=== PATIENT | female | born 1955 | race Caucasian/White ===

== ENCOUNTER 2021-04-21 07:29 | Outpatient (REF) | payer MEDICARE, SELFPAY | END 2021-04-21 07:30 | disposition home or self-care (01) | LOC: HO.LAB 07:29 | PROVIDERS: Visit Provider Internal Medicine | DX: Z20.822 Contact with and (suspected) exposure to COVID-19 (principal) | CPT/HCPCS: C9803; U0003; U0005 ==

== ENCOUNTER 2023-05-23 13:20 | Emergency (ER) | payer MEDICARE, MEDICAID, SELFPAY ==
--- NOTE | ~2023-05-23 | XR_ITS ---
EXAMINATION: XR CHEST CLINICAL INFORMATION: Shortness of breath COMPARISON: Chest radiograph 02/09/2018 TECHNIQUE: Frontal view of the chest was obtained. FINDINGS: No significant abnormality is noted involving the heart, lungs, mediastinum, bony thorax or soft tissues. XR/XR chest 1V IMPRESSION: Unremarkable examination.
--- NOTE | 2023-05-23 13:24 | ECG_ITS ---
Test Reason : dyspnea Blood Pressure : / mmHG Vent. Rate : 095 BPM Atrial Rate : 095 BPM P-R Int : 142 ms QRS Dur : 082 ms QT Int : 348 ms P-R-T Axes : 041 -05 013 degrees QTc Int : 437 ms Normal sinus rhythm Nonspecific ST and T wave abnormality Abnormal ECG When compared with ECG of 09-FEB-2018 14:53, Heart rate has increased Referred By: Melida Tejeda Electronically Signed By:MIRIAM GOFF MD
--- NOTE | 2023-05-23 13:25 | ED.GENADULT ---
HPI - General Adult General Chief complaint: Dyspnea Stated complaint: COVID + Time Seen by Provider: 05/23/23 14:44 Source: patient Mode of arrival: ambulatory Limitations: no limitations History of Present Illness HPI narrative: patient comes to the emergency room complaining of cough, multiple asthma exacerbations. Patient has been taking albuterol nebs at home. Patient went to see her primary care physician, tested positive for COVID, patient was asked to come to emergency room for further evaluation. Patient denies chest pain or shortness of breath at this time. Earlier today when patient arrived, patient received a nebulization treatment. Related Data Previous Rx's Medication Instructions Recorded ibuprofen 600 mg tablet 600 mg PO TID PRN fever or pain 05/23/23 #14 tabs prednisone 50 mg tablet 50 mg PO DAILY #4 tabs 05/23/23 Allergies Allergy/AdvReac Type Severity Reaction Status Date / Time From Lipitor Allergy Mild MYALGIAS Uncoded 03/12/20 14:56 Review of Systems Review of Systems: Constitutional : No Weight loss, No Fever, No Chills, No Night Sweats, No Fatigue, No Malaise ENT/Mouth : No Hearing loss, No Ear Pain, No Nasal Congestion, No Sinus Pain, No Hoarseness, No sore throat, No Rhinorrhea, No Swallowing Difficulty Eyes: No Eye Pain, No Swelling, No Redness, No Foreign Body, No Discharge, No Vision Changes Cardiovascular : No Chest Pain, No SOB, no Orthopnea, No Edema, No Palpitations Respiratory : complaining of cough, wheezing, shortness of breath Gastrointestinal : No Nausea, No Vomiting, No Diarrhea, No Constipation, No abdominal Pain, No Hematochezia, No Melena Genitourinary : no irregular bleeding, No Dysuria, No Urinary Frequency, No Hematuria, No Urinary Incontinence, No Urgency, No Flank Pain, No Urinary Flow Changes, No Hesitancy Musculoskeletal : No joint pain, No Myalgias, No Joint Swelling Skin : No Skin Lesions, No rash Neuro : No Weakness, No Numbness, No Paresthesias, No Loss of Consciousness, No Dizziness, No Headache Psych : No Anxiety/Panic, No Depression, No SI/HI/AH/VH, No Social Issues, Heme/Lymph: No Bruising, No Bleeding,No Lymphadenopathy Endocrine : No Polyuria, No Polydipsia, No Temperature Intolerance [facility] Past Medical History Medical History (Updated 05/23/23 @ 20:27 by Chelly Rodrigez MD) Depression Asthma Hypertension Parkinsons disease Social History Social History Advance Directives: No Physical Exam ED Vital Signs: Vital Signs - 24 hr 05/23/23 13:27 05/23/23 13:53 Temperature 97.7 F Pulse Rate 102 H 102 H Respiratory Rate 24 H 16 Blood Pressure 140/83 H Pulse Oximetry 98 Oxygen Delivery Method Room Air BMI result Body Mass Index 29.4 Const Other: Appearance: Alert. Oriented X3. No acute distress. Eyes: Pupils equal, round and reactive to light. ENT: Pharynx normal. Neck: Normal inspection. Neck supple. No lymph nodes noted. No crepitus CVS: Normal heart rate and rhythm. Pulses normal. Normal S1 and S2 Respiratory: No respiratory distress. bilateral wheezing, good air movement, no rales or crackles, oxygen saturation 98% on room air Abdomen: Soft and nontender. No rigidity. No distention. Skin: Skin warm and dry. Normal skin color. Normal skin turgor. Extremities: No lower extremity edema. No Lacerations. No Rash Neuro: Oriented X 3. No motor deficit. No sensory deficit. Moving all extremities. No slurred speech. CN 2 through 12 grossly intact Psych: calm, cooperative, normal affect Course Course Course Narrative: This is an RME: Additional HPI, ROS, PE not included below will be deferred to primary provider. 60-year-old female history of asthma, obesity, presenting to the emergency department with shortness of breath, chest discomfort patient tested positive for COVID at had an appointment with her PCP this morning via telehealth and was advised to come into the emergency department. Plan labs, imaging, EKG Medications Administered Discontinued Medications Generic Name Dose Route Start Last Admin Trade Name Freq PRN Reason Stop Dose Admin Albuterol Sulfate 2.5 mg/ 5 mg 05/23/23 13:43 05/23/23 13:47 Albuterol Sulfate 2.5 mg INHALE 05/23/23 13:44 5 mg ONCE ONE Administration Medical Decision Making Medical Decision Making [facility] Narrative: - my interpretation of labs: Hematology unremarkable, chemistry showed potassium 3.1, repleted orally, serology positive for COVID-19 - my interpretation of chest x-ray, no infiltrate - patient receiving a 2nd nebulization treatment, p.o. prednisone. - Discussed with the patient starting Paxlovid. however, patient has several medications that may interact with Macrobid. Patient will treat symptoms at home without antiviral - patient walking around her room, no oxygen desaturations - patient states that she has plenty of albuterol for her neb machine and pumps at home. Does not require prescription. Differential Diagnosis Differential Diagnoses: The differential diagnosis associated with the presentation includes ( asthma, COVID, influenza) Lab Data MDM Lab Attestation statement: I reviewed the patient's lab results. 05/23/23 16:01 05/23/23 16:01 Labs: Lab Results 05/23/23 Range/Units 16:01 WBC 7.7 (4.8-10.8) X10*3/uL RBC 4.92 (4.20-5.50) X10*6/uL Hgb 13.5 (12.0-16.0) g/dl Hct 40.8 (37.0-47.0) % MCV 82.9 (80.0-98.0) fL MCH 27.4 (27.0-33.0) pg MCHC 33.1 (31.0-35.0) g/dl RDW 13.8 (11.0-16.0) % Plt Count 285 (160-400) X10*3/uL MPV 8.9 L (9.4-12.3) fL Immature Gran % (Auto) 0.4 (0.0-0.4) % Neut % (Auto) 67.8 (45-73) % Lymph % (Auto) 21.3 (20-40) % [place] % (Auto) 10.1 (2-11) % Eos % (Auto) 0.1 (0-4) % Baso % (Auto) 0.3 (0-2) % Lymph # (Auto) 1.6 (1.2-4.9) X10*3/uL [place] # (Auto) 0.8 (0.1-1.2) X10*3/uL Eos # (Auto) 0.0 (0.0-0.4) X10*3/uL Baso # (Auto) 0.0 (0.0-0.2) X10*3/uL Abs Immat Gran (auto) 0.03 (0.00-0.03) X10*3/uL Absolute Neuts (auto) 5.2 (2.0-8.3) x10*3/uL Absolute Nucleated RBC 0.000 (0.0-0.012) X10*3/uL Nucleated RBC % (auto) 0.0 (0.0-0.2) /100WBC PT 12.4 (11.1-13.3) SEC INR 1.0 (0.9-1.1) Sodium 141 (135-145) mmol/L Potassium 3.1 L (3.3-5.1) mmol/L Chloride 105 (96-108) mmol/L Carbon Dioxide 26 (22-29) mmol/L Anion Gap 13 (12-20) BUN 10 (9-16) mg/dL Creatinine 0.75 (0.5-1.4) mg/dL Estim Creat Clear Calc 64.5 Estimated GFR > 60 Random Glucose 118 H (60-115) mg/dL Calcium 10.0 (8.4-10.2) mg/dL Magnesium 1.9 (1.6-2.6) mg/dL Total Bilirubin 0.4 (0.0-1.0) mg/dL AST 31 (5-31) U/L ALT 38 H (0-31) U/L Alkaline Phosphatase 125 H (39-117) U/L Troponin I High Sens < 2.7 (<3.5-17.0) ng/L B-Natriuretic Peptide < 10 (<100) pg/mL Total Protein 7.9 (6.5-8.0) g/dL Albumin 4.5 (3.5-5.0) g/dL COVID-19 (SCAR) Positive A (Negative) COVID-19 Clin Com See Note Independent Interpretation I performed an independent interpretation of an: Plain X-Ray Radiology Impression Discussion of test interpretation with radiology: I have reviewed the radiologist's reading. Radiologist Impression: FINDINGS: No significant abnormality is noted involving the heart, lungs, mediastinum, bony thorax or soft tissues. XR/XR chest 1V IMPRESSION: Unremarkable examination. Discharge Plan Discharge Clinical Impression: Asthma with exacerbation, COVID-19, Hypokalemia Patient Disposition: Home, Self-Care Instructions: Asthma (ED), Hypokalemia (ED), COVID-19 (Coronavirus Disease 2019) (ED) Additional Instructions: Please follow-up with your primary care physician tomorrow. If you have any worsening or new symptoms, please return to the emergency room or call 911 Prescriptions: New prednisone 50 mg tablet 50 mg PO DAILY Qty: 4 0RF ibuprofen 600 mg tablet 600 mg PO TID PRN (Reason: fever or pain) Qty: 14 0RF
[2023-05-23 13:27] VITALS: BP 140/83; PULSE 102; RESP 24; TEMP 36.5; O2SAT 98; BMI 29.4
[2023-05-23] MEDS: Albuterol Sulfate 2.5 MG, Albuterol Sulfate (0.083%) 2.5 MG 5 MG INHALE (13:47)
[2023-05-23 13:53] VITALS: PULSE 102; RESP 16; O2SAT 98
[2023-05-23 16:05] LABS: MANUAL DIFF FLAG NO
[2023-05-23 16:08] LABS: Basophils Percent Auto 0.3 % (0-2); Eosinophils Percent Auto 0.1 % (0-4); Hematocrit 40.8 % (37.0-47.0); Hemoglobin 13.5 g/dl (12.0-16.0); Imm Gran Abs Auto 0.03 X10*3/uL (0.00-0.03); Imm Gran Pct Auto 0.4 % (0.0-0.4); Lymphocytes Absolute Auto 1.6 X10*3/uL (1.2-4.9); Lymphocytes Percent Auto 21.3 % (20-40); Mean Corpuscular HGB Conc 33.1 g/dl (31.0-35.0); Mean Corpuscular Hemoglobin 27.4 pg (27.0-33.0); Mean Corpuscular Volume 82.9 fL (80.0-98.0); Mean Platelet Volume 8.9 fL (9.4-12.3); Monocytes Absolute Auto 0.8 X10*3/uL (0.1-1.2); Monocytes Percent Auto 10.1 % (2-11); Neutrophils Absolute Auto 5.2 x10*3/uL (2.0-8.3); Neutrophils Percent Auto 67.8 % (45-73); Platelet Count 285 X10*3/uL (160-400); Red Blood Count 4.92 X10*6/uL (4.20-5.50); Red Cell Distribution Width 13.8 % (11.0-16.0); White Blood Count 7.7 X10*3/uL (4.8-10.8)
[2023-05-23 16:13] LABS: IDNOW Serial# BCCEAD1C
[2023-05-23 16:14] LABS: COVID-19 Test Positive (Negative)
[2023-05-23 16:27] LABS: Prothrombin Time 12.4 SEC (11.1-13.3)
[2023-05-23 16:28] LABS: Alanine Aminotransferase 38 U/L (0-31); Albumin Level 4.5 g/dL (3.5-5.0); Alkaline Phosphatase 125 U/L (39-117); Anion Gap 13 (12-20); Aspartate Amino Transferase 31 U/L (5-31); Bilirubin Total 0.4 mg/dL (0.0-1.0); Blood Urea Nitrogen 10 mg/dL (9-16); Carbon Dioxide 26 mmol/L (22-29); Chloride 105 mmol/L (96-108); Creatinine Clr Calc Pharmacy 64.5; Estimated Glomerular Filt Rate > 60; Glucose Random 118 mg/dL (60-115); Magnesium 1.9 mg/dL (1.6-2.6); Potassium 3.1 mmol/L (3.3-5.1); Sodium 141 mmol/L (135-145); Total Protein 7.9 g/dL (6.5-8.0)
[2023-05-23 16:38] LABS: Troponin-I High Sensitivity < 2.7 ng/L (<3.5-17.0)
[2023-05-23 16:42] LABS: B Type Natriuretic Peptide < 10 pg/mL (<100)
[2023-05-23 20:00] VITALS: BP 121/80; PULSE 92; RESP 18; TEMP 37.4
[2023-05-23] MEDS: predniSONE 20 MG TABLET 60 MG PO (20:50)
[2023-05-23] MEDS: Potassium Chloride Packet 20 MEQ PACKET 40 MEQ PO (20:51)
[2023-05-23] MEDS: Albuterol Sulfate (0.083%) 2.5 MG/3 ML VIAL.NEB 5 MG INHALE (21:34)
[2023-05-23 21:36] VITALS: PULSE 98; RESP 18; O2SAT 98
== END 2023-05-23 21:54 | disposition home or self-care (01) ==
PROVIDERS: Physician Assistant; Emergency Provider Emergency Medicine; PCP Family Medicine
DX: U07.1 COVID-19 (principal); J45.901 Unspecified asthma with (acute) exacerbation; E87.6 Hypokalemia; R06.02 Shortness of breath; I10 Essential (primary) hypertension; G20.A1 Parkinson's disease without dyskinesia, without mention of fluctuations
CPT/HCPCS: 36415; 71045; 80053; 83735; 83880; 84484; 85025; 85610; 87635; 93005; 94640; 99284

== ENCOUNTER 2023-06-09 12:57 | Outpatient (REF) | payer MEDICARE, MEDICAID, SELFPAY | END 2023-06-09 12:58 | disposition home or self-care (01) | LOC: HO.HAP 12:57 | PROVIDERS: Visit Provider Family Medicine | DX: Z46.1 Encounter for fitting and adjustment of hearing aid (principal); H90.3 Sensorineural hearing loss, bilateral | CPT/HCPCS: 92593; 99499 ==

== ENCOUNTER 2023-07-17 12:35 | Emergency (ER) | payer OTHER, MEDICARE, SELFPAY ==
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
[2023-07-17 12:45] VITALS: BP 172/79; PULSE 90; O2SAT 99
[2023-07-17 12:46] VITALS: BP 143/69; PULSE 83; RESP 16; TEMP 36.6; O2SAT 96; BMI 30.5
--- NOTE | 2023-07-17 12:50 | ECG_ITS ---
Test Reason : CP Blood Pressure : / mmHG Vent. Rate : 081 BPM Atrial Rate : 081 BPM P-R Int : 146 ms QRS Dur : 086 ms QT Int : 350 ms P-R-T Axes : 059 -02 052 degrees QTc Int : 406 ms Normal sinus rhythm Nonspecific T wave abnormality Abnormal ECG When compared with ECG of 23-MAY-2023 14:51, Nonspecific T wave abnormality no longer evident in Inferior leads Referred By: Florina Metcalf Electronically Signed By:Vamsi Hooper
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
[2023-07-17 14:03] VITALS: BP 143/69; PULSE 85; RESP 15; TEMP 36.7; O2SAT 96
[2023-07-17] MEDS: Ondansetron ODT 4 MG TAB.RAPDIS TRANSLINGU (14:08)
--- NOTE | 2023-07-17 16:02 | PC.NURSE ---
C collar removed per Florina CHIRINOS
== END 2023-07-17 16:17 | disposition home or self-care (01) ==
PROVIDERS: Emergency Provider Emergency Medicine
DX: S16.1XXA Strain of muscle, fascia and tendon at neck level, initial encounter (principal); S46.911A Strain of unspecified muscle, fascia and tendon at shoulder and upper arm level, right arm, initial encounter; V43.52XA Car driver injured in collision with other type car in traffic accident, initial encounter; Y93.89 Activity, other specified; Y92.488 Other paved roadways as the place of occurrence of the external cause; Y99.9 Unspecified external cause status
CPT/HCPCS: 70450; 71046; 72125; 73030; 93005; 99283; 99284

== ENCOUNTER → 2023-07-17 12:50 | Outpatient (BNV) | payer MEDICARE, MEDICAID, SELFPAY | PROVIDERS: Emergency Provider Emergency Medicine; Visit Provider Internal Medicine Cardiovascular Disease | DX: R94.31 Abnormal electrocardiogram [ECG] [EKG] (principal); R07.9 Chest pain, unspecified | CPT/HCPCS: 93010 ==

== ENCOUNTER 2023-07-21 11:02 | Outpatient (AMB) | payer OTHER, MEDICARE, SELFPAY ==
[2023-07-21 11:04] VITALS: BP 120/80; PULSE 75; TEMP 36.5; O2SAT 96; BMI 29.7
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
== END 2023-07-21 11:54 | disposition home or self-care (01) ==
PROVIDERS: PCP Family Medicine; Visit Provider Physician Assistant
DX: M25.511 Pain in right shoulder (principal); V87.7XXA Person injured in collision between other specified motor vehicles (traffic), initial encounter
CPT/HCPCS: 99213

== ENCOUNTER 2025-05-26 10:15 | Observation (INO) | payer OTHER, SELFPAY ==
--- OUTSIDE RECORDS SUMMARY | 2025-05-19 15:00 | XMS_ITS | Encounter Summary ---
Author Organization [facility] Address [address] [place] [address] Care Team Providers Care Driver License Examiner Name Role Phone Josr Montejo MD Primary Care Provi jeffrey Reason for Visit * Reason Comments Shortness of Breath * Auth/Cert (Routine) Specialty Diagnoses / Procedures Referred By Contac t Referred To Contact Diagnoses Asthma Exacerbation of asthma, unspecified asthma severity, unspecified whether persistent Procedures . Juventino Nolan MD [address] [place] [address] Phone: tel: fax: [facility] [address] [place] [address] Phone: tel: Referral ID Status Reason Start Date Expiration Date Visits Re quested Visits Authorized [id number] 1 1 Encounter Details Date Type Department Care Team (Latest Contact Info) Description 05/19/2025 3:00 PM EST - 05/21/2025 1:47 PM EST Hospital Encounter [facility] [address] [place] [address] Wesley Mercedes MD [address] [address] Juventino Nolan MD [address] [place] [address] iLsa Toro MD [address] [place] [id number] Exacerbation of asthma, unspecified asthma severity, unspecified whether persistent (Primary Dx) Discharge Disposition: Home or Self Care Social History Tobacco Use Types Packs/Day Years Used Date Smoking Tobacco: Former Cigarettes 0 Q uit: 06/26/1964 Smokeless Tobacco: Never Alcohol Use Standard Drinks/Week Comments No 0 (1 standard drink = 0.6 oz pur e alcohol) Interpersonal Safety Answer Date Record ed Physical Abuse Unrecognized value 05/19/2025 Verbal Abuse Unrecognized value 05/19/2025 Comments Unknown Sex and Gender Information Value Date Recorded Sex Assigned at Female 05/19/2025 6:37 PM EST Legal Sex Female 2:14 PM EST Gender Identity Female 05/19/2025 6:37 PM EST Sexual Orientation Not on file documented as of this encounter Last Filed Vital Signs Vital Sign Reading Time Taken Comments Blood Pressure 130/73 05/21/2025 1:00 PM EST Pulse 84 05/21/2025 1:00 PM EST Temperature 36.9 C (98.4 F) 05/21/2025 1:00 PM EST Respiratory Rate 18 05/21/2025 1:00 PM EST Oxygen Saturation 95% 05/21/2025 1:00 PM EST Inhaled Oxygen Concentration - - Weight - - Height - - Body Mass Index - - documented in this encounter Functional Status * Calculated C-SSRS Risk Score (Lifetime/Recent) Answer Date of Assessment Author No Risk Indicated 05/19/2025 3:14 PM EST Kevin Parker RN * Dixon Suicide Severity Rating Scale (Screener/Recent Self-Report) Question Answer Date of Assessment Author 1. Wish to be (Past 1 Month) No 025 3:14 PM EST Kevin Parker RN 2. Non-Specific Active Suici jesus Thoughts (Past 1 Month) No 05/19/2025 3:14 PM EST Jak Parker RN 6. Suicidal Behavior (Lifetime) No 3:14 PM EST Kevin Parker RN documented as of this encounter Discharge Summaries * Lisa Toro MD - 05/21/2025 8:12 AM EST Images from the original note were not included. [place] DISCHARGE SUMMARY Patient Information Sarahi Henry : 1955 [70 y.o.] Admitting Provider Juventino Nolan MD Discharge Provider Lisa Toro MD, Lisa Toro MD Primary Care Physician Josr Trinidad MD Admission Date 05/19/2025 Discharge Date 05/21/2025 Summary of Hospital Problems Primary Discharge Diagnosis: Acute acute asthma exacerbation due to rhinovirus, enterovirus History of moderate intermittent asthma Secondary Discharge Diagnosis: Hypertension Discharge Destination: Home Code Status at Discharge: Full Code - Confirmed Hospital Course Summary 70-year-old lady with history of depression Parkinson's disease hypertension asthma, who came in with shortness of breath was admitted for acute acute asthma exacerbation secondary to human rhinovirus/enterovirus Acute asthma exacerbation, history of mild to moderate persistent asthma. Patient was not hypoxic but was diffusely wheezing and short of breath on minimal exertion. She wastreated with IV Solu-Medrol for 48 hours and then switched to p.o. prednisone 40 mg daily for 5 days. Chest x-ray did not show any evidence of pneumonia viral panel was positive for rhinovirus and enterovirus Continue with home inhalers She currently does not require any supplemental oxygen, continue with cough syrup as needed hypokalemia - Potassium 3.4. Repleted CHRONIC MEDICAL ISSUES: Hypertension - Amlodipine continued with hold parameters Parkinson's disease - Carbidopa/levodopa continued. Osteoarthritis - Patient prescribed piroxicam outpatient. Depression - Fluoxetine and mirtazapine continued GERD - Omeprazole continued. Disposition Home in stable condition Follow-Up Instructions and Recommendations Primary care provider (PCP) Josr Trinidad MD [address] [place] [phone] Discharge Procedure Orders Discharge Diet: Return to previous diet Order Specific Question Answer Comments General Instructions for your diet at home Return to previous diet Primary care provider (PCP) Order Specific Question Answer Comments Instructions for follow-up: 1-2 wks Follow-Up as Needed Follow-Up as Needed No restrictions, resume your usual activities There are no outpatient Patient Instructions on file for this admission. Discharge Medications Your medication list START taking these medications Instructions Last Dose Given Next Dose Due guaiFENesin 100 mg/5 mL liquid Commonly known as: ROBITUSSIN Take 10 mL (200 mg total) by mouth 3 (three) times a day if needed for cough for up to 5 days. CHANGE how you take these medications Instructions Last Dose Given Next Dose Due predniSONE 10 mg tablet Commonly known as: DELTASONE What changed: Another medication with the same name was added. Make sure you understand how and when to take each. Take 1 tablet (10 mg total) by mouth 2 (two) times a day. predniSONE 20 mg tablet Commonly known as: DELTASONE What changed: You were already taking a medication with the same name, and this prescription was added. Make sure you understand how and when to take each. Take 2 tablets (40 mg total) by mouth 1 (one) time each day for 5 days. CONTINUE taking these medications Instructions Last Dose Given Next Dose Due albuterol HFA 90 mcg/actuation inhaler Commonly known as: PROAIR HFA ; PROVENTIL HFA ; VENTOLIN HFA Inhale 2 puffs by mouth every 4 (four) hours if needed for wheezing or shortness of breath. calcium carbonate-vitamin D 600 mg-10 mcg (400 unit) per tablet Take 1 tablet by mouth 2 (two) times a day. carbidopa-levodopa 25-100 mg per tablet Commonly known as: SINEMET Take 1 tablet by mouth 3 (three) times a day. FLUoxetine 20 mg capsule Commonly known as: PROzac Take 1 capsule (20 mg total) by mouth 2 (two) times a day. loratadine 10 mg tablet Commonly known as: CLARITIN Take 1 tablet (10 mg total) by mouth daily. mirtazapine 15 mg tablet Commonly known as: REMERON Take 1 tablet (15 mg total) by mouth at bedtime. montelukast 10 mg tablet Commonly known as: SINGULAIR Take 1 tablet (10 mg total) by mouth 1 (one) time each day. omeprazole [address] capsule Commonly known as: PriLOSEC Take 1 capsule (40 mg total) by mouth 1 (one) time each day. piroxicam 20 mg capsule Commonly known as: FELDENE Take 1 capsule (20 mg total) by mouth 1 (one) time each day. Xolair 150 mg/mL syringe subcutaneous syringe Generic drug: omalizumab Inject 1 mL (150 mg total) under the skin every 28 (twenty-eight) days. Where to Get Your Medications These medications were sent to [facility] at [place], [place] - [facility] [address] [facility] [address] guaiFENesin 100 mg/5 mL liquid predniSONE 20 mg tablet Physical Exam at time of Discharge Physical Exam Constitutional: Appearance: Normal appearance. Comments: Appears much more comfortable reports that she is able to walk to the bathroom without getting severely short of breath HENT: Head: Normocephalic and atraumatic. Mouth/Throat: Mouth: Mucous membranes are moist. Eyes: Extraocular Movements: Extraocular movements intact. Pupils: Pupils are equal, round, and reactive to light. Cardiovascular: Rate and Rhythm: Normal rate and regular rhythm. Pulses: Normal pulses. Pulmonary: Effort: Pulmonary effort is normal. Comments: A few expiratory wheezes and rhonchi Abdominal: General: Abdomen is flat. Bowel sounds are normal. Musculoskeletal: General: Normal range of motion. Cervical back: Normal range of motion and neck supple. Skin: General: Skin is warm. Findings: No erythema or rash. Neurological: General: No focal deficit present. Mental Status: She is alert and oriented to person, place, and time. Psychiatric: Mood and Affect: Mood normal. Vitals Visit Vitals BP 117/66 (BP Location: Right arm, Patient Position: Lying) Pulse 92 Temp 36.7 ??C (98 ??F) (Temporal) Resp 17 Temp (24hrs), Av.8 ??C (98.2 ??F), Min:36.6 ??C (97.9 ??F), Max:37.1 ??C (98.7 ??F) There is no height or weight on file to calculate BMI. No results found for: PTWT , PTHT documented in this encounter Medications at Time of Discharge albuterol HFA (PROAIR HFA ; PROVENTIL HFA ; VENTOLIN HFA) 90 mcg/actuation inhaler Inhale 2 puffs by mouth every 4 (four) hours if needed for wheezing or shortness of breath. 10/23/2024 calcium carbonate-vitamin D 600 mg-10 mcg (400 unit) per tablet Take 1 tablet by mouth 2 (two) times a day. 04/17/2025 FLUoxetine (PROzac) 20 mg capsule Take 1 capsule (20 mg total) by mouth 2 (two) times a day. 08/25/2022 loratadine (CLARITIN) 10 mg tablet Take 1 tablet (10 mg total) by mouth daily. 07/13/2021 mirtazapine (REMERON) 15 mg tablet Take 1 tablet (15 mg total) by mouth at bedtime. 03/04/2025 omeprazole (PriLOSEC) [address] capsule Take 1 capsule (40 mg total) by mouth 1 (one) time each day. 03/14/2025 piroxicam (FELDENE) 20 mg capsule Take 1 capsule (20 mg total) by mouth 1 (one) time each day. 04/15/2025 predniSONE (DELTASONE) 10 mg tablet Take 1 tablet (10 mg total) by mouth 2 (two) times a day. 05/16/2025 Xolair 150 mg/mL syringe subcutaneous syringe Inject 1 mL (150 mg total) under the skin every 28 (twenty-eight) days. 08/19/2022 carbidopa-levodopa (SINEMET) 25-100 mg per tablet Take 1 tablet by mouth 3 (three) times a day. guaiFENesin (ROBITUSSIN) 100 mg/5 mL liquid Take 10 mL (200 mg total) by mouth 3 (three) times a day if needed for cough for up to 5 days. 60 mL 05/21/2025 5 montelukast (SINGULAIR) 10 mg tablet Take 1 tablet (10 mg total) by mouth 1 (one) time each day. predniSONE (DELTASONE) 20 mg tablet Take 2 tablets (40 mg total) by mouth 1 (one) time each day for 5 days. 10 each 05/21/2025 5 documented as of this encounter Ordered Prescriptions Prescription Sig Dispense Quantity Refills Last Filled Start Date End Date guaiFENesin (ROBITUSSIN) 100 mg/5 mL liquid Take 10 mL (200 mg total) by mouth 3 (three) times a day if needed for cough for up to 5 days. 60 mL 05/21/2025 5 predniSONE (DELTASONE) 20 mg tablet Take 2 tablets (40 mg total) by mouth 1 (one) time each day for 5 days. 10 each 05/21/2025 5 documented in this encounter Discharge Disposition Disposition Code Departure Means Destination Comment s Home or Self Care Car documented in this encounter Progress Notes * Macrina Bro RN - 05/21/2025 1:39 PM EST Pt medically cleared for discharge. Dispo is home self-care. No skilled need for VNA. Family to provide transportation. * Chelsea Carrera RN - 05/21/2025 12:52 PM EST Patient is being discharged home to provide self care. Two new medications were called into the patient's pharmacy, located at [address] [place] [address]. Patient does not have any activity restrictions and/or diet restrictions and should return to her previous routine. Pt educated to follow-up with her PCP within 7-14 days. Medication regimen reviewed with patient. Red flags discussed with patient and when she should return to the emergency room; develops chest pain, worsening shortness of breath and/or the inability to keep food down without vomiting. * Catalina Valera RN - 05/20/2025 9:01 AM EST 05/20/25 0900 Initial Transition Plan Initial Transition Plan Home Back up Transition Plan Back up Transition plan Home Discharge Planning Living Arrangements Spouse/significant other Type of Residence Private residence ([facility]) Assistive Devices None Support Systems Spouse/significant other;Children Medication Coverage Has Med Coverage Under Insurance Plan Yes Medication Affordability No concerns related to payment for meds Anticipated Discharge Needs Discipline following for SNF placement Technical Service Representative Informed Choice Informed Choice Given? Yes Transportation Transportation at discharge Family (brother) [place]: 05/21 Plan: home self Barriers: rhino +, IV steroids, Therapy Eval: na Referral status: na Auth status: na Last BM: unk Pharmacy: [facility] HCP: No Support Persons and Availability: Family PCP: Josr Trinidad MD * Lisa Toro MD - 05/20/2025 8:04 AM EST Images from the original note were not included. [place] PROGRESS NOTE Date: 05/20/2025 Author: Lisa Toro MD Patient ID: Sarahi Henry is a 70 y.o. female : 1955 MR#: [id number] SUBJECTIVE Patient is sitting in the bed short of breath wheezing coughing and not able to complete her sentence without getting short of breath. Current Medications: MEDSSCHEDULED[1] MEDSCONTINUOUS[2] MEDSPRN[3] OBJECTIVE Last Recorded Vitals: Vitals: 05/19/25 2351 05/20/25 0325 05/20/25 0720 05/20/25 0742 BP: 113/71 134/77 135/79 BP Location: Left arm Left arm Patient Position: Lying Lying Pulse: 81 73 75 Resp: 14 20 20 Temp: 36.2 ??C (97.2 ??F) 36.1 ??C (97 ??F) 35.8 ??C (96.5 ??F) TempSrc: Temporal Temporal Temporal SpO2: 94% 96% 98% 99% Physical Exam Constitutional: Comments: Patient is in moderate distress she is coughing short of breath and wheezing extensively HENT: Head: Normocephalic and atraumatic. Mouth/Throat: Mouth: Mucous membranes are moist. Eyes: Extraocular Movements: Extraocular movements intact. Pupils: Pupils are equal, round, and reactive to light. Cardiovascular: Rate and Rhythm: Normal rate and regular rhythm. Pulses: Normal pulses. Pulmonary: Effort: Respiratory distress present. Breath sounds: Wheezing and rhonchi present. Abdominal: General: Abdomen is flat. Bowel sounds are normal. Musculoskeletal: General: Normal range of motion. Cervical back: Normal range of motion and neck supple. Skin: General: Skin is warm. Findings: No erythema or rash. Neurological: General: No focal deficit present. Mental Status: She is alert and oriented to person, place, and time. Psychiatric: Mood and Affect: Mood normal. Lab Results: Admission on 05/19/2025 Component Date Value Ventricular Rate ECG 05/19/2025 99 Atrial Rate 05/19/2025 99 P-R Interval 05/19/2025 136 QRS Duration 05/19/2025 80 Q-T Interval 05/19/2025 330 QTc 05/19/2025 423 P Wave [place] 05/19/2025 39 R [place] 05/19/2025 -10 T [place] 05/19/2025 10 ECG Interpretation 05/19/2025 Value:Normal sinus rhythm Nonspecific ST and T wave abnormality Abnormal ECG No previous ECGs available BNP 05/19/2025 37 Sodium 05/19/2025 143 Potassium 05/19/2025 3.4 (L) Chloride 05/19/2025 106 CO2 05/19/2025 19 (L) Anion Gap 05/19/2025 18 (H) Glucose 05/19/2025 174 (H) BUN 05/19/2025 12 Creatinine 05/19/2025 0.73 eGFR 05/19/2025 89 BUN/Creatinine Ratio 05/19/2025 16.4 Calcium 05/19/2025 9.7 AST (SGOT) 05/19/2025 18 ALT (SGPT) 05/19/2025 20 Alkaline Phosphatase 05/19/2025 103 Total Protein 05/19/2025 7.3 Albumin 05/19/2025 4.6 Total Bilirubin 05/19/2025 0.4 Magnesium 05/19/2025 2.6 High Sensitivity Troponi* 05/19/2025 <3 Protime 05/19/2025 10.8 INR 05/19/2025 0.9 aPTT 05/19/2025 30.6 pH, Damir 05/19/2025 7.44 (H) pCO2, Damir 05/19/2025 28 (L) pO2, Damir 05/19/2025 42 (H) HCO3, Venous 05/19/2025 21.4 (L) O2 Sat, Damir 05/19/2025 77.6 Base Excess, Damir 05/19/2025 -3.8 (L) WBC 05/19/2025 7.9 RBC 05/19/2025 4.70 Hemoglobin 05/19/2025 13.0 Hematocrit 05/19/2025 39.1 MCV 05/19/2025 83.2 MCH 05/19/2025 27.7 MCHC 05/19/2025 33.2 RDW 05/19/2025 13.4 Platelets 05/19/2025 371 MPV 05/19/2025 9.8 NRBC 05/19/2025 0.0 NRBC Absolute 05/19/2025 0.00 Neutrophils Relative 05/19/2025 78.0 Lymphocytes Relative 05/19/2025 20.4 Monocytes Relative 05/19/2025 1.0 Eosinophils Relative 05/19/2025 0.0 Basophils Relative 05/19/2025 0.1 Immature Granulocytes Re* 05/19/2025 0.5 Neutrophils Absolute 05/19/2025 6.19 Lymphocytes Absolute 05/19/2025 1.62 Monocytes Absolute 05/19/2025 0.08 (L) Eosinophils Absolute 05/19/2025 0.00 Basophils Absolute 05/19/2025 0.01 Immature Granulocytes Ab* 05/19/2025 0.04 (H) D-Dimer, Quant (D-DU) 05/19/2025 <150 Adenovirus Detection by * 05/19/2025 Not Detected Influenza A PCR 05/19/2025 Not Detected Influenza B PCR 05/19/2025 Not Detected Coronavirus 229E 05/19/2025 Not Detected Coronavirus HKU1 05/19/2025 Not Detected Coronavirus OC43 05/19/2025 Not Detected Coronavirus NL63 05/19/2025 Not Detected Parainfluenza Virus 1 05/19/2025 Not Detected Parainfluenza Virus 2 05/19/2025 Not Detected Parainfluenza Virus 3 05/19/2025 Not Detected Parainfluenza Virus 4 05/19/2025 Not Detected RSV PCR 05/19/2025 Not Detected Human Metapneumovirus A * 05/19/2025 Not Detected Rhinovirus/Enterovirus 05/19/2025 Detected (A) Bordetella pertussis 05/19/2025 Not Detected Bordetella parapertussis 05/19/2025 Not Detected Mycoplasma pneumo by PCR 05/19/2025 Not Detected Chlamydia pneumoniae 05/19/2025 Not Detected SARS COV-2 05/19/2025 Not Detected Sodium 05/20/2025 142 Potassium 05/20/2025 4.6 Chloride 05/20/2025 106 CO2 05/20/2025 22 Anion Gap 05/20/2025 14 (H) Glucose 05/20/2025 125 (H) BUN 05/20/2025 14 Creatinine 05/20/2025 0.72 eGFR 05/20/2025 90 BUN/Creatinine Ratio 05/20/2025 19.4 Calcium 05/20/2025 9.5 WBC 05/20/2025 8.8 RBC 05/20/2025 4.30 Hemoglobin 05/20/2025 12.0 Hematocrit 05/20/2025 35.9 MCV 05/20/2025 83.5 MCH 05/20/2025 27.9 MCHC 05/20/2025 33.4 RDW 05/20/2025 13.8 Platelets 05/20/2025 368 MPV 05/20/2025 10.0 NRBC 05/20/2025 0.0 NRBC Absolute 05/20/2025 0.00 Imaging: XR Chest 1 View Narrative: XR CHEST 1 VIEW INDICATION: Shortness of breath TECHNIQUE: XR CHEST 1 VIEW COMPARISON: No priors available. Impression: FINDINGS/IMPRESSION: No pneumonia or pulmonary edema. Right diaphragmatic eventration. No pleural effusion or pneumothorax. Cardiac silhouette is normal in size. Bones are normal. Cholecystectomy clips. -------- FINAL REPORT -------- Dictated By: EZEKIEL TAN Dictated Date: 05/19/2025 16:15 ET Assigned Physician: EZEKIEL TAN Reviewed and Electronically Signed By: EZEKIEL TAN Signed Date: 05/19/2025 16:15 ET Workstation ID: [id number] Transcribed By: Self Edit Transcribed Date: 05/19/2025 16:15 ET ASSESSMENT & PLAN Principal Problem: Asthma 70-year-old lady with history of depression Parkinson's disease hypertension asthma, who came in with shortness of breath was admitted for acute acute asthma exacerbation secondary to human rhinovirus/enterovirus Acute asthma exacerbation, history of mild persistent asthma. Patient is currently very short of breath wheezing profoundly, expiratory rhonchi, short of breath on minimal exertion not able to complete sentences due to severe dyspnea. Will continue with IV Solu-Medrol, continue with DuoNebs, no indication for antibiotics as chest x-ray did not show any pneumonia. Hypokalemia - Potassium 3.4. Repleted CHRONIC MEDICAL ISSUES: Hypertension - Amlodipine continued with hold parameters Parkinson's disease - Carbidopa/levodopa continued. Osteoarthritis - Patient prescribed piroxicam outpatient. Depression - Fluoxetine and mirtazapine continued GERD - Omeprazole continued. VTE Prophylaxis: Lovenox 40 subcu daily Full Code - Confirmed Disposition/patient need hospital stay because : Very short of breath on minimal exertion, wheezing Health care proxy with phone number : [1] calcium carbonate-vitamin D, 1 tablet, oral, BID carbidopa-levodopa, 1 tablet, oral, TID FLUoxetine, 20 mg, oral, BID guaiFENesin, 600 mg, oral, q12h HUNTER ipratropium-albuteroL, 3 mL, nebulization, 4x daily loratadine, 10 mg, oral, Daily methylPREDNISolone sod suc, 60 mg, intravenous, q6h HUNTER mirtazapine, 15 mg, oral, Nightly montelukast, 10 mg, oral, Daily pantoprazole, 40 mg, oral, q AM AC [2] [3] PRN medications: albuterol * Kevin Parker RN - 05/19/2025 5:15 PM EST ED RN HANDOFF (All Guerra Below Must Be Completed) Reason/Diagnosis for Admission: Asthma exacerbation - obs Type of Admission: [] Medsurg, [x] Telemetry Already in a Hospital Bed: [] Yes / [x] No Room Considerations/Precautions (ex: fever, diarrhea, or any infectious concerns): [] Yes / [x] No Terminologist: [x] Yes / [] No If YES, Cardiac Rhythm: [] NSR, [] SB, [x] ST, [] A-FIB, [] A-Flutter, [] Pacemaker, [] 1st Degree HB, [] 2nd Degree HB, [] 3rd Degree HB Reason for Terminologist: sinus tach O2 []Yes /[]No If YES, how many Liters: VS: Visit Vitals BP (!) 140/83 (BP Location: Left arm, Patient Position: Lying) Pulse 98 Temp 37 ??C (98.6 ??F) (Oral) Resp 22 SpO2 96% Smoking Status Former Current Mental Status: A/O x [x]4, []3, []2, []1 IV Access: [x] Yes / [] No Field IV present: [x] Yes / [] No Hx of Violence: [] Yes / [x] No / [] Unknown Current Ambulation Status: ambulatory to bedside commode, gets very short of breath when ambulating. Fall Risk:[x] Yes / [] No Yellow Bracelet Applied [x] Yes / [] No Yellow Socks Applied [x] Yes / [] No Patient Belongings inventoried and BL completed: [x] Yes / [] No Patient belongings stored in the security closet: [] Yes (If Yes please supply Security bag #): [] No Patient Medications stored in Pharmacy: [] Yes (If Yes please supply Medication Security bag #): [] No ED Summary of Care: Patient presented to the ER with asthma exacerbation. Patient received two duo nebs in the ER, patient states feeling a lot better after them. Patient alert and oriented X4. Ambulatory using a cane/walker to the bedside commode. Patient on athletic training internship sinus tach in the 100's. Patient oxygen is at 97-100% with duo nebs and on room air. When speaking can say a couple of words and then feels out of breathe, has gotten better over time as she's been in the ER. Kevin Parker RN #[id number] 05/19/251721 Kevin Parker RN 05/19/251721 * Kevin Parker RN - 05/19/2025 3:04 PM EST Patient BIBAris with complaints of an asthma attack. Hx of asthma, today it has exacerbated. Speaking in 3-5 word sentences. Takes albuterol, lung sounds wheezy. PER EMS duo neb, still very out of breath. Alert and oriented X4. * Wesley Mercedes MD - 05/19/2025 2:57 PM ESTAssociated Order(s): Critical Care HPI Chief Complaint Patient presents with Shortness of Breath HPI Patient is a 70-year-old female with history of asthma, hypertension, lipidemia, fibromyalgia, Parkinson's disease presenting for respiratory distress. Patient is been having a cough and shortness ofbreath that is been worsening over the last 10 days. Last 3 to 4 days she has been using her albuterol inhaler every 4 hours with limited relief of her symptoms. With EMS she received Solu-Medrol 125 mg IV, 2 g of IV magnesium, 2 DuoNebs. Patient denies hormone use, recent immobilization or surgery, malignancy treatment within 6 months hemoptysis, or history of PE or DVT. No history of LA, cardiac stenting or CHF. Guru Coma Scale Score: 15 Patient History Medical History[1] Surgical History[2] Family History[3] Social History Tobacco Use Smoking status: Former Current packs/day: 0.00 Types: Cigarettes Quit date: 06/26/1964 Years since quittin.9 Smokeless tobacco: Never Substance Use Topics Alcohol use: No Drug use: No Review of Systems Review of Systems Physical Exam ED Triage Vitals 05/19/25 1506 Temp Heart Rate Resp BP 37 ??C (98.6 ??F) 98 22 (!) 140/83 SpO2 Temp Source Heart Rate Source Patient Position 96 % Oral Monitor Lying BP Location FiO2 (%) Left arm -- Physical Exam Vitals reviewed - General: Adult, awake & alert, in acute respiratory distress - HEENT: grossly NC/AT, PERRLA, EOMI, OP clear without exudates or erythema, MMM - Neck: Moving normally. No obvious deformities. No tenderness - Pulm: Patient speaking in 3-4 word sentences, airflow bilateral lung guerra, faint wheezing heardon auscultation, mild accessory muscle use, patient is receiving second DuoNeb initiated by EMS at this time - CV: Regular rate, regular rhythm. No murmurs/rubs appreciated. - Chest wall: No chest wall bruising or lesions. - Abd/GI: Soft, ND. NTTP, no rebound or guarding. - Back/Flanks: No skin findings. No tenderness. - MSK: Radial and DP pulses 2+ bilaterally. No lower extremity edema. - Neuro: Alert. Grossly oriented. Normal fluent speech. Moves all extremities well. Grossly no acute focal exam findings. - Derm: Warm and dry. No rashes noted. - Psych: Calm, cooperative, appropriate Additional findings:_ ED Course & MDM Clinical Impressions as of 05/19/25 1700 Exacerbation of asthma, unspecified asthma severity, unspecified whether persistent Medical Decision Making EKG sinus rhythm 99 bpm, intervals within normal limits, normal axis, nonspecific T wave flatteningI suspect secondary to artifact. My preliminary interpretation of chest x-ray no consolidation, effusion or pneumothorax. I agree with radiology interpretation. Labs reviewed notable for pCO2 28, pH 7.44, no leukocytosis, no anemia, potassium 3.4, serum glucose 174, anion gap 18, CO2 19, troponin negative, BNP negative, D-dimer negative, coags stable. On reevaluation patient endorsed significant improvement of her symptoms after 3 DuoNebs today, IV magnesium and steroids. Patient continues to have wheezing on auscultation and coughing requiring additional nebulizer treatment. Wells score for PE 0, D-dimer negative. Less likely PE in the setting of presentation and workup today that showed an improvement of symptoms after multiple nebulizer treatments which is concerning for asthma exacerbation. I considered a broad differential diagnosis including but not limited to CHF exacerbation, ACS, pneumothorax, pneumonia, all less likely given presentation and workup today. Patient continues to have diffuse wheezing on exam despite DuoNeb x 3, IV magnesium and IV Solu-Medrol today. Given that pt states she has been taking nebulizer treatments every 4 hours at home priorto presentation to the ER, I believe patient would benefit from admission for suspected asthma exacerbation. I will defer to inpatient team for further workup, management and evaluation. I discussed patient with admitting physician Dr. Nolan, patient was admitted to medicine. Critical Care Performed by: Wesley Mercedes MD Authorized by: Wesley Mercedes MD Critical care provider statement: Critical care time (minutes): 35 Total face to face critical care time (minutes): 35 Critical care time was exclusive of: Separately billable procedures and treating other patients Critical care was necessary to treat or prevent imminent or life-threatening deterioration of the following conditions: Respiratory failure Critical care was time spent personally by me on the following activities: Development of treatmentplan with patient or surrogate, discussions with consultants, evaluation of patient's response to treatment, ordering and review of laboratory studies, ordering and review of radiographic studies, re- evaluation of patient's condition, review of old charts, ordering and performing treatments and interventions and examination of patient I assumed direction of critical care for this patient from another provider in my specialty: no Care discussed with: admitting provider Comments: Asthma exacerbation requiring greater than 3 DuoNeb treatments, IV methylprednisone and IV magnesium today to prevent further catastrophic decompensation resulting in respiratory failure. Wesley Mercedes MD 05/19/25 1518 Wesley Mercedes MD 05/19/25 1702 [1] Past Medical History: Diagnosis Date Asthma DX:Asthma Conjunctivitis 08/23/2012 DX:Conjunctivitis Depressive disorder, not elsewhere classified DX:Depressive disorder, not elsewhere classified Elevated BP without diagnosis of hypertension 05/07/2018 DX:Elevated BP without diagnosis of hypertension Essential hypertension 06/12/2018 DX:Essential hypertension Lump or mass in breast DX:Lump or mass in breast Osteoporosis 03/15/2010 DX:Osteoporosis Other and unspecified ovarian cyst DX:Other and unspecified ovarian cyst Thyroid nodule 08/2016 DX:Thyroid nodule; COMMENT: need repeat bx in 3 mo Unspecified asthma(493.90) DX:Unspecified asthma(493.90) [2] Past Surgical History: Procedure Laterality Date BREAST BIOPSY Right sping of 2015 PROCEDURE: BX BREAST; PERC NEEDLE CORE W/IMAG GUID; COMMENT: b9 BREAST BIOPSY Left 2017 PROCEDURE: BX BREAST; PERC NEEDLE CORE W/IMAG GUID; COMMENT: manager quality systems asp BREAST SURGERY Bilateral PROCEDURE: GA UNLISTED PROCEDURE BREAST; COMMENT: needle aspiratons COLONOSCOPY 02/15/08 PROCEDURE: HISTORICAL COLONOSCOPY; COMMENT: normal; repeat in ten years HYSTERECTOMY PROCEDURE: HISTORICAL VAGINAL HYSTERECTOMY W/O BSO OTHER SURGICAL HISTORY PROCEDURE: GA EXC CYST/ABERRANT BREAST TISSUE OPEN 1/> LESION; COMMENT: times two- benign lesions OTHER SURGICAL HISTORY 03/30/2018 PROCEDURE: COLON CA SCRN NOT HI RSK IND; COMMENT: normal; repeat in 10 yrs OVARIAN CYST REMOVAL PROCEDURE: GA OVARIAN CYSTECTOMY UNI/BI TONSILLECTOMY PROCEDURE: HISTORICAL TONSILLECTOMY; COMMENT: adenoidectomy TUBAL LIGATION PROCEDURE: HISTORICAL TUBAL LIGATION [3] Family History Problem Relation Name Age of Onset Diabetes Mother Pancreatic cancer Mother Heart attack Mother Heart attack Father age 65 Other (Other: thyroid cancer) Sister 72 Mental illness Sister depression x3 Schizophrenia Brother Asthma Brother Colon cancer Brother 60.00 Other (Other: well) Maternal Grandmother Heart attack Son Breast cancer Aunt 82.00 maternal Wesley Mercedes MD 05/20/25 0732 documented in this encounter H&P Notes * Caryn Guzman NP - 05/19/2025 6:21 PM EST Images from the original note were not included. .. [facility] Please contact author [Caryn Guzman NP] via [employer]. Patient: Sarahi Henry Admission Date/Time: 05/19/2025 3:00 PM : 1955 [70 y.o.] Patient's PCP: Josr Trinidad MD Attending Provider: Wesley Mercedes MD;Nerminaris* CHIEF COMPLAINT I feel like I have been experiencing asthma flares every week however over the past 10 days I beenextremely short of breath and it just keeps worsening HISTORY OF PRESENT ILLNESS This is a 70-year-old female with a past medical history significant for hypertension, vertigo, Parkinson's disease, osteoporosis, asthma, nontoxic multinodular goiter who presents emergency department today for evaluation of shortness of breath ongoing for the past 10 days. Upon assessment of patient, she tells me that she has been maintained on Xolair for over a year nowhowever recently there has been a change in how the medication is mixed? She reports since then, she has noticed that she has been experiencing asthma flares at least once a week . Patient is speaking in short sentences however she is on room air. She has family present and are at bedside. Patient reports 10 days ago she was experiencing a fever however she has not been experiencing a fever at this time and she is denying sick or potential COVID-19 exposures/contacts. Patient reports that she has been attempting to use her DuoNeb/albuterol treatments without any relief. Chest x-ray: No pneumonia or pulmonary edema. Right diaphragmatic eventration. No pleural effusion or pneumothorax. Cardiac silhouette is normal in size. Bones are normal. Cholecystectomy clips. ECG: NSR Initial laboratory results: VBG's revealed pH 7.44, pCO2 28, pO2 42, HCO3 21.4- compensated metabolic acidosis, CMP unremarkable with exception of potassium 3.4, CO2 19, anion gap 18, glucose 174. CBCwith differential unremarkable. D- dimer less than 150. In the emergency department the above was performed and patient received 6 mL of nebulized ipratropium-albuterol. The decision was made to admit patient for medical management Review of Systems A complete 10 point review of systems has been performed and if not noted in HPI is otherwise negative. MEDICAL HISTORY Past Medical History Medical History[1] Past Surgical History Surgical History[2] Social History reports that she quit smoking about 60 years ago. Her smoking use included cigarettes. She has never used smokeless tobacco. She reports that she does not drink alcohol and does not use drugs. Family History family history includes Asthma in her brother; Breast cancer (age of onset: 82.00) in her aunt; Colon cancer (age of onset: 60.00) in her brother; Diabetes in her mother; Heart attack in her father, mother, and son; Mental illness in her sister; Other: thyroid cancer in her sister; Other: well in her maternal grandmother; Pancreatic cancer in her mother; Schizophrenia in her brother. Allergies has no known allergies. Home Medications Medications Ordered Prior to Encounter[3] OBJECTIVE Vitals Visit Vitals BP (!) 140/83 (BP Location: Left arm, Patient Position: Lying) Pulse 98 Temp 37 ??C (98.6 ??F) (Oral) Resp 22 Temp (24hrs), Av ??C (98.6 ??F), Min:37 ??C (98.6 ??F), Max:37 ??C (98.6 ??F) There is no height or weight on file to calculate BMI. No results found for: PTWT , PTHT Physical Examination General: Appears stated age, moderate respiratory distress, tachypneic and is answering questions in short sentences, she is observed on room air. Skin: Clean, dry and intact, no obvious open wounds or sores, bruises or abrasions Cardiac: Tachycardic, S1-S2 noted, no murmurs, rubs, gallops or clicks, no JVD or interstitial edema, no carotid bruits Respiratory: Expiratory wheezing noted throughout, no rales or rhonchi, no accessory respiratory muscles noted or evidence of nasal flaring. Abdomen: Soft, nontender, nondistended, bowel sounds active in all 4 quadrants, no abdominal guarding or Grant sign. Extremities: No peripheral or pedal edema noted. No swelling, redness or tenderness noted to bilateral lower legs. Neuro: Alert and oriented x3, no motor or sensory deficits Psychiatric: Calm, cooperative, without agitation or restlessness. LAB RESULTS (most recent) HEMATOLOGY Lab Results Component Value Date WBC 7.9 05/19/2025 HGB 13.0 05/19/2025 HCT 39.1 05/19/2025 MCV 83.2 05/19/2025 PLT 371 05/19/2025 CHEMISTRY Lab Results Component Value Date GLUCOSE 174 (H) 05/19/2025 NA 143 05/19/2025 K 3.4 (L) 05/19/2025 CO2 19 (L) 05/19/2025 CL 106 05/19/2025 BUN 12 05/19/2025 CREATININE 0.73 05/19/2025 EGFR 89 05/19/2025 CALCIUM 9.7 05/19/2025 MG 2.6 05/19/2025 ANIONGAP 18 (H) 05/19/2025 Radiology XR Chest 1 View Final Result FINDINGS/IMPRESSION: No pneumonia or pulmonary edema. Right diaphragmatic eventration. No pleural effusion or pneumothorax. Cardiac silhouette is normal in size. Bones are normal. Cholecystectomy clips. -------- FINAL REPORT -------- Dictated By: EZEKIEL TAN Dictated Date: 05/19/2025 16:15 ET Assigned Physician: EZEKIEL TAN Reviewed and Electronically Signed By: EZEKIEL TAN Signed Date: 05/19/2025 16:15 ET Workstation ID: [id number] Transcribed By: Self Edit Transcribed Date: 05/19/2025 16:15 ET ASSESSMENT & PLAN ACUTE MEDICAL ISSUES: Acute asthma exacerbation secondary to human rhinovirus/enterovirus - Patient presents with worsening shortness of breath, has been using her DuoNebs at home without improvement. -Chest x-ray: No pneumonia or pulmonary edema. Right diaphragmatic eventration. No pleural effusionor pneumothorax. Cardiac silhouette is normal in size. Bones are normal. Cholecystectomy clips. - Respiratory viral panel was obtained after patient was admitted, and returned positive for human rhinovirus/enterovirus - Add on methylprednisolone 125 mg once followed by 60 every 6. She was started on oral prednisone outpatient. Scheduled DuoNebs and albuterol as needed. Continue loratadine and Singulair as this maybe an allergic component as well. Patient was also prescribed Xolair - Patient reports that she has been maintained on Xolair for over a year however recently she reports there has been a change with how the medication is filled and since then she reports that she hasbeen experiencing asthma flares weekly - Head of bed to remain at 30 degrees - Aspiration precautions placed - Consider pulmonology consult Hypokalemia - Potassium 3.4. Will be replaced. Recheck in AM. CHRONIC MEDICAL ISSUES: Hypertension - Amlodipine continued with hold parameters Parkinson's disease - Carbidopa/levodopa continued. Fall precautions placed. Osteoarthritis - Patient prescribed piroxicam outpatient. Depression - Fluoxetine and mirtazapine continued GERD - Omeprazole continued. Vertigo - Fall precautions placed. Patient to ambulate with assistance only. Previously prescribed meclizine. OTHER: DVT Prophylaxis - Lovenox. CODE STATUS: FULL CODE HCP/emergency contact are patient's son Curt Waters, Secondary is daughter David Waters-Noam, Case and plan discussed with Dr. Juventino Nolan [1] Past Medical History: Diagnosis Date ??? Asthma DX:Asthma ??? Conjunctivitis 08/23/2012 DX:Conjunctivitis ??? Depressive disorder, not elsewhere classified DX:Depressive disorder, not elsewhere classified ??? Elevated BP without diagnosis of hypertension 05/07/2018 DX:Elevated BP without diagnosis of hypertension ??? Essential hypertension 06/12/2018 DX:Essential hypertension ??? Lump or mass in breast DX:Lump or mass in breast ??? Osteoporosis 03/15/2010 DX:Osteoporosis ??? Other and unspecified ovarian cyst DX:Other and unspecified ovarian cyst ??? Thyroid nodule 08/2016 DX:Thyroid nodule; COMMENT: need repeat bx in 3 mo ??? Unspecified asthma(493.90) DX:Unspecified asthma(493.90) [2] Past Surgical History: Procedure Laterality Date ??? BREAST BIOPSY Right sping of 2015 PROCEDURE: BX BREAST; PERC NEEDLE CORE W/IMAG GUID; COMMENT: b9 ??? BREAST BIOPSY Left 2017 PROCEDURE: BX BREAST; PERC NEEDLE CORE W/IMAG GUID; COMMENT: manager quality systems asp ??? BREAST SURGERY Bilateral PROCEDURE: GA UNLISTED PROCEDURE BREAST; COMMENT: needle aspiratons ??? COLONOSCOPY 02/15/08 PROCEDURE: HISTORICAL COLONOSCOPY; COMMENT: normal; repeat in ten years ??? HYSTERECTOMY PROCEDURE: HISTORICAL VAGINAL HYSTERECTOMY W/O BSO ??? OTHER SURGICAL HISTORY PROCEDURE: GA EXC CYST/ABERRANT BREAST TISSUE OPEN 1/> LESION; COMMENT: times two- benign lesions ??? OTHER SURGICAL HISTORY 03/30/2018 PROCEDURE: COLON CA SCRN NOT HI RSK IND; COMMENT: normal; repeat in 10 yrs ??? OVARIAN CYST REMOVAL PROCEDURE: GA OVARIAN CYSTECTOMY UNI/BI ??? TONSILLECTOMY PROCEDURE: HISTORICAL TONSILLECTOMY; COMMENT: adenoidectomy ??? TUBAL LIGATION PROCEDURE: HISTORICAL TUBAL LIGATION [3] No current facility-administered medications on file prior to encounter. No current outpatient medications on file prior to encounter. Cosigned by Juventino Nolan MD at 05/20/2025 11:11 AM EST Associated attestation - Juventino Nolan MD - 05/20/2025 11:11 AM EST This is a split/shared visit with Caryn Guzman NP. I personally performed the medical decision making (MDM) for the care of this patient on 05/19/25 as documented below I have personally seen and examined patient at bedside and I reviewed and interpreted his medical records, vital signs, labs and radiology data. I discussed case with Caryn Aguayo and I agree with physical exam assessment and plan as outlined in her note. This is a 70-year-old female with history of Parkinson's disease multinodular goiter currently presenting with shortness of breath. I have personally reviewed and interpreted her chest x-ray which does not show any pulmonary vascular congestion or infiltrates. There are no pleural effusions or pneumothorax. EKG shows normal sinus rhythm without any ST segment elevations or depressions and no QTc prolongation. According to the VBG there is no CO2 retention. D-dimer is less than 150 making the diagnosis of pulmonary embolus unlikely. I agree with admission to the hospital with acute asthma exacerbation she is very tight and wheezy this is secondary to rhinovirus. DuoNeb updrafts 4 times daily. Solu-Medrol every 6 hours. Oxygen support. Replete potassium for hypokalemia. Chronic management as below Juventino Nolan MD 05/20/25 11:09 AM EST documented in this encounter Miscellaneous Notes * ED Bed Hold Note - Deb Martínez RN - 05/19/2025 3:00 PM EST Bed: Expected date: Expected time: Means of arrival: Comments: Ems sob. X3 duonebs. RA spo2 appropriate. VSS documented in this encounter Plan of Treatment Not on file documented as of this encounter Procedures Procedure Name Priority Date/Time Associated Diagnosis Comments COMPLETE BLOOD COUNT Routine 05/20/2025 5:50 AM EST BASIC METABOLIC PANEL Routine 05/20/2025 5:50 AM EST ECG ANNOTATED 05/20/2025 RESPIRATORY VIRUS PANEL MOLECULAR STUDY STAT 05/19/2025 6:20 PM EST ECG 12-LEAD STAT 05/19/2025 3:53 PM EST XR CHEST 1 VIEW STAT 05/19/2025 3:35 PM EST TROPONIN I HIGH SENSITIVITY STAT 05/19/2025 3:30 PM EST CBC WITH AUTO DIFFERENTIAL STAT 05/19/2025 3:30 PM EST ACTIVATED PARTIAL THROMBOPLASTIN TIME STAT 05/19/2025 3:30 PM EST PROTHROMBIN TIME WITH INR STAT 05/19/2025 3:30 PM EST D-DIMER STAT 05/19/2025 3:30 PM EST CBC AND DIFFERENTIAL STAT 05/19/2025 3:30 PM EST B-TYPE NATRIURETIC PEPTIDE STAT 05/19/2025 3:30 PM EST MAGNESIUM STAT 05/19/2025 3:30 PM EST VENOUS BLOOD GAS STAT 05/19/2025 3:30 PM EST COMPREHENSIVE METABOLIC PANEL STAT 05/19/2025 3:30 PM EST GA CRITICAL CARE 30-74 MINUTES Routine 05/19/2025 2:57 PM EST documented in this encounter Results * Complete blood count (05/20/2025 5:50 AM EST) [facility] WBC 8.8 4.8 - 10.8 K/mcL LAB HEMETOLOGY METHOD 05/20/2025 6:37 AM [facility] RBC 4.30 3.80 - 4.80 M/mcL LAB HEMETOLOGY METHOD 05/20/2025 6:37 AM [facility] Hemoglobin 12.0 11.5 - 16.0 g/dL LAB HEMETOLOGY METHOD 05/20/2025 6:37 AM [facility] Hematocrit 35.9 35.0 - 47.0 % LAB HEMETOLOGY METHOD 05/20/2025 6:37 AM [facility] MCV 83.5 79.0 - 98.0 FL LAB HEMETOLOGY METHOD 05/20/2025 6:37 AM [facility] MCH 27.9 27.0 - 32.0 pcg LAB HEMETOLOGY METHOD 05/20/2025 6:37 AM [facility] MCHC 33.4 32.0 - 37.0 g/dL LAB HEMETOLOGY METHOD 05/20/2025 6:37 AM EST [facility] RDW 13.8 11.0 - 15.0 % LAB HEMETOLOGY METHOD 05/20/2025 6:37 AM [facility] Platelets 368 130 - 400 K/mcL LAB HEMETOLOGY METHOD 05/20/2025 6:37 AM [facility] MPV 10.0 7.0 - 11.0 FL LAB HEMETOLOGY METHOD 05/20/2025 6:37 AM EST [facility] NRBC 0.0 <1.0 % LAB HEMETOLOGY METHOD 05/20/2025 6:37 AM [facility] NRBC Absolute 0.00 <0.10 K/mcL LAB HEMETOLOGY METHOD 05/20/2025 6:37 AM [facility] Blood Venous blood specimen / Unknown Venipuncture / Unknown 05/20/2025 5:50 AM EST 05/20/2025 6:25 AM EST us Juventino Nolan MD LAB BLOOD ORDERABLES Final Res ult [facility] [address] [place] [address], [place] [phone] * (ABNORMAL) Basic metabolic panel (05/20/2025 5:50 AM EST) Sodium 142 133 - 145 mmol/L 05/20/2025 7:11 AM [facility] Potassium 4.6 3.5 - 5.5 mmol/L 05/20/2025 7:11 AM [facility] Chloride 106 96 - 110 mmol/L 05/20/2025 7:11 AM [facility] CO2 22 21 - 32 mmol/L 05/20/2025 7:11 AM [facility] Anion Gap 14(H) 3 - 11 05/20/2025 7:11 AM [facility] Glucose 125(H) 70 - 100 mg/dL 05/20/2025 7:11 AM [facility] BUN 14 5 - 25 mg/dL 05/20/2025 7:11 AM [facility] Creatinine 0.72 0.50 - 1.10 mg/dL 05/20/2025 7:11 AM [facility] eGFR 90 >=60 mL/min/1. 73m2 05/20/2025 7:11 AM [facility] Comment:Calculation based on the Chronic Kidney Disease Epidemiology Collaboration (CKD-EPI) equation refit without adjustment for race. BUN/Creatinine Ratio 19.4 05/20/2025 7:11 AM [facility] Calcium 9.5 8.5 - 10.5 mg/dL 05/20/2025 7:11 AM [facility] Blood Venous blood specimen / Unknown Venipuncture / Unknown 05/20/2025 5:50 AM EST 05/20/2025 6:25 AM EST Juventino Nolan MD LAB BLOOD ORDERABLES Final Res ult [facility] [address] [place] [address], * ECG-Annotated (05/20/2025) us Provider Onbase ECG ORDERABLES Final Result * (ABNORMAL) Respiratory virus panel molecular study (05/19/2025 6:20 PM EST) Adenovirus Detection by PCR Not Detected Not Detected LAB MICROBIOLOGY METHOD 05/19/2025 7:19 PM [facility] Influenza A PCR Not Detected Not Detected LAB MICROBIOLOGY METHOD 05/19/2025 7:19 PM [facility] Influenza B PCR Not Detected Not Detected LAB MICROBIOLOGY METHOD 05/19/2025 7:19 PM [facility] Coronavirus 229E Not Detected Not Detected LAB MICROBIOLOGY METHOD 05/19/2025 7:19 PM [facility] Coronavirus HKU1 Not Detected Not Detected LAB MICROBIOLOGY METHOD 05/19/2025 7:19 PM [facility] Coronavirus OC43 Not Detected Not Detected LAB MICROBIOLOGY METHOD 05/19/2025 7:19 PM [facility] Coronavirus NL63 Not Detected Not Detected LAB MICROBIOLOGY METHOD 05/19/2025 7:19 PM [facility] Parainfluenza Virus 1 Not Detected Not Detected LAB MICROBIOLOGY METHOD 05/19/2025 7:19 PM [facility] Parainfluenza Virus 2 Not Detected Not Detected LAB MICROBIOLOGY METHOD 05/19/2025 7:19 PM [facility] Parainfluenza Virus 3 Not Detected Not Detected LAB MICROBIOLOGY METHOD 05/19/2025 7:19 PM [facility] Parainfluenza Virus 4 Not Detected Not Detected LAB MICROBIOLOGY METHOD 05/19/2025 7:19 PM [facility] RSV PCR Not Detected Not Detected LAB MICROBIOLOGY METHOD 05/19/2025 7:19 PM [facility] Human Metapneumovirus A and B Not Detected Not Detected LAB MICROBIOLOGY METHOD 05/19/2025 7:19 PM [facility] Rhinovirus/Entero virus Detected(A ) Not Detected LAB MICROBIOLOGY METHOD 05/19/2025 7:19 PM [facility] Bordetella pertussis Not Detected Not Detected LAB MICROBIOLOGY METHOD 05/19/2025 7:19 PM [facility] Bordetella parapertussis Not Detected Not Detected LAB MICROBIOLOGY METHOD 05/19/2025 7:19 PM [facility] Mycoplasma pneumo by PCR Not Detected Not Detected LAB MICROBIOLOGY METHOD 05/19/2025 7:19 PM EST [facility] Chlamydia pneumoniae Not Detected Not Detected LAB MICROBIOLOGY METHOD 05/19/2025 7:19 PM EST [facility] SARS COV-2 Not Detected Not Detected LAB MICROBIOLOGY METHOD 05/19/2025 7:19 PM EST [facility] Swab Both anterior nares / Unknown Non-blood Collection / Unknown 05/19/2025 6:20 PM EST 05/19/2025 6:26 PM EST Narrative [facility] - 05/19/2025 7:19 PM EST Testing was performed using the [employer] Respiratory Pathogen PCR Assay. All results must be correlated with the clinical findings. Results should not be used as the sole basis for diagnosis. False Negative results may occur from the presence of sequence variants in the region targeted by the assay or the presence of inhibitors. Results may be affected by concurrent antiviral/antimicrobial therapy or levels of organisms that are below the limit of detection. us Caryn Guzman NP LAB MICROBIOLOGY - GENER AL ORDERABLES Final Result [facility] [address] [place] [address], * 12-Lead ECG (05/19/2025 3:53 PM EST) Ventricular Rate ECG 99 BPM GEMUSE Atrial Rate 99 BPM GEMUSE P-R Interval 136 ms GEMUSE QRS Duration 80 ms GEMUSE Q-T Interval 330 ms GEMUSE QTc 423 ms GEMUSE P Wave [place] 39 degrees GEMUSE R [place] -10 degrees GEMUSE T [place] 10 degrees GEMUSE ECG Interpretation Normal sinus rhythm Nonspecific ST and T wave abnormality Abnormal ECG No previous ECGs available Confirmed by Jennifer ALSTON JOHN ([id number]) on 05/20/2025 5:06:11 PM GEMUSE 05/19/2025 3:53 PM EST 05/20/2025 5:06 PM EST Wesley Mercedes MD ECG ORDERABLES Final Result GEMUSE * XR Chest 1 View (05/19/2025 3:35 PM EST) Anatomical Region Laterality Modality Body Radiographic Kathya ging 05/19/2025 4:15 PM EST Impressions 05/19/2025 4:15 PM EST FINDINGS/IMPRESSION: No pneumonia or pulmonary edema. Right diaphragmatic eventration. No pleural effusion or pneumothorax. Cardiac silhouette is normal in size. Bones are normal. Cholecystectomy clips. -------- FINAL REPORT -------- Dictated By: EZEKIEL TAN Dictated Date: 05/19/2025 16:15 ET Assigned Physician: EZEKIEL TAN Reviewed and Electronically Signed By: EZEKIEL TAN Signed Date: 05/19/2025 16:15 ET Workstation ID: [id number] Transcribed By: Self Edit Transcribed Date: 05/19/2025 16:15 ET Narrative 05/19/2025 4:15 PM EST XR CHEST 1 VIEW INDICATION: Shortness of breath TECHNIQUE: XR CHEST 1 VIEW COMPARISON: No priors available. Procedure Note Ezekiel Tan MD - 05/19/2025 XR CHEST 1 VIEW INDICATION: Shortness of breath TECHNIQUE: XR CHEST 1 VIEW COMPARISON: No priors available. IMPRESSION: FINDINGS/IMPRESSION: No pneumonia or pulmonary edema. Right diaphragmaticeventration. No pleural effusion or pneumothorax. Cardiac silhouette isnormal in size. Bones are normal. Cholecystectomy clips. -------- FINAL REPORT -------- Dictated By: EZEKIEL TAN Dictated Date: 05/19/2025 16:15 ET Assigned Physician: EZEKIEL TAN Reviewed and Electronically Signed By: EZEKIEL TAN Signed Date: 05/19/2025 16:15 ET Workstation ID: [id number] Transcribed By: Self Edit Transcribed Date: 05/19/2025 16:15 ET Wesley Mercedes MD IMG XR PROCEDURES Final Result * D-Dimer (Quantitative) (05/19/2025 3:30 PM EST) [facility] D-Dimer, Quant (D-DU) <150 <=230 ng/mL DDU LAB COAGULATION METHOD 05/19/2025 4:19 PM [facility] Blood Venous blood specimen / Unknown Venipuncture / Unknown 05/19/2025 3:30 PM EST 05/19/2025 3:55 PM EST [facility] - 05/19/2025 4:19 PM EST D-Dimer <230 ng/mL (D-Dimer units) is the threshold for exclusion of DVT/PE. D-Dimer may be elevated in: Critically ill, severely infected, trauma patients, DIC, acute CVA, acute LA, unstable angina, AF, old age, , and smoking. D-Dimer may be decreased with: Initiation of heparin therapy and oral anticoagulants. Wesley Mercedes MD LAB BLOOD ORDERABLES Final Resul t [facility] [address] [place] [address], [place] [phone] * (ABNORMAL) CBC auto differential (05/19/2025 3:30 PM EST) [facility] WBC 7.9 4.8 - 10.8 K/mcL LAB HEMETOLOGY METHOD 05/19/2025 4:01 PM [facility] RBC 4.70 3.80 - 4.80 M/mcL LAB HEMETOLOGY METHOD 05/19/2025 4:01 PM [facility] Hemoglobin 13.0 11.5 - 16.0 g/dL LAB HEMETOLOGY METHOD 05/19/2025 4:01 PM [facility] Hematocrit 39.1 35.0 - 47.0 % LAB HEMETOLOGY METHOD 05/19/2025 4:01 PM [facility] MCV 83.2 79.0 - 98.0 FL LAB HEMETOLOGY METHOD 05/19/2025 4:01 PM [facility] MCH 27.7 27.0 - 32.0 pcg LAB HEMETOLOGY METHOD 05/19/2025 4:01 PM [facility] MCHC 33.2 32.0 - 37.0 g/dL LAB HEMETOLOGY METHOD 05/19/2025 4:01 PM [facility] RDW 13.4 11.0 - 15.0 % LAB HEMETOLOGY METHOD 05/19/2025 4:01 PM [facility] Platelets 371 130 - 400 K/mcL LAB HEMETOLOGY METHOD 05/19/2025 4:01 PM [facility] MPV 9.8 7.0 - 11.0 FL LAB HEMETOLOGY METHOD 05/19/2025 4:01 PM [facility] NRBC 0.0 <1.0 % LAB HEMETOLOGY METHOD 05/19/2025 4:01 PM [facility] NRBC Absolute 0.00 <0.10 K/mcL LAB HEMETOLOGY METHOD 05/19/2025 4:01 PM [facility] Neutrophils Relative 78.0 % LAB HEMETOLOGY METHOD 05/19/2025 4:01 PM [facility] Lymphocytes Relative 20.4 % LAB HEMETOLOGY METHOD 05/19/2025 4:01 PM [facility] Monocytes Relative 1.0 % LAB HEMETOLOGY METHOD 05/19/2025 4:01 PM [facility] Eosinophils Relative 0.0 % LAB HEMETOLOGY METHOD 05/19/2025 4:01 PM [facility] Basophils Relative 0.1 % LAB HEMETOLOGY METHOD 05/19/2025 4:01 PM [facility] Immature Granulocytes Relative 0.5 % LAB HEMETOLOGY METHOD 05/19/2025 4:01 PM [facility] Neutrophils Absolute 6.19 1.50 - 7.00 K/mcL LAB HEMETOLOGY METHOD 05/19/2025 4:01 PM EST [facility] Lymphocytes Absolute 1.62 1.00 - 5.00 K/mcL LAB HEMETOLOGY METHOD 05/19/2025 4:01 PM [facility] Monocytes Absolute 0.08(L) 0.20 - 1.00 K/[facility] LAB HEMETOLOGY METHOD 05/19/2025 4:01 PM EST [facility] Eosinophils Absolute 0.00 0.00 - 0.50 K/[facility] LAB HEMETOLOGY METHOD 05/19/2025 4:01 PM [facility] Basophils Absolute 0.01 0.00 - 0.20 K/mcL LAB HEMETOLOGY METHOD 05/19/2025 4:01 PM [facility] Immature Granulocytes Absolute 0.04(H) 0.00 - 0.03 K/[facility] LAB HEMETOLOGY METHOD 05/19/2025 4:01 PM [facility] Blood Venous blood specimen / Unknown Venipuncture / Unknown 05/19/2025 3:30 PM EST 05/19/2025 3:55 PM EST us Wesley Mercedes MD LAB BLOOD ORDERABLES Final Resul t [facility] [address] [place] [address], * (ABNORMAL) Venous blood gas (05/19/2025 3:30 PM EST) pH, Damir 7.44(H) 7.32 - 7.42 pH 05/19/2025 3:58 PM [facility] pCO2, Damir 28(L) 41 - 51 mmHg 05/19/2025 3:58 PM [facility] pO2, Damir 42(H) 25 - 40 mmHg 05/19/2025 3:58 PM EST [facility] HCO3, Venous 21.4(L) 22.0 - 26.0 mmol/L 05/19/2025 3:58 PM EST [facility] O2 Sat, Damir 77.6 % 05/19/2025 3:58 PM EST [facility] Base Excess, Damir -3.8(L) -2.0 - 2.0 mmol/L 05/19/2025 3:58 PM EST [facility] Blood Venous blood specimen / Unknown Venipuncture / Unknown 05/19/2025 3:30 PM EST 05/19/2025 3:54 PM EST us Wesley Mercedes MD LAB BLOOD ORDERABLES Final Resul t Performing Organization Address [facility]/ZIP Co de Phone Number [facility] [address] [place] [address], [place] [phone] * APTT (05/19/2025 3:30 PM EST) aPTT 30.6 24.1 - 39.3 sec LAB COAGULATION METHOD 05/19/2025 4:12 PM EST [facility] Blood Venous blood specimen / Unknown Venipuncture / Unknown 05/19/2025 3:30 PM EST 05/19/2025 3:55 PM EST us Wesley Mercedes MD LAB BLOOD ORDERABLES Final Resul t [facility] [address] [place] [address], [place] [phone] * Protime-INR (05/19/2025 3:30 PM EST) Protime 10.8 10.6 - 13.9 sec LAB COAGULATION METHOD 05/19/2025 4:12 PM EST [facility] INR 0.9 LAB COAGULATION METHOD 05/19/2025 4:12 PM EST [facility] Blood Venous blood specimen / Unknown Venipuncture / Unknown 05/19/2025 3:30 PM EST 05/19/2025 3:55 PM EST us Wesley Mercedes MD LAB BLOOD ORDERABLES Final Resul t [facility] [address] [place] [address], [place] [phone] * Troponin I High Sensitivity (05/19/2025 3:30 PM EST) Pathologist [facility] High Sensitivity Troponin I <3 <=34 ng/L 05/19/2025 4:23 PM EST [facility] Blood Venous blood specimen / Unknown Venipuncture / Unknown 05/19/2025 3:30 PM EST 05/19/2025 3:55 PM EST us Wesley Mercedes MD LAB BLOOD ORDERABLES Final Resul t Performing Organization Address City/[facility]/ZIP Co de Phone Number [facility] [address] [place] [address], [place] [phone] * Magnesium (05/19/2025 3:30 PM EST) [facility] Magnesium 2.6 1.9 - 2.6 mg/dL 05/19/2025 4:49 PM EST [facility] Blood Venous blood specimen / Unknown Venipuncture / Unknown 05/19/2025 3:30 PM EST 05/19/2025 3:55 PM EST us Wesley Mercedes MD LAB BLOOD ORDERABLES Final Resul t [facility] [address] [place] [address], [place] [phone] * (ABNORMAL) Comprehensive Metabolic Panel (CMP) (05/19/2025 3:30 PM EST) Sodium 143 133 - 145 mmol/L 05/19/2025 4:52 PM [facility] Potassium 3.4(L) 3.5 - 5.5 mmol/L 05/19/2025 4:52 PM [facility] Chloride 106 96 - 110 mmol/L 05/19/2025 4:52 PM [facility] CO2 19(L) 21 - 32 mmol/L 05/19/2025 4:52 PM [facility] Anion Gap 18(H) 3 - 11 05/19/2025 4:52 PM [facility] Glucose 174(H) 70 - 100 mg/dL 05/19/2025 4:52 PM [facility] BUN 12 5 - 25 mg/dL 05/19/2025 4:52 PM [facility] Creatinine 0.73 0.50 - 1.10 mg/dL 05/19/2025 4:52 PM [facility] eGFR 89 >=60 mL/min/1. 73m2 05/19/2025 4:52 PM [facility] Comment:Calculation based on the Chronic Kidney Disease Epidemiology Collaboration (CKD-EPI) equation refit without adjustment for race. BUN/Creatinine Ratio 16.4 05/19/2025 4:52 PM [facility] Calcium 9.7 8.5 - 10.5 mg/dL 05/19/2025 4:52 PM [facility] AST (SGOT) 18 10 - 42 unit/L 05/19/2025 4:52 PM [facility] ALT (SGPT) 20 10 - 60 unit/L 05/19/2025 4:52 PM [facility] Alkaline Phosphatase 103 42 - 121 unit/L 05/19/2025 4:52 PM [facility] Total Protein 7.3 6.0 - 8.0 g/dL 05/19/2025 4:52 PM EST [facility] Albumin 4.6 3.2 - 5.0 g/dL 05/19/2025 4:52 PM EST [facility] Total Bilirubin 0.4 0.0 - 1.4 mg/dL 05/19/2025 4:52 PM EST [facility] Blood Venous blood specimen / Unknown Venipuncture / Unknown 05/19/2025 3:30 PM EST 05/19/2025 3:55 PM EST us Wesley Mercedes MD LAB BLOOD ORDERABLES Final Resul t Performing Organization Address [facility] Co de Phone Number [facility] [address] [place] [address], [place] [phone] * B-Type Natriuretic Peptide (BNP) (05/19/2025 3:30 PM EST) BNP 37 <=100 pcg/mL 05/19/2025 4:22 PM EST [facility] Blood Venous blood specimen / Unknown Venipuncture / Unknown 05/19/2025 3:30 PM EST 05/19/2025 3:55 PM EST Narrative [facility] - 05/19/2025 4:22 PM EST Over the counter supplements containing high doses of biotin may interfere with this assay. If interference is suspected, patients shoud be retested after refraining from biotin supplements for 72 hours. us Wesley Mercedes MD LAB BLOOD ORDERABLES Final Resul t [facility] [address] [place] [address], [place] [phone] * [facility] CRITICAL CARE 30-74 MINUTES (05/19/2025 2:57 PM EST) Narrative Wesley Mercedes MD - 05/19/2025 2:57 PM EST Wesley Mercedes MD 05/20/2025 7:32 AM Critical Care Performed by: Wesley Mercedes MD Authorized by: Wesley Mercedes MD Critical care provider statement: Critical care time (minutes): 35 Total face to face critical care time (minutes): 35 Critical care time was exclusive of: Separately billable procedures and treating other patients Critical care was necessary to treat or prevent imminent or life-threatening deterioration of the following conditions: Respiratory failure Critical care was time spent personally by me on the following activities: Development of treatment plan with patient or surrogate, discussions with consultants, evaluation of patient's response to treatment, ordering and review of laboratory studies, ordering and review of radiographic studies, re-evaluation of patient's condition, review of old charts, ordering and performing treatments and interventions and examination of patient I assumed direction of critical care for this patient from another provider in my specialty: no Care discussed with: admitting provider Comments: Asthma exacerbation requiring greater than 3 DuoNeb treatments, IV methylprednisone and IV magnesium today to prevent further catastrophic decompensation resulting in respiratory failure. Wesley Mercedes MD IN CLINIC/BEDSIDE ORDERABLES Fin al Result documented in this encounter Visit Diagnoses Diagnosis Asthma- Primary Unspecified asthma Exacerbation of asthma, unspecified asthma severity, unspecified whether persistent Exacerbation of asthma, unspecified asthma severity, unspecified whether persistent documented in this encounter Admitting Diagnoses Diagnosis Asthma Unspecified asthma Exacerbation of asthma, unspecified asthma severity, unspecified whether persistent documented in this encounter Administered Medications Inactive Administered Medications - up to 3 most recent administrations Medication Order MAR Action Action Date Dose Rate Site albuterol 2.5 mg /3 mL (0.083 %) nebulizer solution 2.5 mg 2.5 mg, nebulization, Every 4 hours PRN, wheezing, shortness of breath, Starting on Mon05/19/25 at 1814 Given 05/21/2025 5:05 AM EST 2.5 mg calcium carbonate-vitamin D 600 mg-10 mcg (400 unit) per tablet 1 tablet 1 tablet, oral, 2 times daily, First dose on Mon05/19/25 at 2100 Given 05/21/2025 8:17 AM EST 1 tablet Given 05/20/2025 9:16 PM EST 1 tablet Given 05/20/2025 8:19 AM EST 1 tablet carbidopa-levodopa (SINEMET) 25-100 mg per tablet 1 tablet 1 tablet, oral, 3 times daily, First dose on Mon05/19/25 at 2100, Tube feeds or high calorie meals may interact with carbidopa/levodopa. Monitor patient for Parkinson's disease symptom control and notify provider to make adjustments to medication dosage and/or nutritional intake (consider bolus tube feeds, holding tube feeds two hours before and after administration, decreasing protein intake) if loss of symptom control is noted. Given 05/21/2025 8:17 AM EST 1 table t Given 05/20/2025 9:16 PM EST 1 tablet Given 05/20/2025 2:01 PM EST 1 tablet FLUoxetine (PROzac) capsule 20 mg 20 mg, oral, 2 times daily, First dose on Mon05/19/25 at 2100 Given 05/21/2025 8:16 AM EST 20 mg Given 05/20/2025 9:16 PM EST 20 mg Given 05/20/2025 8:20 AM EST 20 mg guaiFENesin (MUCINEX) 12 hr tablet 600 mg 600 mg, oral, Every 12 hours scheduled, First dose on Mon05/19/25 at 2100, Administer with plenty of fluids to ensure proper action. Do not crush, chew, or split. Given 05/21/2025 8:17 AM EST 600 mg Given 05/20/2025 9:16 PM EST 600 mg Given 05/20/2025 8:19 AM EST 600 mg ipratropium-albuteroL (DUONEB) 0.5-2.5 mg/3 mL nebulizer solution 3 mL 3 mL, nebulization, Once, On Mon05/19/25 at 1516, For 1 dose Given 05/19/2025 3:37 PM EST 3 mL ipratropium-albuteroL (DUONEB) 0.5-2.5 mg/3 mL nebulizer solution 3 mL 3 mL, nebulization, Once, On Mon05/19/25 at 1659, For 1 dose Given 05/19/2025 5:07 PM EST 3 mL ipratropium-albuteroL (DUONEB) 0.5-2.5 mg/3 mL nebulizer solution 3 mL 3 mL, nebulization, 4 times daily, First dose on Mon05/19/25 at 2000 Given 05/21/2025 11:16 AM EST 3 mL Given 05/21/2025 7:35 AM EST 3 mL Given 05/20/2025 8:58 PM EST 3 mL loratadine (CLARITIN) tablet 10 mg 10 mg, oral, Daily, First dose on Mon05/20/25 at 0900 Given 05/21/2025 8:17 AM EST 10 mg Given 05/20/2025 8:20 AM EST 10 mg methylPREDNISolone sodium succ (SOLU-Medrol) injection 125 mg 125 mg, intravenous, Once, On Mon05/19/25 at 1815, For 1 dose, Reconstitute each 125 mg vial with 2 mL sterile water for injection to a concentration of 62.5 mg/mL. Given 05/19/2025 6:[address] 125 mg methylPREDNISolone sodium succ (SOLU-Medrol) injection 60 mg 60 mg, intravenous, Every 6 hours scheduled, First dose on Mon05/20/25 at 0000, Reconstitute each 125 mg vial with 2 mL sterile water for injection to a concentration of 62.5 mg/mL. Given 05/21/2025 12:41 PM EST 60 mg Given 05/21/2025 5:18 AM EST 60 mg Given 05/21/2025 12:34 AM EST 60 mg mirtazapine (REMERON) tablet 15 mg 15 mg, oral, Nightly, First dose on Mon05/19/25 at 2100 Given 05/20/2025 9:16 PM EST 15 mg Given 05/19/2025 8:24 PM EST 15 mg montelukast (SINGULAIR) tablet 10 mg 10 mg, oral, Daily, First dose on Mon05/20/25 at 0900 Given 05/21/2025 8:16 AM EST 10 mg Given 05/20/2025 8:19 AM EST 10 mg pantoprazole (PROTONIX) EC tablet 40 mg 40 mg, oral, Every morning before breakfast, First dose on Mon05/20/25 at 0700, Do not crush, chew, or split. Given 05/21/2025 5:18 AM EST 40 mg Given 05/20/2025 5:59 AM EST 40 mg potassium chloride 10 mEq/100 mL IVPB 10 mEq 10 mEq, intravenous, at 100 mL/hr, Administer over 1 Hours, Every 1 hour, First dose on Mon05/19/25 at 1830, For 4 doses New Bag 05/19/2025 10:17 PM EST 10 mEq 100 mL/hr New Bag 05/19/2025 8:24 PM EST 10 mEq 100 mL/hr New Bag 05/19/2025 6:52 PM EST 10 mEq 100 mL/hr documented in this encounter Historical Medications * This list may reflect changes made after this encounter. predniSONE (DELTASONE) 10 mg tablet Take 1 tablet (10 mg total) by mouth 2 (two) times a day. 05/16/2025 piroxicam (FELDENE) 20 mg capsule Take 1 capsule (20 mg total) by mouth 1 (one) time each day. 04/15/2025 omeprazole (PriLOSEC) [address] capsule Take 1 capsule (40 mg total) by mouth 1 (one) time each day. 03/14/2025 Xolair 150 mg/mL syringe subcutaneous syringe Inject 1 mL (150 mg total) under the skin every 28 (twenty-eight) days. 08/19/2022 montelukast (SINGULAIR) 10 mg tablet Take 1 tablet (10 mg total) by mouth 1 (one) time each day. mirtazapine (REMERON) 15 mg tablet Take 1 tablet (15 mg total) by mouth at bedtime. 03/04/2025 loratadine (CLARITIN) 10 mg tablet Take 1 tablet (10 mg total) by mouth daily. 07/13/2021 FLUoxetine (PROzac) 20 mg capsule Take 1 capsule (20 mg total) by mouth 2 (two) times a day. 08/25/2022 carbidopa-levodopa (SINEMET) 25-100 mg per tablet Take 1 tablet by mouth 3 (three) times a day. calcium carbonate-vitamin D 600 mg-10 mcg (400 unit) per tablet Take 1 tablet by mouth 2 (two) times a day. 04/17/2025 albuterol HFA (PROAIR HFA ; PROVENTIL HFA ; VENTOLIN HFA) 90 mcg/actuation inhaler Inhale 2 puffs by mouth every 4 (four) hours if needed for wheezing or shortness of breath. 10/23/2024 added in this encounter Active and Recently Administered Medications Times are shown in EST. Scheduled Medication Order 05/19/2025 05/20/2025 05/21/2025 calcium carbonate-vitamin D 600 mg-10 mcg (400 unit) per tablet 1 tablet 1 tablet, oral, 2 times daily, First dose on Mon05/19/25 at 2100 2023 (Given - Provider: Aysha Sanchez RN) 08 (Given - Provider: Peggy Patel RN)2115 (Given - Provider: Edenilson Ortega RN) 0817 (Given - Provider: Chelsea Carrera, VITA) carbidopa-levodopa (SINEMET) 25-100 mg per tablet 1 tablet 1 tablet, oral, 3 times daily, First dose on Mon05/19/25 at 2100, Tube feeds or high calorie meals may interact with carbidopa/levodopa. Monitor patient for Parkinson's disease symptom control and notify provider to make adjustments to medication dosage and/or nutritional intake (consider bolus tube feeds, holding tube feeds two hours before and after administration, decreasing protein intake) if loss of symptom control is noted. 2023 (Given - Provider: Aysha Sanchez RN) 08 (Given - Provider: Peggy Patel RN)140 (Given - Provider: Fay Mora RN)2115 (Given - Provider: Edenilson Ortega RN) 0817 (Given - Provider: Chelsea Carrera RN)1400 (Canceled Entry - Provider: Automatic Discharge Provider - Comment: Automatically canceled at discontinue of medication order) FLUoxetine (PROzac) capsule 20 mg 20 mg, oral, 2 times daily, First dose on Mon05/19/25 at 2100 2023 (Given - Provider: Aysha Sanchez RN) 08 (Given - Provider: Peggy Patel RN)2115 (Given - Provider: Edenilson Ortega RN) 0816 (Given - Provider: Chelsea Carrera, VITA) guaiFENesin (MUCINEX) 12 hr tablet 600 mg 600 mg, oral, Every 12 hours scheduled, First dose on Mon05/19/25 at 2100, Administer with plenty of fluids to ensure proper action. Do not crush, chew, or split. 2023 (Given - Provider: Aysha Sanchez RN) 08 (Given - Provider: Peggy Patel RN)2115 (Given - Provider: Edenilson Ortega RN) 0817 (Given - Provider: Chelsea Carrera, VITA) ipratropium-albuteroL (DUONEB) 0.5-2.5 mg/3 mL nebulizer solution 3 mL (COMPLETED) 3 mL, nebulization, Once, On Mon05/19/25 at 1516, For 1 dose 1537 (Given - Provider: Kevin Parker, VITA) ipratropium-albuteroL (DUONEB) 0.5-2.5 mg/3 mL nebulizer solution 3 mL (COMPLETED) 3 mL, nebulization, Once, On Mon05/19/25 at 1659, For 1 dose 1707 (Given - Provider: Kevin Parker RN) ipratropium-albuteroL (DUONEB) 0.5-2.5 mg/3 mL nebulizer solution 3 mL 3 mL, nebulization, 4 times daily, First dose on Mon05/19/25 at 2000 1950 (Given - Provider: Tatiana Nuñez) 0717 (Given - Provider: Maxine Pabon, SEAM FELLER)1109 (Given - Provider: Maxine Pabon, LISA)1631 (Given - Provider: April Collins, SEAM FELLER)2058 (Given - Provider: Winsome Levy) 0735 (Given - Provider: Johanna Cervantes, SEAM FELLER)1116 (Given - Provider: Johanna Cervantes RRT) loratadine (CLARITIN) tablet 10 mg 10 mg, oral, Daily, First dose on Mon05/20/25 at 0900 0820 (Given - Provider: Peggy Patel RN) 0817 (Given - Provider: Chelsea Carrera, VITA) methylPREDNISolone sodium succ (SOLU-Medrol) injection 125 mg (COMPLETED) 125 mg, intravenous, Once, On Mon05/19/25 at 1815, For 1 dose, Reconstitute each 125 mg vial with 2 mL sterile water for injection to a concentration of 62.5 mg/mL. 184 (Given - Provider: Lalito Sierra RN) methylPREDNISolone sodium succ (SOLU-Medrol) injection 60 mg 60 mg, intravenous, Every 6 hours scheduled, First dose on Mon05/20/25 at 0000, Reconstitute each 125 mg vial with 2 mL sterile water for injection to a concentration of 62.5 mg/mL. 2334 (Given - Provider: Aysha Sanchez RN) 0558 (Given - Provider: Aysha Sanchez RN)1240 (Given - Provider: Fay Mora RN)1804 (Given - Provider: Fay Mora RN) 0034 (Given - Provider: Edenilson Ortega RN)0518 (Given - Provider: Edenilson Ortega RN)1241 (Given - Provider: Chelsea Carrera, VITA) mirtazapine (REMERON) tablet 15 mg 15 mg, oral, Nightly, First dose on Mon05/19/25 at 2100 2023 (Given - Provider: Aysha Sanchez RN) 211 (Given - Provider: Edenilson Ortega, VITA) montelukast (SINGULAIR) tablet 10 mg 10 mg, oral, Daily, First dose on Mon05/20/25 at 0900 0819 (Given - Provider: Peggy Patel RN) 0816 (Given - Provider: Chelsea Carrera, VITA) pantoprazole (PROTONIX) EC tablet 40 mg 40 mg, oral, Every morning before breakfast, First dose on Mon05/20/25 at 0700, Do not crush, chew, or split. 0559 (Given - Provider: Aysha Sanchez RN) 0518 (Given - Provider: Edenilson Ortega RN) potassium chloride 10 mEq/100 mL IVPB 10 mEq (COMPLETED) 10 mEq, intravenous, at 100 mL/hr, Administer over 1 Hours, Every 1 hour, First dose on Mon05/19/25 at 1830, For 4 doses 184 (New Bag - Provider: Lalito Sierra RN)1851 (New Bag - Provider: Lalito Sierra RN)1951 (Stopped - Provider: Aysha Sanchez RN)2023 (New Bag - Provider: Aysha Sanchez RN)2123 (Stopped - Provider: Aysha Sanchez RN)2216 (New Bag - Provider: Aysha Sanchez RN)231 (Stopped - Provider: Aysha Sanchez RN) PRN Medication Order 05/19/2025 05/20/2025 05/21/2025 albuterol 2.5 mg /3 mL (0.083 %) nebulizer solution 2.5 mg 2.5 mg, nebulization, Every 4 hours PRN, wheezing, shortness of breath, Starting on 05/19/25 at 1814 0505 (Given - Provid er: Radha Sanchez, SEAM FELLER) documented in this encounter Orders Diet Count Last Ordered Date First Orde red Date ADULT DISCHARGE DIET 1 05/21/2025 Nursing Count Last Ordered Date First Orde red Date ACTIVITY 1 05/21/2025 FOLLOW UP PRIMARY PHYSICIAN 1 05/21/2025 Admission Count Last Ordered Date First Orde red Date ADMIT TO INPATIENT 1 05/20/2025 INITIATE OBSERVATION STATUS 1 05/19/2025 Transfer Count Last Ordered Date First Orde red Date TRANSFER PATIENT TO NEW UNIT 2 05/20/2025 ED TO FLOOR BED REQUEST 1 05/19/2025 Discharge Count Last Ordered Date First Orde red Date DISCHARGE PATIENT 1 05/21/2025 documented in this encounter Additional Health Concerns Infection Onset Date Last Indicated Resolved Time Respiratory Rule-Out 05/19/2025 05/19/2025 025 7:19 PM EST COVID-19 Rule-Out 05/19/2025 05/19/2025 05/19/2025 7:19 PM EST Enterovirus 05/19/2025 05/19/2025 Rhinovirus 05/19/2025 05/19/2025 documented as of this encounter 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
[2025-05-26] VITALS (13 sets, daily range): BP systolic 111–138; BP diastolic 58–93; PULSE 84–107; RESP 14–30; TEMP 36.3–37.1; O2SAT 93–99; BMI 29.5; BMI 29.6
--- NOTE | ~2025-05-26 | XR_ITS ---
EXAMINATION: XR CHEST CLINICAL INFORMATION: dyspnea COMPARISON: X-ray 07/17/2023 TECHNIQUE: 2 views of the chest were obtained. FINDINGS: The cardiomediastinal silhouette is within normal limits. The lungs are well expanded. There is no focal consolidation, edema, or effusion. No pneumothorax. Mild thoracic spine spondylosis. Surgical clips in the right upper quadrant... XR/XR chest 2V IMPRESSION: No acute pulmonary findings Electronically signed by: Hector Zaldivar MD 05/26/2025 10:42 AM [facility]
--- NOTE | 2025-05-26 10:23 | ED.GENADULT ---
HPI - General Adult General Chief complaint: Upper Respiratory Symptoms Stated complaint: asthma Time Seen by Provider: 05/26/25 11:11 Source: patient and RN notes reviewed Mode of arrival: ambulatory Limitations: no limitations History of Present Illness ED Provider: Oma Aguilar PA-C HPI narrative: This is a 70-year-old female, with a past medical history of depression, asthma, hypertension, and Parkinson's disease, who presents emergency department with concerns of shortness of breath. Patient reports that for approximately 2 weeks she has had increased shortness for breath and wheezing. She states that she was seen at [facility] where she was admitted for 3 days due to asthma exacerbation. She states that she continues to be on steroids however states that her symptoms have not improved. She states that the day after she was discharged from [facility] on 05/22, she started to feel as though her asthma was worsening. 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 States that she is taking prednisone 20 mg daily which she has been compliant with, last dose was this morning. She has been using her updrafts at home as well as taking her prednisone which has provided her with minimal relief. She denies any chest pain, fevers, chills, abdominal pain, nausea, vomiting or diarrhea. No other complaints or concerns at this time. MD complaint: Shortness of breath Onset (ago): week(s) Relieving factors: none Exacerbating factors: none Associated symptoms: shortness of breath Related Data Home Medications ?Medication ?Instructions ?Recorded ?Confirmed amlodipine 10 mg tablet 10 mg PO DAILY 07/21/23 fluticasone propionate 115 inhalation 07/21/23 mcg-salmeterol 21 mcg/actuation HFA inhaler calcium 600 mg (as 1 tab PO BID osteoporosis 05/26/25 carbonate)-vitamin D3 10 mcg (400 unit) tablet carbidopa 25 mg-levodopa 100 mg 1 tab PO TID 05/26/25 tablet fluoxetine 20 mg capsule 40 mg PO DAILY 05/26/25 loratadine 10 mg tablet 10 mg PO DAILY PRN Allergy Symptoms 05/26/25 mirtazapine 15 mg tablet 15 mg PO BEDTIME 05/26/25 montelukast 10 mg tablet 10 mg PO DAILY 05/26/25 omalizumab 150 mg/mL subcutaneous 150 mg subcut QMONTH 05/26/25 syringe (Xolair) omeprazole 40 mg capsule,delayed 40 mg PO QAM 05/26/25 release piroxicam 20 mg capsule 20 mg PO DAILY PRN low back pain 05/26/25 Previous Rx's ?Medication ?Instructions ?Recorded ibuprofen 600 mg tablet 600 mg PO TID PRN fever or pain 05/23/23 #14 tabs cyclobenzaprine 10 mg tablet 10 mg PO BEDTIME PRN muscle spasm 07/21/23 #14 tabs lidocaine 4 % topical patch 1 patch topical DAILY PRN pain #15 07/21/23 (AsperFlex (lidocaine)) ea naproxen 500 mg tablet 500 mg PO BID PRN pain #14 tabs 07/21/23 Allergies Allergy/AdvReac Type Severity Reaction Status Date / Time From Lipitor Allergy Mild MYALGIAS Uncoded 05/26/25 10:25 Review of Systems Review of Systems: Constitutional : No Fever, No Chills ENT/Mouth : No sore throat, No Rhinorrhea Eyes: No Eye Pain, No Swelling, No Redness Cardiovascular : No Chest Pain, +SOB Respiratory : No Cough, No Sputum Gastrointestinal : No Nausea, No Vomiting, No Diarrhea, No abdominal Pain Genitourinary : No Dysuria, No Hematuria Musculoskeletal : No joint pain, No Myalgias, No Joint Swelling Skin : No Skin Lesions Neuro : No Weakness, No Numbness, No Headache All other systems reviewed and are negative Yes all other systems are reviewed and are negative Constitutional: Constitutional: Reports as per [facility] Past Medical History Attestation statement: The following information was validated with the patient. Medical History Depression Asthma Hypertension Parkinsons disease Social History Social History Patient Tobacco Use Status: Never used Tobacco Advance Directives: No Advance Directives Information Provided: Yes Do you have a plan to hurt others: No Plan Physical Exam ED Vital Signs: Vital Signs - 24 hr 05/26/25 10:23 05/26/25 10:49 05/26/25 11:10 Temperature 98 F Pulse Rate 107 H 96 99 Respiratory Rate 24 H 26 H 30 H Blood Pressure 138/93 H 125/77 Pulse Oximetry 97 97 Oxygen Delivery Method Room Air Aerosol Mask 05/26/25 11:26 05/26/25 12:45 Temperature 98.0 F Pulse Rate 102 H 92 Respiratory Rate 24 H 14 Blood Pressure 114/58 L Pulse Oximetry 97 Oxygen Delivery Method Room Air BMI result Body Mass Index 29.5 Const Other: On arrival, patient very shaky, speaking in 2 to 3 word sentences, anxious appearing General: anxious Orientation/consciousness: patient oriented x3 Limitations: no limitations HENMT Head: Yes normal to inspection, Yes normocephalic and Yes atraumatic Ears: hearing grossly normal bilaterally General nose exam: Normal external nose present Face and sinus: Yes normal facial exam Mouth: Normal oral and palatal mucosa present, oropharynx normal and moist mucous membranes Throat: Yes posterior oropharynx normal Eyes General: appearance normal, both eyes and all related structures Eyelids: Yes eyelids normal Conjunctivae: conjunctivae normal Sclerae: sclerae normal Pupils: Equal, round and reactive pupils present EOM: EOMs intact bilaterally Neck Neck: Yes normal visual inspection, Yes full ROM and Yes no lymphadenopathy Lymphatic: no lymphadenopathy noted Chest Chest palpation & inspection: normal inspection of the chest Resp Other: Coarse inspiratory and expiratory wheezes noted throughout all lung [place] Effort & Inspection: normal respiratory effort and able to speak in complete sentences Auscultation: clear to auscultation bilaterally and crackles Cardio Rate: regular rate Rhythm: regular rhythm Heart sounds: S1 normal heart sound present and S2 normal heart sound present GI Inspection: Yes normal to inspection Skin General skin exam: no rashes or lesions noted Trauma: no lacerations or abrasions Wounds: no wounds Neuro General: patient oriented x3 and moves all extremities Cranial nerves: Yes Equal, round and reactive pupils present Extrem General: Yes normal to inspection Right upper extremity: normal to inspection Left upper extremity: normal to inspection Right lower extremity: normal to inspection Left lower extremity: normal to inspection Course Course Course Narrative: This is a rapid medical exam performed by Danny Metcalf NP: Additional HPI, ROS, PE not included below will be deferred to primary provider. Patient is a 70-year-old female with history of asthma, Parkinsons, HTN, depression presenting to the ED with complaint of shortness of breath/wheezing. Recently hospitalized at [facility], discharged on Mon. Increased WOB, coarse LS, O2 98% on room air in triage, diffuse wheezing. Plan: viral serology, EKG, ED bronch protocol, labs Medications Administered Discontinued Medications Generic Name Dose Route Start Last Admin Trade Name Reva PRN Reason Stop Dose Admin Albuterol Sulfate 7.5 mg/ 0 mg 05/26/25 10:43 05/26/25 10:48 Albuterol/Ipratropium 3 ml INHALE 05/26/25 10:44 10 each ONCE ONE Administration Albuterol Sulfate 5 mg/ 0 mg 05/26/25 11:17 05/26/25 11:26 Albuterol/Ipratropium 3 ml INHALE 05/26/25 11:18 7.5 each ONCE ONE Administration Magnesium Sulfate 2 gm in 50 mls @ 150 mls/hr 05/26/25 11:16 05/26/25 12:00 Magnesium Sulfate/H2o IV 05/26/25 11:35 Infused ONCE ONE Infusion Sodium Chloride 1,434 mls @ 1,434 mls/hr 05/26/25 11:45 05/26/25 13:30 Ns IV 05/26/25 12:44 Infused .Q1H STA Infusion Ceftriaxone Sodium 1 gm/ 50 mls @ 100 mls/hr 05/26/25 11:45 05/26/25 12:50 Sodium Chloride IV 05/26/25 12:14 Infused ONCE ONE Infusion Methylprednisolone Sodium Succinate 60 mg 05/26/25 11:16 05/26/25 11:30 Methylprednisolone Sod Succ 125 Mg/2 Ml Vial IVPUSH 05/26/25 11:17 60 mg ONCE ONE Administration Midazolam HCl 1 mg 05/26/25 11:25 05/26/25 11:32 Midazolam Hcl 2 Mg/2 Ml Vial IVPUSH 05/26/25 11:26 1 mg ONCE ONE Administration Medical Decision Making Medical Decision Making MDM Narrative: This is a 70-year-old female, with a past medical history of depression, anxiety, hypertension and Parkinson's disease, who presents emergency department with complaints of shortness for breath. Recent admission to [facility] due to asthma exacerbation. On arrival, patient is tachypneic at 24, pulse of 102. Patient appears to be anxious appearing. Lungs are coarse with wheezes noted throughout all lung richardson, diminished in the lower lung bases. Patient shaky, and tachypneic therefore I had my attending physician, Dr. Langford assess patient. We believe that there is a anxiety component to this as well with the addition of the updrafts as well as Parkinson's, could be contributing to her shakiness. Medicate with Solu-Medrol IV, and IV magnesium as well as 1 time dose of Versed to help with anxiety. 12:43 PM 05/26/2025 (Oma Aguilar PA-C): Patient reassess, feeling much better after receiving medications, she continues to receive IV fluids. We will continue to closely monitor. 1:19 PM 05/26/2025 (Oma Aguilar PA-C): Patient feeling much better, will obtain walking O2 sat. She continues to have inspiratory and expiratory wheezes noted more pronounced in the upper lung richardson, however significantly improved since arrival. 2:42 PM 05/26/2025 (Oma Aguilar PA-C): Patient reassess, she states that she is very wheezy upon ambulation, becomes very tachypneic upon ambulation. Patient does not feel comfortable being discharged home with oral prednisone and updrafts therefore will attempt to admit to the medical service. Differential Diagnosis Differential Diagnoses: The differential diagnosis associated with the presentation includes Asthma exacerbation, URI, pneumonia, COVID, flu Lab Data MDM Lab Attestation statement: I reviewed the patient's lab results. Leukocytosis at 14.6, likely reactive secondary to pain on prednisone. VBG revealing a respiratory alkalosis with a pH of 7.65, chemistry revealing no significant electrolyte derangement. Viral swabs negative. 05/26/25 11:07 05/26/25 11:07 Labs: Lab Results 05/26/25 05/26/25 05/26/25 Range/Units 11:07 11:15 11:37 WBC 14.6 H (4.8-10.8) X10*3/uL RBC 5.08 (4.20-5.50) X10*6/uL Hgb 14.0 (12.0-16.0) g/dl Hct 42.3 (37.0-47.0) % MCV 83.3 (80.0-98.0) fL MCH 27.6 (27.0-33.0) pg MCHC 33.1 (31.0-35.0) g/dl RDW 13.7 (11.0-16.0) % Plt Count 363 D (160-400) X10*3/uL MPV 10.0 (9.4-12.3) fL Immature Gran % (Auto) 1.0 H (0.0-0.4) % Neut % (Auto) 77.1 H (45-73) % Lymph % (Auto) 16.3 L (20-40) % [place] % (Auto) 5.0 (2-11) % Eos % (Auto) 0.5 (0-4) % Baso % (Auto) 0.1 (0-2) % Lymph # (Auto) 2.4 (1.2-4.9) X10*3/uL [place] # (Auto) 0.7 (0.1-1.2) X10*3/uL Eos # (Auto) 0.1 (0.0-0.4) X10*3/uL Baso # (Auto) 0.0 (0.0-0.2) X10*3/uL Abs Immat Gran (auto) 0.14 H (0.00-0.03) X10*3/uL Absolute Neuts (auto) 11.2 H (2.0-8.3) x10*3/uL Absolute Nucleated RBC 0.000 (0.0-0.012) X10*3/uL Nucleated RBC % (auto) 0.0 (0.0-0.2) /100WBC PT 12.3 (11.2-13.5) SEC INR 1.0 (0.9-1.1) VBG pH 7.65 H* (7.32-7.43) VBG pCO2 21 mmHg VBG pO2 99 mmHg VBG HCO3 23 (22-26) mmol/L VBG O2 Saturation 100.0 % VBG Base Excess 4.6 mmol/L Sodium 138 (135-145) mmol/L Potassium 3.7 (3.3-5.1) mmol/L Chloride 107 (96-108) mmol/L Carbon Dioxide 21 L (22-29) mmol/L Anion Gap 14 (12-20) BUN 16 (9-16) mg/dL Creatinine 0.75 (0.5-1.4) mg/dL Estim Creat Clear Calc 62.7 Estimated GFR > 60 Random Glucose 112 (60-115) mg/dL Lactic Acid (0.5-2.0) mmol/L Calcium 10.1 (8.4-10.2) mg/dL Magnesium 2.0 (1.6-2.6) mg/dL Total Bilirubin 0.6 (0.0-1.0) mg/dL AST 29 (5-31) U/L ALT 18 (0-31) U/L Alkaline Phosphatase 103 (39-117) U/L Troponin I High Sens < 2.7 (<3.5-17.0) ng/L NT-Pro-B Natriuret Pep 28.8 (<300) pg/mL Total Protein 7.4 (6.5-8.0) g/dL Albumin 4.7 (3.5-5.0) g/dL Urine Color Urine Appearance Urine pH (5.0-9.0) Ur Specific [place] (1.005-1.025) Urine Protein (Neg-Trace) mg/dL Urine Glucose (UA) (Negative) mg/dL Urine Ketones (Negative) mg/dL Urine Blood (Negative) Urine Nitrite (Negative) Ur Leukocyte Esterase (Negative) Influenza Type A (PCR) NEGATIVE (Negative) Influenza Type B (PCR) NEGATIVE (Negative) RSV RNA Qual (PCR) NEGATIVE (Negative) SARS-CoV-2 RNA (RT-PCR) NEGATIVE (Negative) 05/26/25 05/26/25 Range/Units 11:57 13:29 WBC (4.8-10.8) X10*3/uL RBC (4.20-5.50) X10*6/uL Hgb (12.0-16.0) g/dl Hct (37.0-47.0) % MCV (80.0-98.0) fL MCH (27.0-33.0) pg MCHC (31.0-35.0) g/dl RDW (11.0-16.0) % Plt Count (160-400) X10*3/uL MPV (9.4-12.3) fL Immature Gran % (Auto) (0.0-0.4) % Neut % (Auto) (45-73) % Lymph % (Auto) (20-40) % [place] % (Auto) (2-11) % Eos % (Auto) (0-4) % Baso % (Auto) (0-2) % Lymph # (Auto) (1.2-4.9) X10*3/uL [place] # (Auto) (0.1-1.2) X10*3/uL Eos # (Auto) (0.0-0.4) X10*3/uL Baso # (Auto) (0.0-0.2) X10*3/uL Abs Immat Gran (auto) (0.00-0.03) X10*3/uL Absolute Neuts (auto) (2.0-8.3) x10*3/uL Absolute Nucleated RBC (0.0-0.012) X10*3/uL Nucleated RBC % (auto) (0.0-0.2) /100WBC PT (11.2-13.5) SEC INR (0.9-1.1) VBG pH (7.32-7.43) VBG pCO2 mmHg VBG pO2 mmHg VBG HCO3 (22-26) mmol/L VBG O2 Saturation % VBG Base Excess mmol/L Sodium (135-145) mmol/L Potassium (3.3-5.1) mmol/L Chloride (96-108) mmol/L Carbon Dioxide (22-29) mmol/L Anion Gap (12-20) BUN (9-16) mg/dL Creatinine (0.5-1.4) mg/dL Estim Creat Clear Calc Estimated GFR Random Glucose (60-115) mg/dL Lactic Acid 1.7 (0.5-2.0) mmol/L Calcium (8.4-10.2) mg/dL Magnesium (1.6-2.6) mg/dL Total Bilirubin (0.0-1.0) mg/dL AST (5-31) U/L ALT (0-31) U/L Alkaline Phosphatase (39-117) U/L Troponin I High Sens (<3.5-17.0) ng/L NT-Pro-B Natriuret Pep (<300) pg/mL Total Protein (6.5-8.0) g/dL Albumin (3.5-5.0) g/dL Urine Color Yellow Urine Appearance Cloudy Urine pH 8.5 (5.0-9.0) Ur Specific [place] 1.010 (1.005-1.025) Urine Protein Negative (Neg-Trace) mg/dL Urine Glucose (UA) Negative (Negative) mg/dL Urine Ketones Negative (Negative) mg/dL Urine Blood Negative (Negative) Urine Nitrite Negative (Negative) Ur Leukocyte Esterase Negative (Negative) Influenza Type A (PCR) (Negative) Influenza Type B (PCR) (Negative) RSV RNA Qual (PCR) (Negative) SARS-CoV-2 RNA (RT-PCR) (Negative) Independent Interpretation I performed an independent interpretation of an: EKG Interpretation: EKG sinus tachycardia at a ventricular rate of 102, no STEMI. Radiology Impression Discussion of test interpretation with radiology: I have reviewed the radiologist's reading. Radiologist Impression: FINDINGS: The cardiomediastinal silhouette is within normal limits. The lungs are well expanded. There is no focal consolidation, edema, or effusion. No pneumothorax. Mild thoracic spine spondylosis. Surgical clips in the right upper quadrant... XR/XR chest 2V IMPRESSION: No acute pulmonary findings Electronically signed by: Hector Zaldivar MD 05/26/2025 10:42 AM [facility] Dictated By: Hector Zaldivar MD Critical Care Time Critical Care Time Critical Care Time: Yes Total Critical Care Time: 45 Attestation: I have personally provided critical care time exclusive of time spent on separately billable procedures. Time includes review of lab data, radiology results, discussion with consultants, and monitoring for potential decompensation. Intervention performed as documented. Discharge Plan Discharge Clinical Impression: Asthma exacerbation
--- NOTE | 2025-05-26 10:26 | ECG_ITS ---
Test Reason : SOB Blood Pressure : */* mmHG Vent. Rate : 102 BPM Atrial Rate : 102 BPM P-R Int : 124 ms QRS Dur : 76 ms QT Int : 356 ms P-R-T Axes : 37 -4 -2 degrees QTcB Int : 463 ms Sinus tachycardia Nonspecific ST and T wave abnormality Abnormal ECG When compared with ECG of 17-Jul-2023 12:54, Nonspecific ST and T wave abnormality more prominent Referred By: Florina Metcalf Electronically Signed By: LONA HEWITT
[2025-05-26] MEDS: Albuterol Sulfate 7.5 MG, Albuterol/Iprat 2.5/0.5MG 3 ML 3 ML INHALE (10:48)
--- NOTE | 2025-05-26 11:04 | PC.NURSE ---
Pt declined po challenged stating she just wants to go home. Pt ambulated out of ED w/ steady gait and in nad.
[2025-05-26 11:16] LABS: MANUAL DIFF FLAG NO
[2025-05-26 11:21] LABS: Venous Blood Gas Refer to POC result
[2025-05-26 11:21] LABS: VBG HCO3 23 mmol/L (22-26); VBG O2 % Saturation 100.0 %
[2025-05-26 11:22] LABS: Hematocrit 42.3 % (37.0-47.0); Hemoglobin 14.0 g/dl (12.0-16.0); Imm Gran Abs Auto 0.14 X10*3/uL (0.00-0.03); Imm Gran Pct Auto 1.0 % (0.0-0.4); Lymphocytes Absolute Auto 2.4 X10*3/uL (1.2-4.9); Mean Corpuscular HGB Conc 33.1 g/dl (31.0-35.0); Mean Corpuscular Hemoglobin 27.6 pg (27.0-33.0); Mean Corpuscular Volume 83.3 fL (80.0-98.0); NRBC Abs Auto 0.000 X10*3/uL (0.0-0.012); NRBC Pct Auto 0.0 /100WBC (0.0-0.2); Platelet Count 363 X10*3/uL (160-400); Red Blood Count 5.08 X10*6/uL (4.20-5.50); White Blood Count 14.6 X10*3/uL (4.8-10.8)
[2025-05-26 11:26] LABS: INTERNATIONAL NORM RATIO 1.0 (0.9-1.1); Prothrombin Time 12.3 SEC (11.2-13.5)
[2025-05-26] MEDS: Albuterol Sulfate 5 MG, Albuterol/Iprat 2.5/0.5MG 3 ML 3 ML INHALE (11:26)
[2025-05-26] MEDS: Magnesium Sulfate/H2O 2 GM/50 ML PIGGYBACK IV (11:30)
[2025-05-26 11:38] LABS: Alanine Aminotransferase 18 U/L (0-31); Albumin Level 4.7 g/dL (3.5-5.0); Alkaline Phosphatase 103 U/L (39-117); Anion Gap 14 (12-20); Aspartate Amino Transferase 29 U/L (5-31); Blood Urea Nitrogen 16 mg/dL (9-16); Calcium 10.1 mg/dL (8.4-10.2); Carbon Dioxide 21 mmol/L (22-29); Chloride 107 mmol/L (96-108); Creatinine Clr Calc Pharmacy 62.7; Estimated Glomerular Filt Rate > 60; Magnesium 2.0 mg/dL (1.6-2.6); Potassium 3.7 mmol/L (3.3-5.1); Sodium 138 mmol/L (135-145); Total Protein 7.4 g/dL (6.5-8.0)
[2025-05-26 11:46] LABS: NT Pro B Type Natriuretic Pept 28.8 pg/mL (<300)
[2025-05-26 11:51] LABS: Troponin-I High Sensitivity < 2.7 ng/L (<3.5-17.0)
[2025-05-26] MEDS: 0.9 % Sodium Chloride 1,434 ML 1434 ML IV (12:11)
[2025-05-26 12:51] LABS: Resp Syncy Virus RNA Qual PCR NEGATIVE (Negative); SARS COV2 PCR INHOUSE NEGATIVE (Negative)
[2025-05-26 13:49] LABS: Appearance Urine Cloudy; Glucose Urine UA Negative (Negative); PH 8.5 (5.0-9.0); Specific Gravity - Urine 1.010 (1.005-1.025)
--- NOTE | 2025-05-26 13:56 | MHC.EDTECH ---
PATIENT WAS AMBULATED FOR O2 TRIAL.PATIENTS O2 PRIOR TO AMBULATION WAS 97 ,HEART RATE 97 RESPIRATIONS 18.AFTER PATIENT AMBULATED O2 WAS 98, HEARTRATE 106 AND RESPIRATIONS 20.PATIENT INDICATED FEELING SHORT OF BREATH.
--- NOTE | 2025-05-26 15:17 | P.HPHOSP_ITS ---
History of Present Illness Date of Service: 05/26/25 Attending physician on admission: Travis Kc Chief Complaint: Asthma exacerbation HPI: 70y/o f pmhx depression, asthma, hypertension, and Parkinson's disease came to ed with shortness of breath,duration pf approx. 2 weeks she has had increased shortness for breath and wheezing. She went to [facility] where she was admitted for 3 days due to asthma exacerbation. She states that she continues to be on steroids however states that her symptoms have not improved and was discharged from [facility] on 05/22, she started to feel as though her asthma was worsening. 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 States that she is taking prednisone 20 mg daily which she has been compliant with, last dose was this morning. She has been using her updrafts at home as well as taking her prednisone which has provided her with minimal relief. labs and imaging reviewed ; wbc; 14.6 bmp seems fine lactic acid normal cxr -negative. blood cultures pending patient given linda suazos -sob somewhat improving -but still sob -so admission requested for asthma excerebation. She denies any chest pain, fevers, chills, abdominal pain, nausea, vomiting or diarrhea. No other complaints or concerns at this time. Review of Systems 2 Review of Systems: ABOVE Yes all other systems are reviewed and are negative [facility] Medical History Depression Asthma Hypertension Parkinsons disease Social History Patient Tobacco Use Status: Never used Tobacco Smoked in Last 30 Days: No Use of substances other than those prescribed or required for medical reasons: No Currently Displaying Signs/Symptoms of Drug Intoxication Withdrawal: No Advance Directives: No Advance Directives Information Provided: Yes Do you have a plan to hurt others: No Plan Meds Allergies Allergy/AdvReac Type Severity Reaction Status Date / Time From Lipitor Allergy Mild MYALGIAS Uncoded 05/26/25 10:25 Active Medications: Current Medications Acetaminophen (Acetaminophen 325 Mg Tablet) 650 mg PO Q6H PRN PRN Reason: Pain, Mild 1-3,fever,headache Calcium Carbonate (Calcium Carbonate 750 Mg Tab.Chew) 750 mg PO Q4H PRN PRN Reason: Heartburn Magnesium Hydroxide (Milk Of Magnesia 30 Ml Oral.Susp) 30 ml PO DAILY PRN PRN Reason: Constipation Melatonin (Melatonin 3 Mg Tablet) 6 mg PO BEDTIME PRN PRN Reason: Insomnia Sodium Chloride (0.9 % Sodium Chloride Flush 3 Ml Syringe) 3 ml IVFLUSH QSHIFT [facility] Home Medications ?Medication ?Instructions ?Recorded ?Confirmed ?Last Taken ?Type albuterol sulfate 90 mcg/actuation 2 puff inhalation Q 4H PRN 05/26/25 05/26/25 Unknown History aerosol inhaler Respiratory Distress calcium 600 mg (as 1 tab PO BID osteoporosis 05/26/25 05/26/25 History carbonate)-vitamin D3 10 mcg (400 unit) tablet carbidopa 25 mg-levodopa 100 mg 1 tab PO TID 05/26/25 05/26/25 05/26/25 History tablet fluoxetine 20 mg capsule 40 mg PO DAILY 05/26/2507/2005/26/25 History loratadine 10 mg tablet 10 mg PO DAILY PRN Allergy S ymptoms 05/26/25 05/26/25 Unknown History mirtazapine 15 mg tablet 15 mg PO BEDTIME 05/26/2505/25/25 History montelukast 10 mg tablet 10 mg PO DAILY 05/26/2507/2005/26/25 History omalizumab 150 mg/mL subcutaneous 150 mg subcut QMONTH 05/26/25 05/26/25 05/19/25 History syringe (Xolair) omeprazole 40 mg capsule,delayed 40 mg PO DAILY@0630 1 07/27/24 05/26/25 05/26/25 History release piroxicam 20 mg capsule 20 mg PO DAILY PRN low back pain 05/26/25 05/26/25 Unknown History prednisone 10 mg tablet 20 mg PO DAILY 05/26/2507/20 Unknown History Physical Exam 2 Vital Signs and Narrative: Vital Signs: Last Vital Signs Temp 98.0 F 05/26/25 12:45 Pulse 92 05/26/25 12:45 Resp 14 05/26/25 12:45 BP 114/58 L 05/26/25 12:45 Pulse Ox 97 05/26/25 12:45 O2 Del Method Room Air 05/26/25 12:45 BMI result Body Mass Index 29.5 Appearance: Alert.? Oriented X3.? cvs: rrr, [id number] , no murmur res: air entery diminshed ,b/l wheezing abd: no rebound or guarding ,nt, bs present. ext pulses present , no cyanosis . neuro: axo3 , nonfocal. Results Labs 05/26/25 11:07 05/26/25 11:07 Labs: Laboratory Results - last 24 hr 05/26/25 05/26/25 05/26/25 11:07 11:15 11:37 MCV 83.3 MCH 27.6 MCHC 33.1 RDW 13.7 Plt Count 363 D MPV 10.0 Immature Gran % (Auto) 1.0 H Neut % (Auto) 77.1 H Lymph % (Auto) 16.3 L [place] % (Auto) 5.0 Eos % (Auto) 0.5 Baso % (Auto) 0.1 Lymph # (Auto) 2.4 [place] # (Auto) 0.7 Eos # (Auto) 0.1 Baso # (Auto) 0.0 Abs Immat Gran (auto) 0.14 H Absolute Neuts (auto) 11.2 H Absolute Nucleated RBC 0.000 Nucleated RBC % (auto) 0.0 PT 12.3 INR 1.0 VBG pH 7.65 H* VBG pCO2 21 VBG pO2 99 VBG HCO3 23 VBG O2 Saturation 100.0 VBG Base Excess 4.6 Anion Gap 14 Estim Creat Clear Calc 62.7 Estimated GFR > 60 Random Glucose 112 Lactic Acid Calcium 10.1 Magnesium 2.0 Total Bilirubin 0.6 AST 29 ALT 18 Alkaline Phosphatase 103 Troponin I High Sens < 2.7 NT-Pro-B Natriuret Pep 28.8 Total Protein 7.4 Albumin 4.7 Urine Color Urine Appearance Urine pH Ur Specific [place] Urine Protein Urine Glucose (UA) Urine Ketones Urine Blood Urine Nitrite Ur Leukocyte Esterase Influenza Type A (PCR) NEGATIVE Influenza Type B (PCR) NEGATIVE RSV RNA Qual (PCR) NEGATIVE SARS-CoV-2 RNA (RT-PCR) NEGATIVE 05/26/25 05/26/25 11:57 13:29 MCV MCH MCHC RDW Plt Count MPV Immature Gran % (Auto) Neut % (Auto) Lymph % (Auto) [place] % (Auto) Eos % (Auto) Baso % (Auto) Lymph # (Auto) [place] # (Auto) Eos # (Auto) Baso # (Auto) Abs Immat Gran (auto) Absolute Neuts (auto) Absolute Nucleated RBC Nucleated RBC % (auto) PT INR VBG pH VBG pCO2 VBG pO2 VBG HCO3 VBG O2 Saturation VBG Base Excess Anion Gap Estim Creat Clear Calc Estimated GFR Random Glucose Lactic Acid 1.7 Calcium Magnesium Total Bilirubin AST ALT Alkaline Phosphatase Troponin I High Sens NT-Pro-B Natriuret Pep Total Protein Albumin Urine Color Yellow Urine Appearance Cloudy Urine pH 8.5 Ur Specific [place] 1.010 Urine Protein Negative Urine Glucose (UA) Negative Urine Ketones Negative Urine Blood Negative Urine Nitrite Negative Ur Leukocyte Esterase Negative Influenza Type A (PCR) Influenza Type B (PCR) RSV RNA Qual (PCR) SARS-CoV-2 RNA (RT-PCR) Imaging Radiologist's Impressions: Impressions Chest X-Ray 05/26/25 10:34 IMPRESSION: No acute pulmonary findings Electronically signed by: Hector Zaldivar MD 05/26/2025 10:42 AM EST Assessment and Plan (1) Asthma exacerbation: Qualifiers: Asthma persistence: intermittent Asthma severity: mild Qualified Code(s): J45.21 - Mild intermittent asthma with (acute) exacerbation Status: Acute Plan 70y/o f pmhx depression, asthma, hypertension, and Parkinson's disease came to ed with shortness of breath,duration pf approx. 2 weeks she has had increased shortness for breath and wheezin mild intermittent asthma excerebation; tachycardia -due to nebs tachypnea possible related to anxiety . moniter respiratory status closely cxr -negative. res viral panel continue nebs,steriods leucocytosis seems reactive sec to recent use of steriods. blood culture pending ,no clear infcetion signs -ua and cxr negative. htn; continue home meds. parkinsons; continue home meds depression ; continue home meds. dvt prophylax;s/c lovenox assessment/plan ttal time spent 70 min ,patient is full code Quality Stroke Does the patient have a stroke diagnosis?: No VTE Prior VTE?: No VTE Risk Level:: Medical - moderate - high VTE Device Contraindication: N/A - Device Ordered VTE Drug Contraindication: N/A - Med Ordered
--- OUTSIDE RECORDS SUMMARY | 2025-05-26 16:00 | XMS_ITS | Encounter Summary ---
Author Organization Formerly [facility] Address [address] [facility] [address] [place] [phone] Phone Care Team Providers Care Line Production Cook Name Role Phone Blanca Pineda MD Primary Care Provider [phone] Letitia Montejo MD Primary Care Prov ider Encounter Details Date Type Department Care Team (Late st Contact Info) Description 01/08/2024 Procedure Pass [facility] Endoscopy Admitting Dept Virtual Department [address] [place] [address] Social History Tobacco Use Types Packs/Day Years Used Date Smoking Tobacco: Former Cigarettes 1 969 - 1969 Smokeless Tobacco: Never Alcohol Use Standard Drinks/Week Comments Not Currently 0 (1 standard drink = 0.6 oz pur e alcohol) Education Answer Date Recorded Are you interested in more education? Not on ruddy e 10/22/2022 Are you concerned about learning? Not on file 10/22/2022 No 10/22/2022 No 10/22/2022 Digital Access Answer Date Recorded No 11/20/2022 No 11/20/2022 Reliable internet access at home? Not on file 11/20/2022 Device with a working camera? Not on file Intimate Partner Violence Answer Date R ecorded Denied Basic Needs Not on file 01/04/2024 In the past 12 months have y ou been in a relationship with a person who hurts, threatens, or tries to control you? No 01/04/2024 Worried food would run out Not on file 01/03 In the past 12 months have y ou been in a relationship with a person who hurts, threatens, or tries to control you? No 01/04/2024 Comments No Sex and Gender Information Value Date Recorded Sex Assigned at Not on file Legal Sex Female 8:19 AM EDT Gender Identity Not on file Sexual Orientation Not on file documented as of this encounter Plan of Treatment Upcoming Encounters Date Type Department Care Team (Late st Contact Info) Description 05/13/2025 Procedure Pass [address] [id number] 06/18/2025 7:05 AM EST Appointment [address] [address] Joseph Damian MD [address] [place] [address], [address] [place] [address] [email or web address] documented as of this encounter Visit Diagnoses Not on filedocumented in this encounter Care Teams Line Production Cook Relationship Specialty Start Date End Date Blanca Pineda MD [address] [place] [address] PCP - General Internal Medicine 04/23/21 05/16/24 Letitia Montejo MD [address] [place] [id number] PCP - General Family Medicine 05/17/24 documented as of this encounter Additional Source Comments The information contained in this document represents components of the legal health record. It is not the complete legal health record.[facility]
--- OUTSIDE RECORDS SUMMARY | 2025-05-26 16:00 | XMS_ITS | Clinical Summary ---
Author Organization [facility] Address [address] [address] Phone Care Team Providers Care Human Capital Consultant Name Role Phone Letitia Nascimento MD Primary Care Prov ider Allergies Active Allergy Reactions Criticality Noted Date Comments Latex Rash Low 09/20/2022 Levonorgestrel-Ethinyl Estrad 09/20/2022 Lorazepam 09/20/2022 Other reaction(s): ataxia, dizziness Medications ADVAIR HFA 230-21 mcg/actuation inhaler Inhale 1 puff into the lungs daily. 06/30/19 22 Active loratadine (CLARITIN) 10 mg tablet Take 1 tablet by mouth daily. 07/13/19 22 Active montelukast (SINGULAIR) 10 mg tablet Take 1 tablet by mouth daily. 07/13/19 22 Active naproxen (NAPROSYN) 500 MG tablet Take 1 tablet by mouth as needed. 07/19/19 22 Active amLODIPine (NORVASC) 10 MG tablet Take 5 mg by mouth. 07/19/19 23 Active budesonide (PULMICORT) 0.5 mg/2 mL nebulizer solution Inhale 0.5 mg into the lungs. 07/19/19 23 Active carbidopa-levodopa (SINEMET) 25-100 mg per tablet TAKE 1/2 TABLET BY MOUTH 3 TIMES A DAY 09/15/19 23 Active FLUoxetine (PROZAC) 20 MG capsule 2 (two) times a day. 08/26/19 23 Active XOLAIR 150 mg/mL subcutaneous syringe every 28 days. 08/19/19 Active triamcinolone (NASACORT AQ) 55 mcg/actuation nasal inhaler 55 mcg. 07/19/19 Active albuterol 2.5 mg /3 mL (0.083 %) nebulizer solutionIndication s:Moderate persistent asthma without complication Take 3 mL (2.5 mg total) by nebulization every 6 (six) hours as needed. 360 mL 5 09/21/19 Active omeprazole (PRILOSEC) 20 MG capsule Take 40 mg by mouth daily. Active acetaminophen (TYLENOL) 325 mg tablet Take 2 tablets (650 mg total) by mouth every 6 (six) hours as needed. 05/27/20 24 Active ondansetron (ZOFRAN-ODT) 4 MG disintegrating tablet Take 1 tablet (4 mg total) by mouth every 8 (eight) hours as needed for nausea. 20 tablet 2 05/27/20 Active famotidine (PEPCID) 40 MG tablet Take 40 mg by mouth. 07/09/19 Active Active Problems Problem Noted Date Diagnosed Date Hypertension 01/07/2024 Moderate persistent asthma without complication 09/20/2022 Assessment & Plan (09/20/2022 1:33 PM EDT): Currently doing very well on Advair and Xolair, which we will continue. We will repeat spirometry, exhaled nitric oxide measurement and CBC (to check eosinophil count) prior to next visit here. 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 Nontoxic multinodular goiter 07/20/2021 Assessment & Plan (07/20/2021 11:58 AM EST): This is a patient found to have an incidental thyroid nodule in 2017. The nodule has been biopsied and found to be benign. It has remained stable in size since 2017. I informed the patient that we normally follow the nodules for period of 11-years. We normally will repeat the ultrasound 1 year after the initial ultrasound then 2 years then 3 years then 5 years unless there is significant growth. So if we were to keep to do that time schedule the patient should have repeat ultrasound in April 26, 2023 and then again April 26, 2028 and that will be a period of 11 years monitoring. Since the nodule has been stable and previously biopsied and found to be benign there is no need to repeat biopsy again. She just needs to repeat the ultrasound in 2 years x 04/26/2023. Assuming the nodule remains stable then then she can repeat it by 2027. So at this point I cannot schedule the ultrasound so far in advance. So what the patient should do this either have her primary care physician request ultrasound for this date or she can contact me at this office and I can request the ultrasound myself. At this point I am not going to give her a follow-up appointment because there is nothing to do the following year. Encounters Date Type Department Care Team Description 05/13/2025 Transcribe Orders Virtual Department [address] [place] [id number] Joseph Damian MD Neck pain (Primary Dx); Numbness 04/14/2025 12:30 PM EDT Office Visit [address] [place] [address] Ember Brandt PA Kenny, Erin, PT Coccyx pain (Primary Dx) 04/10/2025 2:45 PM EDT Office Visit [address] [place] [address] Ember Brandt PA Kenny, Izzy, PT Coccyx pain (Primary Dx); Encounter for rehabilitation 04/08/2025 12:30 PM EDT Office Visit [address] [place] [address] Ember Brandt PA Kenny, Izzy, PT Coccyx pain (Primary Dx) 03/31/2025 12:30 PM EDT Office Visit [facility] [address] [place] [address] Ember Brandt PA Kenny, Izzy, PT Coccyx pain (Primary Dx) 03/28/2025 2:15 PM EDT Office Visit [facility] [address] [place] [address] Ember Brandt PA Kenny, Erin, PT Coccyx pain (Primary Dx) 03/24/2025 12:30 PM EDT Office Visit [facility] [address] [place] [address] Ember Brandt PA Kenny, Erin, PT Coccyx pain (Primary Dx) 03/21/2025 7:27 AM EDT - 03/21/2025 11:59 PM EDT Hospital Encounter [facility], Bone Density - [address] [address] Letitia Nascimento MD Discharge Disposition: Home or Self Care 03/17/2025 12:30 PM EDT Office Visit [facility] [address] [place] [address] Ember Brandt PA Kenny, Erin, PT Coccyx pain (Primary Dx) 03/17/2025 Plan of Care Documentation [facility] [address] [place] [address] from Last 3 Months Family History Medical History Relation Comments Asthma Brother Coronary artery disease Father Pancreatic cancer Mother Thyroid disease Mother Heart disease Sister Thyroid disease Sister Relation Status Comments Brother Father Mother Sister Alive Social History Tobacco Use Types Packs/Day Years Used Date Smoking Tobacco: Former Cigarettes 1 969 - 1969 Smokeless Tobacco: Never Tobacco Cessation:Counseling Given: Not Answered Alcohol Use Standard Drinks/Week Comments Never 0 (1 standard drink = 0.6 oz [...] ecorded Denied Basic Needs Not on file 08/06/2024 In the past 12 months have y ou been in a relationship with a person who hurts, threatens, or tries to control you? No 08/06/2024 Worried food would run out Not on file 08/06 In the past 12 months have y ou been in a relationship with a person who hurts, threatens, or tries to control you? No 08/06/2024 Comments No Sex and Gender Information Value Date Recorded Sex Assigned at Not on file Legal Sex Female 8:19 AM EDT Gender Identity Not on file Sexual Orientation Not on file Last Filed Vital Signs Vital Sign Reading Time Taken Comments Blood Pressure 124/83 08/08/2024 10:05 AM EST Pulse 74 08/08/2024 10:05 AM EST Temperature 35.9 C (96.7 F) 08/08/2024 9:43 AM EST Respiratory Rate 20 08/08/2024 10:05 AM EST Oxygen Saturation 97% 08/08/2024 10:05 AM EST Inhaled Oxygen Concentration - - Weight 63.5 kg (140 lb) 08/06/2024 8:41 AM EST Height 154.9 cm (5' 1 ) 05/22/2024 9:33 AM EST Body Mass Index 26.45 05/22/2024 9:33 AM EST Plan of Treatment Upcoming Encounters Date Type Department Care Team (Late st Contact Info) Description 05/13/2025 Procedure Pass [address] [address] 06/18/2025 7:05 AM EST Appointment [address] [address] Joseph Damian MD [address] [place] [address], [address] [place] [address] [email or web address] Health Maintenance Due Date Last Done Comments LIPID PANEL 1955 DEPRESSION SCREENING 1967 MAMMOGRAM 1995 COLOGUARD 2000 FOBT 2000 SIGMOIDOSCOPY 2000 VIRTUAL COLONOSCOPY 2000 RSV VACCINE (1 - Risk 50-74 years 1-dose series) 2005 PNEUMOCOCCAL VACCINES (50+ years) (2 of 2 - PCV) 10/12/2022 10/12/2021 BLOOD PRESSURE 12/16/2024 06/17/2024 INFLUENZA VACCINE (#1) 2025 11/15/202 4, 04/06/2023, 06/03/2022, Additional history exists COVID-19 VACCINE ( season) 2025 07/06/2022, 05/12/2021, 09/11/2020, Additional history exists FIT TEST 07/04/2025 07/04/2024 SMOKING Hx and SMOKELESS TOBACCO SCREENING 08/08/2025 08/08/2024 Adult Td,Tdap Booster 11/30/2027 11/29/2017 COLONOSCOPY 01/07/2034 01/08/2024 COLORECTAL CANCER SCREENING 01/07/2034 ZOSTER VACCINES Completed 05/01/2020, 02/18/2020 HEPATITIS C SCREENING Completed 07/11/2024, 025 OSTEOPOROSIS SCREENING INITIAL (ONE-TIME) Completed 03/21/2025 HEPATITIS A VACCINES Aged Out No long er eligible based on patient's age to complete this topic HIB VACCINES Aged Out No longer eligi ble based on patient's age to complete this topic MENINGOCOCCAL VACCINES (ACWY) Aged Out No longer eligible based on patient's age to complete this topic MENINGOCOCCAL VACCINES (B) Aged Out N o longer eligible based on patient's age to complete this topic Medical Devices Not on file Procedures Procedure Name Priority Date/Time Associated Diagnosis Comments BD DXA AXIAL (SPINE) WITH HIP Routine 03/21/2025 7:56 AM EDT Asymptomatic menopausal state AMB REFERRAL TO [facility] PHYSICAL THERAPY Routine 03/17/2025 1:40 PM EDT Encounter for rehabilitation HEPATITIS C ANTIBODY, QUALITATIVE Routine 07/11/2024 2:43 PM EST Elevated LFTs FECAL IMMUNOCHEMICAL BLOOD TEST X1 (FIT) Routine 07/04/2024 11:45 AM EST Abdominal pain, epigastric Melena Nausea ENDOSCOPY, COLON 01/08/2024 8:27 AM EDT from Last 3 Months or Most Recently Relevant to Health Maintenance Results * BD DXA AXIAL (SPINE) WITH HIP (03/21/2025 7:56 AM EDT) Anatomical Region Laterality Modality Bone Density Bone Density 03/21/2025 7:55 AM EDT Impressions 03/21/2025 12:45 PM EDT Interpretation: Osteoporosis. Narrative 03/21/2025 12:45 PM EDT Referred By: PARADISE NASCIMENTO Scanner: HoloTherasis Horizon A with serial# of [id number] located at [facility] Bone Density Scan (DXA) 03/21/25 Details of prior DXA scans are available by clicking View Full Report BMD T- Z- Skeletal Site gm/cm2 score score BMD Change Since Prior Scan ------ ----- ----- PA Spine (L1-L4) 0.677 -3.40 -1.30 N/A Total Hip (Left) 0.756 -1.50 -0.10 N/A Femoral Neck (Left) 0.640 -1.90 -0.20 N/A Total Hip (Right) 0.701 -2.00 -0.50 N/A Femoral Neck (Right) 0.573 -2.50 -0.80 N/A ------ ----- ----- * Denotes significant change when >= 0.022 g/cm2 for the spine, 0.027 g/cm2 for the total hip, 0.029 g/cm2 for the femoral neck. Interpretation: Osteoporosis. Technical Quality: Imaging of all sites was of adequate quality. FRAX: A FRAX(r) score is not provided because the patient has osteoporosis, which is generally an indication for treatment. Reviewed By: Janee Paredes MD on 03/21/2025 12:45:34 Additional Information: -World Health Organization criteria classify adults based on lowest T-score at PA spine, hip or forearm: Normal (T-score >= -1.0), Osteopenia (T-score between -1 and -2.5), or Osteoporosis (T-score <= -2.5). At [facility], T-scores are compared to peak bone density of a young white gender matched reference population. - For premenopausal women and men under the age of 50, Z-scores (comparison to age, gender, and ethnicity matched reference population) are used: Above expected range for age (Z-score >= 2.0), Within expected range of age (Z-score 1.9 to -1.9), or Below expected range for age (Z-score <= -2.0). - The Bone Health and Osteoporosis Foundation recommends that treatment be considered in men aged more than 50 years and in postmenopausal women with ANY of the following: Prior hip or vertebral fractures; T-score of <= -2.5 at the PA spine or hip; or 10 year fracture probability by FRAX of >= 3% for the hip or >= 20% for major osteoporotic fracture. - The FRAX algorithm (https://www.mindi.ac.uk/FRAX/tool.aspx) is designed to predict 10-year fracture risk in treatment-naive adults between the ages of 40 and 90. It is not intended to be used in those receiving pharmacologic osteoporosis treatment. - The TBS is derived from the texture of the DXA spine image and has been shown to be related to bone microarchitecture and fracture risk. This data provides information independent of BMD value. It adds to fracture risk assessment with a FRAX adjusted for TBS score. If your patient had a TBS and qualified for a FRAX score, the reported FRAX score has been adjusted for TBS. TBS Score Interpretation 1.350 and greater Normal bone microarchitecture 1.200 to 1.350 Partially degraded bone microarchitecture 1.200 and less Degraded bone microarchitecture - Including race/ethnicity in the generation of T- or Z-scores or in the FRAX calculation is complicated, and currently undergoing active review to ensure that we can give patients the best information on their risk of fracture. - Some prior studies may not be compatible with our comparison software. - Click on View Full Report to see subsequent pages with images and prior bone density results. Procedure Note Janee Paredes MD - 03/21/2025 Referred By: PARADISE NASCIMENTO Scanner: DiscoveRX A with serial# of [id number] located at [facility] Bone Density Scan (DXA) 03/21/25 Details of prior DXA scans are available by clicking View Full Report BMD T- Z- Skeletal Site gm/cm2 score score BMD Change Since Prior Scan ------ ----- PA Spine (L1-L4) 0.677 -3.40 -1.30 N/A Total Hip (Left) 0.756 -1.50 -0.10 N/A Femoral Neck (Left) 0.640 -1.90 -0.20 N/A Total Hip (Right) 0.701 -2.00 -0.50 N/A Femoral Neck (Right) 0.573 -2.50 -0.80 N/A ------ ----- * Denotes significant change when >= 0.022 g/cm2 for the spine, 0.027g/cm2 for the total hip, 0.029 g/cm2 for the femoral neck. Interpretation: Osteoporosis. Technical Quality: Imaging of all sites was of adequate quality. FRAX: A FRAX(r) score is not provided because the patient hasosteoporosis, which is generally an indication for treatment. Reviewed By: Janee Paredes MD on 03/21/2025 12:45:34 Additional Information: -World Health Organization criteria classify adults based on lowestT-score at PA spine, hip or forearm: Normal (T-score >= -1.0), Osteopenia (T-score between -1 and -2.5), or Osteoporosis (T-score <= -2.5). At [facility], T-scores are compared to peak bone density of a young white gender matched reference population. - For premenopausal women and men under the age of 50, Z-scores(comparison to age, gender, and ethnicity matched reference population) are used:Above expected range for age (Z-score >= 2.0), Within expected range of age (Z-score 1.9 to -1.9), or Below expected range for age (Z-score <= -2.0). - The Bone Health and Osteoporosis Foundation recommends that treatment be considered in men aged more than 50 years and in postmenopausal women with ANY of the following: Prior hip or vertebral fractures; T-score of <= -2.5 at the PA spine or hip; or 10 year fracture probability by FRAX of >= 3%for the hip or >= 20% for major osteoporotic fracture. - The FRAX algorithm (https://www.mindi.ac.uk/FRAX/tool.aspx) is designed to predict 10-year fracture risk in treatment-naive adultsbetween the ages of 40 and 90. It is not intended to be used in those receiving pharmacologic osteoporosis treatment. - The TBS is derived from the texture of the DXA spine image and has been shown to be related to bone microarchitecture and fracture risk. This data provides information independent of BMD value. It adds to fracture risk assessment with a FRAX adjusted for TBS score. If your patient had a TBSand qualified for a FRAX score, the reported FRAX score has been adjusted for TBS. TBS Score Interpretation 1.350 and greater Normal bone microarchitecture 1.200 to 1.350 Partially degraded bone microarchitecture 1.200 and less Degraded bone microarchitecture - Including race/ethnicity in the generation of T- or Z-scores or in the FRAX calculation is complicated, and currently undergoing active review to ensure that we can give patients the best information on their risk of fracture. - Some prior studies may not be compatible with our comparison software. - Click on View Full Report to see subsequent pages with images andprior bone density results. IMPRESSION: Interpretation: Osteoporosis. Letitia Trinidad MD IMG BD BONE DENSIT Y DEXA Final Result * Ambulatory referral to [facility] Physical Therapy (03/17/2025 1:40 PM EDT) Other Ember RUIZ AMB [facility] REFERRALS Final Resul t * Hepatitis C antibody, qualitative (07/11/2024 2:43 PM EST) HCV NON-REACTIV E NON-REACTI VE [facility] Blood 07/11/2024 2:43 PM EST 07/11/2024 2:47 PM EST Amirah RUIZ LAB BLOOD BKR ORDERABLES Fi nal Result [address] [address] * (ABNORMAL) Fecal immunochemical test x1 (FIT) (07/04/2024 11:45 AM EST) Pathologist [facility] Immuno Fecal Occult Positive(A ) Negative [facility] Stool (Stool) 07/04/2024 11: 45 AM EST 07/04/2024 12:54 PM EST Result [facility] Amirah RUIZ LAB BODY FLUIDS AND STOOL O RDERABLES Final Result [address] [address] * ENDOSCOPY, COLON (01/08/2024 8:27 AM EDT) Narrative Transcriptions Minh Norton MD, MPH - 01/08/2024 8:27 AM EDT [facility] Patient Name: Sarahi Henry Attending MD:: MINH NORTON MD, Procedure Date: 01/08/2024 8:27 AM Date of : 1955 Age: 68 Admit Type: Outpatient Gender: Female Room: [place] [address] Referring MD: Blanca Pineda MD Exam Type: Colonoscopy Indications: Rectal bleeding, Rectal pain Medications: Monitored Anesthesia Care Procedure: Informed consent was obtained from the patientafter discussion of the indications, limitations, alternatives, benefits, and risks of the procedure. Risks specifically discussed include but are not limited to medication reactions, missed lesions, bleeding, perforation, or the need for emergent surgery. Throughout the procedure, the patient's blood pressure, pulse, end-tidal CO2, and oxygensaturations were monitored continuously. The Olympus adult variable colonoscope [id number] #6 was introduced through the anus and advanced to the cecum, identified by appendiceal orifice andileocecal valve. The colonoscopy was performed without difficulty. The patient tolerated the procedurewell. The quality of the bowel preparation was evaluated using the BBPS ([place] Bowel Preparation Scale)with scores of: Right Colon = 3, Transverse Colon = 3and Left Colon = 3 (entire mucosa seen well with no residual staining, small fragments of stool oropaque liquid). The total BBPS score equals 9. Theileocecal valve, appendiceal orifice, and rectum were photographed. Complications: No immediate complications. Findings: The perianal and digital rectal examinations were normal. A 6 mm polyp was found in the sigmoid colon. Thepolyp was sessile. The polyp was removed with a coldsnare. Resection and retrieval were complete. A few small-mouthed diverticula were found in the right colon. Non-bleeding internal hemorrhoids were found during retroflexion. The hemorrhoids were small. Impression: - One 6 mm polyp in the sigmoid colon, removed witha cold snare. Resected and retrieved. - Diverticulosis in the right colon. - Non-bleeding internal hemorrhoids. Recommendation: - Repeat colonoscopy for surveillance based on pathology results. Dr Minh Norton MINH NORTON MD 01/08/2024 9:10:35 AM This report has been signed electronically. Number of Addenda: 0 Note Initiated On: 01/08/2024 8:27 AM Procedure Code(s): --- Professional --- 66550, Colonoscopy, flexible; with removal of tumor(s), polyp(s), or other lesion(s) by snare technique --- Technical --- 91543, Colonoscopy, flexible; with removal of tumor(s), polyp(s), or other lesion(s) by snare technique Diagnosis Code(s): --- Professional --- D12.5, Benign neoplasm of sigmoid colon K64.8, Other hemorrhoids K62.5, Hemorrhage of anus and rectum K62.89, Other specified diseases of anus andrectum K57.30, Diverticulosis of large intestine without perforation or abscess without bleeding --- Technical --- D12.5, Benign neoplasm of sigmoid colon K64.8, Other hemorrhoids K62.5, Hemorrhage of anus and rectum K62.89, Other specified diseases of anus andrectum K57.30, Diverticulosis of large intestine without perforation or abscess without bleeding CPT copyright 2021 [employer]. All rights reserved. The codes documented in this report are preliminary and upon registered veterinary technician reviewmay be revised to meet current compliance requirements. Procedure Date: 01/08/2024 8:27:[address] [place] [address] Blanca Pineda MD GI PROCEDURE ORDERABLES Final Result from Last 3 Months or Most Recently Relevant to Health Maintenance Insurance MEDICARE PART A & B [facility] MEDICARE REPLACEMENT [facility] MEDICARE PART A & B [facility] MEDICARE REPLACEMENT MEDICARE PART A & B Member Subscriber Plan / Payer (Ef fective 2018-Present) Name:Sarahi Henry Member ID:[id number] Relation to Subscriber:Self Name:Sarahi Henry Subscriber ID:[id number] Payer ID:[id number] Group ID:Not on file Type:Medicare Address: [place] [employer] [facility].[address] [address] [facility] MEDICARE REPLACEMENT MEDICARE PART A & B [facility] MEDICARE REPLACEMENT MEDICARE PART A & B MEDICARE REPLACEMENT MEDICARE PART A & B Member Subscriber Plan / Payer ( fective 2018-Present) Name:Sarahi Henry Member ID:[id number] Relation to Subscriber:Self Name:Sarahi Henry Subscriber ID:[id number] Payer ID:[id number] Group ID:Not on file Type:Medicare Address: [employer] [address] MEDICARE REPLACEMENT [place] [address] ([address] [address] MEDICARE PART A & B Member Subscriber Plan / Payer (Ef fective 2018-Present) Name:Sarahi Henry Member ID:[id number] Relation to Subscriber:Self Name:Sarahi Henry Subscriber ID:[id number] Payer ID:[id number] Group ID:Not on file Type:Medicare Address: [employer] 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 It is not the complete legal health record.[facility]
--- OUTSIDE RECORDS SUMMARY | 2025-05-26 16:00 | XMS_ITS | Encounter Summary ---
Author Organization [facility] Address [address] [facility] [address] [place] [address] Phone Care Team Providers Care Bartender Helper Name Role Phone Blanca Pineda MD Primary Care Provider Letitia Montejo MD Primary Care Prov ider Encounter Details Date Type Department Care Team (Late st Contact Info) Description 01/01/2024 Transcribe Orders [facility] Phleb Calista 10 [facility] 2nd [place] [address] Kym Bain PA 10 [place] [address] [email or web address] Rectal bleeding (Primary Dx); Family history of colon cancer Social History Tobacco Use Types Packs/Day Years [...] tries to control you? No 01/04/2024 Comments Unknown Sex and Gender Information Value Date Recorded Sex Assigned at Not on file Legal Sex Female 8:19 AM EDT Gender Identity Not on file Sexual Orientation Not on file documented as of this encounter Plan of Treatment Upcoming Encounters Date Type Department Care Team (Late st Contact Info) Description 05/13/2025 Procedure Pass [address] [address] 06/18/2025 7:05 AM EST Appointment [address] [address] Joseph Damian MD [address] [place] [address], [address] [place] [address] [email or web address] documented as of this encounter Results * Iron and iron binding capacity (01/01/2024 3:01 PM EDT) Pathologist [facility] IRON 45 30 - 160 ug/dL [facility] IRON BINDING CAPACITY 255 228 - 428 ug/dL [facility] TRANSFERRIN SATURAT. 18 15 - 50 % [facility] Blood 01/01/2024 3:01 PM EDT 01/01/2024 3:20 PM EDT Kym RUIZ LAB BLOOD BKR ORDERABLES Final Result [address] [address] * C-Reactive Protein (01/01/2024 3:01 PM EDT) C REACTIVE PROTEIN 4.0 0.0 - 4.0 mg/L [facility] Blood 01/01/2024 3:01 PM EDT 01/01/2024 3:20 PM EDT Kym RUIZ LAB BLOOD BKR ORDERABLES Final Result Performing Organization Address City/[facility]/ZIP Co de Phone Number [address] [address] * (ABNORMAL) Comprehensive metabolic panel (01/01/2024 3:01 PM EDT) SODIUM 139 133 - 146 mmol/L [facility] POTASSIUM 4.1 3.3 - 5.1 mmol/L [facility] CHLORIDE 103 96 - 108 mmol/L [facility] CO2 23 21 - 35 mmol/L [facility] BUN 16 6 - 19 mg/dL [facility] CREATININE 0.60 0.5 - 1.5 mg/dL [facility] GLUCOSE 84 70 - 99 mg/dL [facility] ALBUMIN 4.4 3.9 - 4.8 g/dL [facility] TOTAL PROTEIN 7.2 6.5 - 8.0 g/dL [facility] CALCIUM 9.8 8.4 - 10.3 mg/dL [facility] ALKALINE PHOSPHATASE 119(H) 39 - 117 U/L [facility] TOTAL BILIRUBIN 0.3 0.0 - 1.2 mg/dL [facility] AST 19 0 - 37 U/L [facility] ALT <5 0 - 40 U/L [facility] GLOBULIN 2.8 1 - 4.8 g/dL [facility] EGFR 98 >59 mL/min/1.7 3m2 [facility] Comment:Estimated glomerular filtration rate calculated using the CKD-EPI refit equation. ANION GAP 17 10 - 20 mmol/L [facility] Blood 01/01/2024 3:01 PM EDT 01/01/2024 3:20 PM EDT Kym RUIZ LAB BLOOD BKR ORDERABLES Final Result Performing Organization Address City/[facility]/ZIP Co de Phone Number [address] [address] * CBC (01/01/2024 3:01 PM EDT) Pathologist [facility] WBC 7.59 4.00 - 11.00 K/uL [facility] RBC 4.45 3.72 - 5.30 M/uL [facility] HGB 12.3 11.4 - 15.9 g/dL [facility] HCT 38.1 34.2 - 46.8 % [facility] PLT 323 140 - 430 K/uL [facility] MCV 85.6 78.0 - 97.0 fL [facility] MCH 27.6 25.0 - 33.0 pg [facility] MCHC 32.3 32.0 - 36.0 g/dL [facility] RDW 13.6 11.0 - 16.0 % [facility] MPV 10.2 8.4 - 12.8 [facility] Blood 01/01/2024 3:01 PM EDT 01/01/2024 3:20 PM EDT Kym RUIZ LAB BLOOD BKR ORDERABLES Final Result [address] [address] * Immunoglobulin A (01/01/2024 3:01 PM EDT) Pathologist [facility] IgA 80 70 - 400 mg/dL [facility] Blood 01/01/2024 3:01 PM EDT 01/01/2024 3:20 PM EDT Kym RUIZ LAB BLOOD BKR ORDERABLES Final Result [address] [address] * Tissue transglutaminase IgA (01/01/2024 3:01 PM EDT) Pathologist [facility] TTG IGA ANTIBODY <1.2 <4.0 (Negative) U/mL [facility] Blood 01/01/2024 3:01 PM EDT 01/02/2024 11:46 AM EDT Kym RUIZ LAB BLOOD BKR ORDERABLES Final Result Performing Organization Address [facility] Co de Phone Number [facility] [address] [place] [address] * Lipase (01/01/2024 3:01 PM EDT) LIPASE 42 16 - 63 U/L [facility] Blood 01/01/2024 3:01 PM EDT 01/01/2024 3:20 PM EDT Kym RUIZ LAB BLOOD BKR ORDERABLES Final Result Performing Organization Address [facility] de Phone Number [address] [address] * Amylase (01/01/2024 3:01 PM EDT) AMYLASE 59 28 - 100 U/L [facility] Blood 01/01/2024 3:01 PM EDT 01/01/2024 3:20 PM EDT Kym Bain AR LAB BLOOD BKR ORDERABLES Final Result Performing Organization Address [facility] Co de Phone Number [address] [address] documented in this encounter Visit Diagnoses Diagnosis Rectal bleeding- Primary Hemorrhage of rectum and anus Family history of colon cancer Family history of malignant neoplasm of gastrointestinal tract documented in this encounter Care Teams Bartender Helper Relationship Specialty Start Date End Date Blanca Pineda MD [address] [place] [address] PCP - General Internal Medicine 04/23/21 05/16/24 Letitia Montejo MD [address] [place] [address] [email or web address] PCP - General Family Medicine 05/17/24 documented as of this encounter Additional Source Comments The information contained in this document represents components of the legal health record. It is not the complete legal health record.[facility]
--- OUTSIDE RECORDS SUMMARY | 2025-05-26 16:01 | XMS_ITS ---
Author Name [facility]ISP Organization Unknown Encounters Encounter Type Encounter Reason Primary Diagnosis Location Date Inpatient ASTHMA COVID 19 UNSPECIFIED ASTH [place] WITH (ACUTE) EXACERBATION [facility]) 04/28/2022 Care Team Organization Name Specialty Phone Email Start Date End Da te [facility]) AREA DOCTOR Primary Care 05/05/2022 02/12/2024 [facility]) DOCTOR AREA Primary Care 04/28/2022 04/28/2022
--- OUTSIDE RECORDS SUMMARY | 2025-05-26 16:01 | XMS_ITS | Encounter Summary ---
Author Organization [facility] Address [address] [place], [place] [id number] Phone Care Team Providers Care Infectious Disease Physician Name Role Phone Blanca Pineda MD Primary Care Provider Letitia Montejo MD Primary Care Prov ider Reason for Referral * MRI/CAT Scan - Closed Specialty Diagnoses / Procedures Referred By Noah mcgarry Referred To Contact Radiology Diagnoses Abnormal weight loss Family history of pancreatic cancer Family history of colon cancer Procedures CT Abdomen/Pelvis CHG CT SCAN,ABDOMENT AND PELVIS,W CONTRAST Kym Bain PA [address] [place] [address] Phone: tel: fax: mailto:[email or web address] Referral ID Status Reason Start Date Expiration Date Visits Re quested Visits Authorized [id number] Closed 01/02/2024 05/04/2024 1 1 Encounter Details Date Type Department Care Team (Late st Contact Info) Description 01/02/2024 Transcribe Orders Virtual Department [address] [place] [address] Kym Bain PA [address] [place], [place] [id number] [email or web address] Abnormal weight loss (Primary Dx); Family history of pancreatic cancer; Family history of colon cancer Social History [...] st Contact Info) Description 05/13/2025 Procedure Pass [address] [address] 06/18/2025 7:05 AM EST Appointment [address] [address] Joseph Damian MD [address] [place] [address], [address] [place] [address] [email or web address] documented as of this encounter Results * CT ABDOMEN/PELVIS WITH CONTRAST (01/16/2024 9:11 AM EDT) Anatomical Region Laterality Modality Abdomen, Pelvis Computed Tomogra phy 01/18/2024 2:42 PM EDT Impressions 01/18/2024 2:49 PM EDT 1. No free intraperitoneal gas or fluid collection. 2. No biliary ductal dilatation, hydronephrosis or bowel obstruction. 3. Possible gallbladder polyp for which follow-up right upper quadrant ultrasound is recommended for more comprehensive evaluation. RECOMMENDATION: Right upper quadrant ultrasound follow-up. A clinically significant result was initiated on 01/18/2024 2:48 PM, Message ID [id number]. Narrative 01/18/2024 2:[address] ABDOMEN/PELVIS WITH CONTRAST Referring clinician's provided indication for this examination in Epic: Outside Radiology Order; weight loss TECHNIQUE: Multidetector-row CT of the abdomen and pelvis was performed after administration of intravenous contrast using tailored dose modulation techniques. Images were reconstructed in the axial, coronal, and sagittal planes. COMPARISON: None FINDINGS: Lower Chest: Mild atelectasis. Liver: No focal lesions. Biliary: No biliary ductal dilatation. Possible gallbladder polyp measures 6 mm (3:71 and 5:24), follow-up with right upper quadrant ultrasound recommended for more comprehensive evaluation. Spleen: No splenomegaly or focal lesions. Pancreas: No pancreatic ductal dilatation or peripancreatic inflammation. Adrenal Glands: No nodules. Kidneys/Ureters: No hydronephrosis or enhancing renal lesion. Bowel: No distention or wall thickening. No CT evidence for acute appendicitis. Peritoneum/Retroperitoneum: No free intraperitoneal gas or fluid collection. Lymph Nodes: No enlarged abdominal or pelvic lymph nodes. Pelvic Organs/Bladder: No mass. Vessels: No abdominal aortic aneurysm. Patent portal vein. Bones/Soft Tissues: No destructive bone lesion. Procedure Note Joseph Russ MD - 01/18/2024 CT ABDOMEN/PELVIS WITH CONTRAST Referring clinician's provided indication for this examination in Epic:Outside Radiology Order; weight loss TECHNIQUE: Multidetector-row CT of the abdomen and pelvis was performedafter administration of intravenous contrast using tailored dosemodulation techniques. Images were reconstructed in the axial, coronal,and sagittal planes. COMPARISON: None FINDINGS: Lower Chest: Mild atelectasis. Liver: No focal lesions. Biliary: No biliary ductal dilatation. Possible gallbladder polyp measures6 mm (3:71 and 5:24), follow-up with right upper quadrant ultrasoundrecommended for more comprehensive evaluation. Spleen: No splenomegaly or focal lesions. Pancreas: No pancreatic ductal dilatation or peripancreaticinflammation. Adrenal Glands: No nodules. Kidneys/Ureters: No hydronephrosis or enhancing renal lesion. Bowel: No distention or wall thickening. No CT evidence for acuteappendicitis. Peritoneum/Retroperitoneum: No free intraperitoneal gas or fluidcollection. Lymph Nodes: No enlarged abdominal or pelvic lymph nodes. Pelvic Organs/Bladder: No mass. Vessels: No abdominal aortic aneurysm. Patent portal vein. Bones/Soft Tissues: No destructive bone lesion. IMPRESSION: 1. No free intraperitoneal gas or fluid collection. 2. No biliary ductal dilatation, hydronephrosis or bowel obstruction. 3. Possible gallbladder polyp for which follow-up right upper quadrantultrasound is recommended for more comprehensive evaluation. RECOMMENDATION: Right upper quadrant ultrasound follow-up. A clinically significant result was initiated on 01/18/2024 2:48 PM,Message ID [id number]. Kym RUIZ IMG CT ABD/PELVIS Final Result documented in this encounter Visit Diagnoses Diagnosis Abnormal weight loss- Primary Loss of weight Family history of pancreatic cancer Family history of malignant neoplasm of gastrointestinal tract Family history of colon cancer Family history of malignant neoplasm of gastrointestinal tract Abnormal weight loss Loss of weight Family history of pancreatic cancer Family history of malignant neoplasm of gastrointestinal tract Family history of colon cancer Family history of malignant neoplasm of gastrointestinal tract documented in this encounter Care Teams Infectious Disease Physician Relationship Specialty Start Date End Date Blanca Pineda MD [address] [place] [address] PCP - General Internal Medicine 04/23/21 05/16/24 Letitia Montejo MD [address] [place] [address] PCP - General Family Medicine 05/17/24 documented as of this encounter Additional Source Comments The information contained in this document represents components of the legal health record. It is not the complete legal health record.[facility]
--- OUTSIDE RECORDS SUMMARY | 2025-05-26 16:01 | XMS_ITS | Encounter Summary ---
Author Organization [facility] Address [address] [facility] [address] [place] [address] Phone Care Team Providers Care Director Digital Advertising Name Role Phone Blanca Pineda MD Primary Care Provider [phone] Letitia Montejo MD Primary Care Prov ider Encounter Details Date Type Department Care Team (Late st Contact Info) Description 01/02/2024 Procedure Pass [facility], Ct Scan - [address] [address] Social History Tobacco Use Types Packs/Day Years Used Date Smoking Tobacco: Former Cigarettes 9 1969 Smokeless Tobacco: Never Alcohol Use Standard [...] st Contact Info) Description 05/13/2025 Procedure Pass [address] [address] 06/18/2025 7:05 AM EST Appointment [address] [address] Joseph Damian MD [address] [place] [address], [address] [place] [address] documented as of this encounter Visit Diagnoses Not on filedocumented in this encounter Care Teams Director Digital Advertising Relationship Specialty Start Date End Date Blanca Pineda MD [address] [place] [address] PCP - General Internal Medicine 04/23/21 05/16/24 Letitia Montejo MD [address] [place] [address] PCP - General Family Medicine 05/17/24 documented as of this encounter Additional Source Comments The information contained in this document represents components of the legal health record. It is not the complete legal health record.[facility]
--- OUTSIDE RECORDS SUMMARY | 2025-05-26 16:01 | XMS_ITS | Encounter Summary ---
Author Organization [facility] Address [address] [place], [place] [phone] Phone Care Team Providers Care Rn Acute Name Role Phone Blanca Pineda MD Primary Care Provider Letitia Montejo MD Primary Care Prov ider Reason for Referral * MRI/CAT Scan - Closed Specialty Diagnoses / Procedures Referred By Noah mcgarry Referred To Contact Radiology Diagnoses Memory loss Tremor Seizure Procedures MRI Brain CHG MRI BRAIN COMBO Joseph Damian MD Phone: tel: fax: [email or web address] Referral ID Status Reason Start Date Expiration Date Visits Re quested Visits Authorized [id number] Closed 02/24/2022 06/26/2022 1 1 Encounter Details Date Type Department Care Team (Latest Contact Info) Description 03/15/2022 Transcribe Orders Virtual Department [address] [place] [address] Joseph Damian MD [address] [place] [address], [address] [place], [place] [phone] [email or web address] Memory loss (Primary Dx); Tremor; Seizure Social History Tobacco Use Types Packs/Day Years Used Date Smoking Tobacco: Never Smokeless Tobacco: Never Alcohol Use Standard Drinks/Week Comments Not Currently 0 (1 standard drink = 0.6 oz pur e alcohol) Comments Unknown Sex and Gender Information Value Date Recorded Sex Assigned at Not on file Legal Sex Female 8:19 AM EDT Gender Identity Not on file Sexual Orientation Not on file documented as of this encounter Plan of Treatment Upcoming Encounters Date Type Department Care Team (Late st Contact Info) Description 05/13/2025 Procedure Pass [address] [address] 06/18/2025 7:05 AM EST Appointment [address] [address] Joseph Damian MD [address] [place] [address], [address] [place], [place] [id number] [email or web address] documented as of this encounter Results * MRI BRAIN WITH AND WITHOUT CONTRAST (03/31/2022 11:03 AM EDT) Anatomical Region Laterality Modality Head Magnetic Resonan ce 03/31/2022 7:57 PM EDT Impressions 04/01/2022 7:48 AM EDT No intracranial cause for the reported symptoms identified. Narrative 04/01/2022 7:48 AM EDT MRI BRAIN WITH AND WITHOUT CONTRAST TECHNIQUE: MRI BRAIN WITH AND WITHOUT CONTRAST Multi-sequence, multi-planar MRI of the brain was performed before and after intravenous contrast. COMPARISON: None FINDINGS: Brain Parenchyma: There is minimal scattered T2/FLAIR hyperintensity in the periventricular deep white matter which is nonspecific and can be seen in the setting of chronic small vessel disease. No evidence of acute infarct, mass lesion, or hemorrhage. Ventricular System and Extra-Axial Spaces: Normal. No evidence of midline shift or hydrocephalus. Extracranial Structures: Arterial flow voids in the skull base are present. Procedure Note Lui Monteiro MD - 04/01/2022 MRI BRAIN WITH AND WITHOUT CONTRAST TECHNIQUE: MRI BRAIN WITH AND WITHOUT CONTRAST Multi-sequence, multi-planar MRI of the brain was performed before andafter intravenous contrast. COMPARISON: None FINDINGS: Brain Parenchyma: There is minimal scattered T2/FLAIR hyperintensity inthe periventricular deep white matter which is nonspecific and can be seenin the setting of chronic small vessel disease. No evidence of acuteinfarct, mass lesion, or hemorrhage. Ventricular System and Extra-Axial Spaces: Normal. No evidence of midlineshift or hydrocephalus. Extracranial Structures: Arterial flow voids in the skull base arepresent. IMPRESSION: No intracranial cause for the reported symptoms identified. Joseph Damian MD IMG MR HEAD/NECK Final Resul t documented in this encounter Visit Diagnoses Diagnosis Memory loss- Primary Tremor Abnormal involuntary movements Seizure Other convulsions Memory loss Tremor Abnormal involuntary movements Seizure Other convulsions documented in this encounter Care Teams Rn Acute Relationship Specialty Start Date End Date Blanca Pineda MD [address] [place] [address] PCP - General Internal Medicine 04/23/21 05/16/24 Letitia Montejo MD [address] [place] [address] [email or web address] PCP - General Family Medicine 05/17/24 documented as of this encounter Additional Source Comments The information contained in this document represents components of the legal health record. It is not the complete legal health record.[facility]
--- OUTSIDE RECORDS SUMMARY | 2025-05-26 16:01 | XMS_ITS | Encounter Summary ---
Author Organization [facility] Address [address] [phone] Phone Care Team Providers Care Interlocking Installer Name Role Phone Letitia Montejo MD Primary Care Prov ider Reason for Referral * MRI/CAT Scan - New Request Specialty Diagnoses / Procedures Referred By Noah mcgarry Referred To Contact Radiology Diagnoses Neck pain Numbness Procedures MRI Cervical Spine Joseph Damian MD [address] [place] [address], [address] [place] [address] Phone: tel: fax: [email or web address] Referral ID Status Reason Start Date Expiration Date V isits Requested Visits Authorized [id number] New Request 05/13/2025 1 1 Encounter Details Date Type Department Care Team (Latest Contact Info) Description 05/13/2025 Transcribe Orders Virtual Department [address] [place] [address] Joseph Damian MD [address] [place] [address], [address] [place] [address] [email or web address] Neck pain (Primary Dx); Numbness Social History Tobacco Use Types Packs/Day Years Used Date Smoking Tobacco: Former Cigarettes 1 969 - 1969 Smokeless Tobacco: Never Alcohol Use Standard Drinks/Week Comments Never 0 [...] st Contact Info) Description 05/13/2025 Procedure Pass [address] [address] 06/18/2025 7:05 AM EST Appointment [address] [address] Joseph Damian MD [address] [place] [address], [address] [place] [address] [email or web address] Scheduled Orders Name Type Priority Associated Diagnoses Orde r Schedule MRI Cervical Spine Imaging Routine Neck pain Numbness Expected: 05/13/2025, Expires: 05/13/2026 documented as of this encounter Visit Diagnoses Diagnosis Neck pain- Primary Cervicalgia Numbness Disturbance of skin sensation documented in this encounter Care Teams Interlocking Installer Relationship Specialty Start Date End Date Letitia Montejo MD [address] [place] [address] [email or web address] PCP - General Family Medicine 05/17/24 documented as of this encounter Additional Source Comments The information contained in this document represents components of the legal health record. It is not the complete legal health record.[facility]
--- OUTSIDE RECORDS SUMMARY | 2025-05-26 16:01 | XMS_ITS | Encounter Summary ---
Author Organization [facility] Address [address] [facility] [address] [place] [address] Phone Care Team Providers Care Railcar Carpenter Name Role Phone Letitia Montejo MD Primary Care Prov ider Encounter Details Date Type Department Care Team (Late st Contact Info) Description 08/08/2024 Procedure Pass [facility] Endoscopy Admitting Dept Virtual Department [address] [place] [address] Social History Tobacco Use Types Packs/Day Years [...] st Contact Info) Description 05/13/2025 Procedure Pass [address] [address] 06/18/2025 7:05 AM EST Appointment [address] [address] Joseph Damian MD [address] [place] [address], [address] [place] [address] [email or web address] documented as of this encounter Visit Diagnoses Not on filedocumented in this encounter Care Teams Railcar Carpenter Relationship Specialty Start Date End Date Letitia Montejo MD [address] [place] [address] PCP - General Family Medicine 05/17/24 documented as of this encounter Additional Source Comments The information contained in this document represents components of the legal health record. It is not the complete legal health record.[facility]
--- OUTSIDE RECORDS SUMMARY | 2025-05-26 16:01 | XMS_ITS | Encounter Summary ---
Author Organization [facility] Address [address] [place] [address] Phone Care Team Providers Care Form Presser Name Role Phone Blanca Pineda MD Primary Care Provider [phone] Letitia Montejo MD Primary Care Prov ider Encounter Details Date Type Department Care Team (Late st Contact Info) Description 03/15/2022 Procedure Pass [address] [address] Social History Tobacco Use Types Packs/Day Years [...] st Contact Info) Description 05/13/2025 Procedure Pass [address] [address] 06/18/2025 7:05 AM EST Appointment [address] [address] Joseph Damian MD [address] [place] [address], [address] [place] [address] documented as of this encounter Visit Diagnoses Not on filedocumented in this encounter Care Teams Form Presser Relationship Specialty Start Date End Date Blanca Pineda MD [address] [place] [address] PCP - General Internal Medicine 04/23/21 05/16/24 Letitia Montejo MD [address] [place] [address] [email or web address] PCP - General Family Medicine 05/17/24 documented as of this encounter Additional Source Comments The information contained in this document represents components of the legal health record. It is not the complete legal health record.[facility]
--- OUTSIDE RECORDS SUMMARY | 2025-05-26 16:01 | XMS_ITS | Encounter Summary ---
Author Organization [facility] Address [address] [facility] [address] [place] [address] Phone Care Team Providers Care Senior Solutions Engineer Name Role Phone Letitia Montejo MD Primary Care Prov ider Encounter Details Date Type Department Care Team (Late st Contact Info) Description 05/27/2024 Procedure Pass OR Admitting Dept - Virtual Department [address] [place] [address] Social History Tobacco Use Types Packs/Day Years [...] Contact Info) Description 05/13/2025 Procedure Pass [address] [address] 06/18/2025 7:05 AM EST Appointment [address] [address] Joseph Damian MD [address] [place] [address], [address] [place] [address] [email or web address] documented as of this encounter Visit Diagnoses Not on filedocumented in this encounter Care Teams Senior Solutions Engineer Relationship Specialty Start Date End Date eLtitia Montejo MD [address] [place] [phone] PCP - General Family Medicine 05/17/24 documented as of this encounter Additional Source Comments The information contained in this document represents components of the legal health record. It is not the complete legal health record.[facility]
--- OUTSIDE RECORDS SUMMARY | 2025-05-26 16:01 | XMS_ITS | Encounter Summary ---
Author Organization [facility] Address [address] [place], [place] [phone] Phone Care Team Providers Care Civil Transportation Engineer Name Role Phone Blanca Pineda MD Primary Care Provider [phone] Letitia Montejo MD Primary Care Prov ider Reason for Referral * Outpatient Procedure - Closed Specialty Diagnoses / Procedures Referred By Noah [email or web address] Referred To Contact Radiology Diagnoses Weight loss Upper abdominal pain Procedures NM Gastric Emptying Kym Bain PA [address] [place] [address] Phone: tel: fax: [email or web address] Referral ID Status Reason Start Date Expiration Date Visits Re quested Visits Authorized [id number] Closed 02/16/2024 02/15/2025 1 1 Encounter Details Date Type Department Care Team (Late st Contact Info) Description 02/16/2024 Transcribe Orders Virtual Department [address] [place] [address] Kym Bain PA [address] [place] [phone] [email or web address] Weight loss (Primary Dx); Upper abdominal pain Social History Tobacco Use Types Packs/Day Years [...] st Contact Info) Description 05/13/2025 Procedure Pass [address] [address] 06/18/2025 7:05 AM EST Appointment [address] [address] Joseph Damian MD [address] [place] [address], [address] [place] [address] [email or web address] documented as of this encounter Results * NM GASTRIC EMPTYING SOLID PHASE (03/18/2024 12:44 PM EDT) Anatomical Region Laterality Modality Abdomen, Pelvis Nuclear Medicine 03/18/2024 12:5 0 PM EDT Impressions 03/18/2024 1:16 PM EDT Gastric emptying study within normal limits. However, note that gastric emptying is at the lower end of normal for the intermediary timepoint with additional findings possibly suggesting poor fundal accomodation. ATTESTATION: I, Bonnie Hamilton as teaching physician, have reviewed the images for this case and if necessary edited the report originally created by Joseph Olmstead. Narrative 03/18/2024 1:16 PM EDT NM GASTRIC EMPTYING SOLID PHASE Radionuclide gastric emptying scan: COMPARISON: No relevant prior comparison available. TECHNIQUE: A dose of 0.535 mCi technetium 99m sulfur colloid was given orally mixed with a standard meal. Intermittent upright imaging of the abdomen was performed immediately, and at 1 and 2 hours, and at 4 hours if indicated. 100% of the standardized meal was consumed. FINDINGS: Gastric emptying was: 1 hr: 7% 2 hrs: 41% 4 hrs: 95% According to accepted international standards using this technique, median normal values for emptying are: 31% at 1 hr, 76% at 2 hrs, and 99% at 4 hours. 5th percentile values for emptying are: 10% at 1 hr, 40% at 2 hrs, and 90% at 4 hours. These values apply for ingestion of 50% or greater of the standard meal (PMID: 68830702) and approximate the normative emptying values of [employer] (PMID: 53637409). The amount of radiotracer remaining within the fundus at the 2 hour images is slightly greater than expected, which may suggest poor fundal accomodation. Procedure Note Bonnie Hamilton MD - 03/18/2024 NM GASTRIC EMPTYING SOLID PHASE Radionuclide gastric emptying scan: COMPARISON: No relevant prior comparison available. TECHNIQUE: A dose of 0.535 mCi technetium 99m sulfur colloid was given orally mixedwith a standard meal. Intermittent upright imaging of the abdomen wasperformed immediately, and at 1 and 2 hours, and at 4 hours if indicated.100% of the standardized meal was consumed. FINDINGS: Gastric emptying was: 1 hr: 7% 2 hrs: 41% 4 hrs: 95% According to accepted international standards using this technique, mediannormal values for emptying are: 31% at 1 hr, 76% at 2 hrs, and 99% at 4 hours. 5th percentile values for emptying are: 10% at 1 hr, 40% at 2 hrs, and 90% at 4 hours. These values apply for ingestion of 50% or greater of the standard meal(PMID: 60334020) and approximate the normative emptying values of[facility] (PMID: [id number]). The amount of radiotracer remaining within the fundus at the 2 hour imagesis slightly greater than expected, which may suggest poor fundalaccomodation. IMPRESSION: Gastric emptying study within normal limits. However, note that gastricemptying is at the lower end of normal for the intermediary timepoint withadditional findings possibly suggesting poor fundal accomodation. ATTESTATION: I, Bonnie Hamilton as teaching physician, have reviewed theimages for this case and if necessary edited the report originally createdby Joseph Olmstead. Kym Bain PA IMG NM ABDOMEN Final Re sult documented in this encounter Visit Diagnoses Diagnosis Weight loss- Primary Loss of weight Upper abdominal pain Weight loss Loss of weight Upper abdominal pain documented in this encounter Care Teams Civil Transportation Engineer Relationship Specialty Start Date End Date Blanca Pineda MD [address] [place] [address] PCP - General Internal Medicine 04/23/21 05/16/24 Letitia Montejo MD [address] [place] [phone] [email or web address] PCP - General Family Medicine 05/17/24 documented as of this encounter Additional Source Comments The information contained in this document represents components of the legal health record. It is not the complete legal health record.[facility]
--- OUTSIDE RECORDS SUMMARY | 2025-05-26 16:01 | XMS_ITS | Encounter Summary ---
Author Organization [facility] Address [address] [facility] [address] [place] [address] Phone Care Team Providers Care Cooler Service Supervisor Name Role Phone Blanca Pineda MD Primary Care Provider [phone] Letitia Montejo MD Primary Care Prov ider Encounter Details Date Type Department Care Team (Late st Contact Info) Description 01/29/2024 Transcribe Orders Virtual Department [address] [place] [address] Kym Bain PA [address] [place] [address] [email or web address] Gallbladder polyp (Primary Dx) Social History Tobacco Use Types Packs/Day Years Used Date Smoking Tobacco: Former Cigarettes 1 969 - 1970 Smokeless Tobacco: Never Alcohol Use Standard Drinks/Week [...] st Contact Info) Description 05/13/2025 Procedure Pass [address] [address] 06/18/2025 7:05 AM EST Appointment [address] [address] Joseph Damian MD [address] [place] [address], [address] [place] [address] [email or web address] documented as of this encounter Results * US ABDOMEN LIMITED RIGHT UPPER QUADRANT (02/08/2024 1:19 PM EDT) MGB IMG RECOMMENDATION COMMENT 7 mm polyp versus focal adenomyomatosi s. Unknown gallbladder wall thickening. [facility] Anatomical Region Laterality Modality Abdomen Ultrasound 02/08/2024 3:57 PM EDT Impressions 02/08/2024 4:42 PM EDT 1. Echogenic focus in the anterior gallbladder with possible comet tail artifact measuring approximately 7 mm, may represent a polyp or focal adenomyomatosis. It is difficult to definitively determine associated gallbladder wall thickening. A follow-up ultrasound in 6-7 months is recommended. 2. Echogenic focus in the posterior gallbladder with posterior acoustic shadowing, likely representing a gallstone. 3. Additional small polypoid focus in the gallbladder measuring 3 mm. Follow-up recommendations were communicated and documented using a closed loop communication system. Narrative 02/08/2024 4:42 PM EDT US ABDOMEN LIMITED RIGHT UPPER QUADRANT Referring clinician's provided indication for this examination in [facility]: Outside Radiology Order; polyp of gallbladder TECHNIQUE: US Abdominal limited right upper quadrant. COMPARISON: CT ABDOMEN/PELVIS WITH CONTRAST FINDINGS: Liver: No focal lesions. Main Portal Vein: Patent with normal direction of flow. Gallbladder: There is an echogenic focus in the anterior wall of the gallbladder with possible comet-tail artifact measuring approximately 7 mm, may represent a polyp or focal adenomyomatosis. It is difficult to definitively determine associated gallbladder wall thickening. There is likely an additional polyp at the fundus measuring 3 mm. There is also an echogenic focus in the posterior gallbladder with distal acoustic shadowing measuring 8 mm, likely representing a gallstone. Grant's Sign: Negative. Biliary: No intrahepatic or extrahepatic biliary ductal dilatation. The common bile duct measures 3 mm. Right Kidney: Right kidney measures 9.7 cm. No stones or hydronephrosis. Pancreas: Partially obscured pancreas due to overlying bowel gas. The imaged portion of the pancreas is unremarkable. Procedure Note Yadira Fong MD - 02/08/2024 US ABDOMEN LIMITED RIGHT UPPER QUADRANT Referring clinician's provided indication for this examination in [facility]:Outside Radiology Order; polyp of gallbladder TECHNIQUE: US Abdominal limited right upper quadrant. COMPARISON: CT ABDOMEN/PELVIS WITH CONTRAST FINDINGS: Liver: No focal lesions. Main Portal Vein: Patent with normal direction of flow. Gallbladder: There is an echogenic focus in the anterior wall of thegallbladder with possible comet-tail artifact measuring approximately 7mm, may represent a polyp or focal adenomyomatosis. It is difficult todefinitively determine associated gallbladder wall thickening. There islikely an additional polyp at the fundus measuring 3 mm. There is also anechogenic focus in the posterior gallbladder with distal acousticshadowing measuring 8 mm, likely representing a gallstone. Grant's Sign: Negative. Biliary: No intrahepatic or extrahepatic biliary ductal dilatation. The common bile duct measures 3 mm. Right Kidney: Right kidney measures 9.7 cm. No stones or hydronephrosis. Pancreas: Partially obscured pancreas due to overlying bowel gas. Theimaged portion of the pancreas is unremarkable. IMPRESSION: 1. Echogenic focus in the anterior gallbladder with possible comet tailartifact measuring approximately 7 mm, may represent a polyp or focaladenomyomatosis. It is difficult to definitively determine associatedgallbladder wall thickening. A follow-up ultrasound in 6-7 months isrecommended. 2. Echogenic focus in the posterior gallbladder with posterior acousticshadowing, likely representing a gallstone. 3. Additional small polypoid focus in the gallbladder measuring 3 mm. Follow-up recommendations were communicated and documented using a closedloop communication system. us Kym RUIZ IMG US ABDOMEN Final Re sult documented in this encounter Visit Diagnoses Diagnosis Gallbladder polyp- Primary Cholesterolosis of gallbladder Gallbladder polyp Cholesterolosis of gallbladder documented in this encounter Care Teams Cooler Service Supervisor Relationship Specialty Start Date End Date Blanca Pineda MD [address] [place] [address] PCP - General Internal Medicine 04/23/21 05/16/24 Letitia Montejo MD [address] [place] [phone] PCP - General Family Medicine 05/17/24 documented as of this encounter Additional Source Comments The information contained in this document represents components of the legal health record. It is not the complete legal health record.[facility]
--- OUTSIDE RECORDS SUMMARY | 2025-05-26 16:02 | XMS_ITS | Clinical Summary ---
Author Organization [facility] Address [address] [place] [address] Phone Care Team Providers Care Lead Principal Technical Architect Name Role Phone Josr Montejo MD Primary Care Provi jeffrey Allergies No known active allergies Medications albuterol HFA (PROAIR HFA ; PROVENTIL HFA ; VENTOLIN HFA) 90 mcg/actuation inhaler Inhale 2 puffs by mouth every 4 (four) hours if needed for wheezing or shortness of breath. 5 Active calcium carbonate-vitamin D 600 mg-10 mcg (400 unit) per tablet Take 1 tablet by mouth 2 (two) times a day. 5 Active carbidopa-levodop a (SINEMET) 25-100 mg per tablet Take 1 tablet by mouth 3 (three) times a day. Active FLUoxetine (PROzac) 20 mg capsule Take 1 capsule (20 mg total) by mouth 2 (two) times a day. 3 Active loratadine (CLARITIN) 10 mg tablet Take 1 tablet (10 mg total) by mouth daily. 2 Active mirtazapine (REMERON) 15 mg tablet Take 1 tablet (15 mg total) by mouth at bedtime. 5 Active montelukast (SINGULAIR) 10 mg tablet Take 1 tablet (10 mg total) by mouth 1 (one) time each day. Active Xolair 150 mg/mL syringe subcutaneous syringe Inject 1 mL (150 mg total) under the skin every 28 (twenty-eight) days. 3 Active omeprazole (PriLOSEC) [address] capsule Take 1 capsule (40 mg total) by mouth 1 (one) time each day. 5 Active piroxicam (FELDENE) 20 mg capsule Take 1 capsule (20 mg total) by mouth 1 (one) time each day. 5 Active predniSONE (DELTASONE) 10 mg tablet Take 1 tablet (10 mg total) by mouth 2 (two) times a day. 5 Active predniSONE (DELTASONE) 20 mg tablet Take 2 tablets (40 mg total) by mouth 1 (one) time each day for 5 days. 10 each 5 05/26/20 25 Active guaiFENesin (ROBITUSSIN) 100 mg/5 mL liquid Take 10 mL (200 mg total) by mouth 3 (three) times a day if needed for cough for up to 5 days. 60 mL 5 05/26/20 25 Active Active Problems Problem Noted Date Diagnosed Date Exacerbation of asthma, unsp ecified asthma severity, unspecified whether persistent 05/20/2025 Asthma 05/19/2025 Encounters Date Type Department Care Team Description 05/19/2025 3:00 PM EST - 05/21/2025 1:47 PM EST Hospital Encounter [facility] Unit [address] [place] [id number] Wesley Mercedes MD Bukalo, Nermina, MD Alam, Aroosa, MD Exacerbation of asthma, unspecified asthma severity, unspecified whether persistent (Primary Dx) Discharge Disposition: Home or Self Care from Last 3 Months Surgical History Surgery Date Site/Laterality Comments OTHER SURGICAL HISTORY PROCEDURE: MN EXC CYST/ABERRANT BREAST TISSUE OPEN 1/> LESION; COMMENT: times two- benign lesions OVARIAN CYST REMOVAL PROCEDURE: MN OVARIAN CYSTECTOMY UNI/BI HYSTERECTOMY PROCEDURE: HISTORICAL VAGINAL HYSTERECTOMY W/O BSO TUBAL LIGATION PROCEDURE: HISTORICAL TUBAL LIGATION TONSILLECTOMY PROCEDURE: HISTORICAL TONSILLECTOMY; COMMENT: adenoidectomy BREAST BIOPSY sping of 2016 Right PROCEDURE: BX BREAST; PERC NEEDLE CORE W/IMAG GUID; COMMENT: b9 BREAST BIOPSY 2016 Left PROCEDURE: BX BREAST; PERC NEEDLE CORE W/IMAG GUID; 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: 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 BREAST SURGERY Bilateral PROCEDURE: MN UNLISTED PROCEDURE BREAST; COMMENT: needle aspiratons COLONOSCOPY 02/15/08 PROCEDURE: HISTORICAL COLONOSCOPY; COMMENT: normal; repeat in ten years OTHER SURGICAL HISTORY 03/30/2018 PROCEDURE: COLON CA SCRN NOT HI RSK IND; COMMENT: normal; repeat in 10 yrs Medical History Medical History Date Comments Depressive disorder, not els ewhere classified DX:Depressive disorder, not elsewhere classified Other and unspecified ovarian cyst DX:Other and unspecified ovarian cyst Lump or mass in breast DX:Lump o r mass in breast Unspecified asthma(493.90) DX:Un specified asthma(493.90) Osteoporosis 03/15/2010 DX:Osteoporosis Conjunctivitis 08/23/2012 DX:Conjunctiviti s Asthma DX:Asthma Thyroid nodule 08/2016 DX:Thyroid nodul e; COMMENT: need repeat bx in 3 mo Elevated BP without diagnosi s of hypertension 05/07/2018 DX:Elevated BP without diagn osis of hypertension Essential hypertension 06/12/2018 DX:Essent ial hypertension Family History Medical History Relation Name Comments Breast cancer Aunt maternal Asthma Brother 1 Schizophrenia Brother 1 Colon cancer Brother 2 Heart attack Father age 65 Other: well Maternal Grandmother Diabetes Mother Heart attack Mother Pancreatic cancer Mother Other: thyroid cancer Sister 1 72 Mental illness Sister 2 depression x3 Heart attack Son Relation Name Status Comments Aunt Brother 1 Alive Brother 2 (Age 68) Daughter 1 Alive depression Daughter 2 Alive Father DM and heart pr oblems Maternal Grandmother Mother Sister 1 Alive Sister 2 Son Social History Tobacco Use Types Packs/Day Years [...] PM EST Sexual Orientation Not on file Obstetrics History Last Filed Vital Signs Vital Sign Reading Time Taken Comments Blood Pressure 130/73 05/21/2025 1:00 PM EST Pulse 84 05/21/2025 1:00 PM EST Temperature 36.9 C (98.4 F) 05/21/2025 1:00 PM EST Respiratory Rate 18 05/21/2025 1:00 PM EST Oxygen Saturation 95% 05/21/2025 1:00 PM EST Inhaled Oxygen Concentration - - Weight 69.4 kg (153 lb) 10/12/2021 10:56 AM EDT Height 154.9 cm (5' 1 ) 10/12/2021 10:56 AM EDT Body Mass Index 28.91 10/12/2021 10:56 AM EDT Plan of Treatment Health Maintenance Due Date Last Done Comments RSV Immunization Adult Patients (1 - Risk 50-74 years 1-dose series) 2005 Breast Cancer Screening 04/20/2023 04/20/20 21, 04/10/2020, 04/05/2019, Additional history exists Depression Screening 06/26/2024 COVID-19 Vaccine ( season) 2025 07/06/2022, 05/12/2021, 09/11/2020, Additional history exists Influenza Vaccine (#1) 2025 , 04/06/2023, 06/03/2022, Additional history exists Cholesterol Screening (Lipid Panel) 05/19/2025 Medicare Annual Wellness Visit 05/19/2025 Social Influencers of Health Screening 05/19/2025 Colorectal Cancer Screening: Stool Based Tests (FOBT/FIT) 07/04/2025 07/04/2024 Osteoporosis Screening (Bone Density Screening) 03/21/2026 03/21/2025, 05/21/2019 Hypertension/CHF/CAD Annual BMP Blood Test 05/20/2026 05/20/2025, 05/19/2025, 07/11/2024, Additional history exists Falls Risk Assessment 05/21/2026 05/21/2025 DTaP,Tdap,and Td Vaccines (2 - Td or Tdap) 11/30/2027 11/29/2017 Zoster Vaccines Completed 05/01/2020, 02/18/2020 Hepatitis C Screening Completed 07/11/2024 Pneumococcal Vaccine: 50+ Years Completed 01/14/2025, 10/12/2021 HIB Vaccines Aged Out No longer eligi ble based on patient's age to complete this topic HPV Vaccines Aged Out No longer eligi ble based on patient's age to complete this topic Hepatitis A Vaccines Aged Out No long er eligible based on patient's age to complete this topic Hepatitis B Vaccines Aged Out No long er eligible based on patient's age to complete this topic IPV Vaccines Aged Out No longer eligi ble based on patient's age to complete this topic MMR Vaccines Aged Out No longer eligi ble based on patient's age to complete this topic Meningococcal ACWY Vaccine Aged Out N o longer eligible based on patient's age to complete this topic Meningococcal B Vaccine Aged Out No l onger eligible based on patient's age to complete this topic RSV Immunization Patients Under 20 months Aged Out No longer eligible based on patient's age to complete this topic Varicella Vaccines Aged Out No longer eligible based on patient's age to complete this topic Procedures Procedure Name Priority Date/Time Associated Diagnosis Comments COMPLETE BLOOD COUNT Routine 05/20/2025 5:50 AM EST BASIC METABOLIC PANEL Routine 05/20/2025 5:50 AM EST ECG ANNOTATED 05/20/2025 RESPIRATORY VIRUS PANEL MOLECULAR STUDY STAT 05/19/2025 6:20 PM EST ECG 12-LEAD STAT 05/19/2025 3:53 PM EST XR CHEST 1 VIEW STAT 05/19/2025 3:35 PM EST D-DIMER STAT 05/19/2025 3:30 PM EST CBC WITH AUTO DIFFERENTIAL STAT 05/19/2025 3:30 PM EST VENOUS BLOOD GAS STAT 05/19/2025 3:30 PM EST ACTIVATED PARTIAL THROMBOPLASTIN TIME STAT 05/19/2025 3:30 PM EST PROTHROMBIN TIME WITH INR STAT 05/19/2025 3:30 PM EST CBC AND DIFFERENTIAL STAT 05/19/2025 3:30 PM EST TROPONIN I HIGH SENSITIVITY STAT 05/19/2025 3:30 PM EST MAGNESIUM STAT 05/19/2025 3:30 PM EST COMPREHENSIVE METABOLIC PANEL STAT 05/19/2025 3:30 PM EST B-TYPE NATRIURETIC PEPTIDE STAT 05/19/2025 3:30 PM EST MN CRITICAL CARE 30-74 MINUTES Routine 05/19/2025 2:57 PM EST SCREENING MAMMOGRAPHY BI 2-VIEW BREAST INC CAD Routine 04/20/2021 1:15 PM EDT Encounter for screening mammogram for malignant neoplasm of breast DXA BONE DENSITY STUDY 1+ SITS AXIAL SKEL Routine 05/21/2019 4:07 PM EST Age-related osteoporosis without current pathological fracture from Last 3 Months or Most Recently Relevant to Health Maintenance Results * Complete blood count (05/20/2025 5:50 AM EST) WBC 8.8 4.8 - 10.8 K/mcL LAB HEMETOLOGY METHOD 05/20/2025 6:37 AM [facility] RBC 4.30 3.80 - 4.80 M/mcL LAB HEMETOLOGY METHOD 05/20/2025 6:37 AM [facility] Hemoglobin 12.0 11.5 - 16.0 g/dL LAB HEMETOLOGY METHOD 05/20/2025 6:37 AM [facility] Hematocrit 35.9 35.0 - 47.0 % LAB HEMETOLOGY METHOD 05/20/2025 6:37 AM [facility] MCV 83.5 79.0 - 98.0 FL LAB HEMETOLOGY METHOD 05/20/2025 6:37 AM [facility] MCH 27.9 27.0 - 32.0 pcg LAB HEMETOLOGY METHOD 05/20/2025 6:37 AM EST [facility] MCHC 33.4 32.0 - 37.0 g/dL LAB HEMETOLOGY METHOD 05/20/2025 6:37 AM EST [facility] RDW 13.8 11.0 - 15.0 % LAB HEMETOLOGY METHOD 05/20/2025 6:37 AM [facility] Platelets 368 130 - 400 K/mcL LAB HEMETOLOGY METHOD 05/20/2025 6:37 AM [facility] MPV 10.0 7.0 - 11.0 FL LAB HEMETOLOGY METHOD 05/20/2025 6:37 AM [facility] NRBC 0.0 <1.0 % LAB HEMETOLOGY METHOD 05/20/2025 6:37 AM [facility] NRBC Absolute 0.00 <0.10 K/mcL LAB HEMETOLOGY METHOD 05/20/2025 6:37 AM [facility] Blood Venous blood specimen / Unknown Venipuncture / Unknown 05/20/2025 5:50 AM EST 05/20/2025 6:25 AM EST us Juventino Nolan MD LAB BLOOD ORDERABLES Final Res ult [facility] [address] [place] [address], * (ABNORMAL) Basic metabolic panel (05/20/2025 5:50 AM EST) Sodium 142 133 - 145 mmol/L 05/20/2025 7:11 AM [facility] Potassium 4.6 3.5 - 5.5 mmol/L 05/20/2025 7:11 AM [facility] Chloride 106 96 - 110 mmol/L 05/20/2025 7:11 AM [facility] CO2 22 21 - 32 mmol/L 05/20/2025 7:11 AM [facility] Anion Gap 14(H) 3 - 11 05/20/2025 7:11 AM [facility] Glucose 125(H) 70 - 100 mg/dL 05/20/2025 7:11 AM [facility] BUN 14 5 - 25 mg/dL 05/20/2025 7:11 AM [facility] Creatinine 0.72 0.50 - 1.10 mg/dL 05/20/2025 7:11 AM [facility] eGFR 90 >=60 mL/min/1. 73m2 05/20/2025 7:11 AM [facility] Comment:Calculation based on the Chronic Kidney Disease Epidemiology Collaboration (CKD-EPI) equation refit without adjustment for race. BUN/Creatinine Ratio 19.4 05/20/2025 7:11 AM [facility] Calcium 9.5 8.5 - 10.5 mg/dL 05/20/2025 7:11 AM [facility] Blood Venous blood specimen / Unknown Venipuncture / Unknown 05/20/2025 5:50 AM EST 05/20/2025 6:25 AM EST us Juventino Nolan MD LAB BLOOD ORDERABLES Final Res ult [facility] [address] [place] [address], * ECG-Annotated (05/20/2025) us Provider Onbase ECG ORDERABLES Final Result * (ABNORMAL) Respiratory virus panel molecular study (05/19/2025 6:20 PM EST) Adenovirus Detection by PCR Not Detected Not Detected LAB MICROBIOLOGY METHOD 05/19/2025 7:19 PM [facility] Influenza A PCR Not Detected Not Detected LAB MICROBIOLOGY METHOD 05/19/2025 7:19 PM [facility] Influenza B PCR Not Detected Not Detected LAB MICROBIOLOGY METHOD 05/19/2025 7:19 PM [facility] Coronavirus 229E Not Detected Not Detected LAB MICROBIOLOGY METHOD 05/19/2025 7:19 PM [facility] Coronavirus HKU1 Not Detected Not Detected LAB MICROBIOLOGY METHOD 05/19/2025 7:19 PM [facility] Coronavirus OC43 Not Detected Not Detected LAB MICROBIOLOGY METHOD 05/19/2025 7:19 PM [facility] Coronavirus NL63 Not Detected Not Detected LAB MICROBIOLOGY METHOD 05/19/2025 7:19 PM [facility] Parainfluenza Virus 1 Not Detected Not Detected LAB MICROBIOLOGY METHOD 05/19/2025 7:19 PM [facility] Parainfluenza Virus 2 Not Detected Not Detected LAB MICROBIOLOGY METHOD 05/19/2025 7:19 PM [facility] Parainfluenza Virus 3 Not Detected Not Detected LAB MICROBIOLOGY METHOD 05/19/2025 7:19 PM [facility] Parainfluenza Virus 4 Not Detected Not Detected LAB MICROBIOLOGY METHOD 05/19/2025 7:19 PM [facility] RSV PCR Not Detected Not Detected LAB MICROBIOLOGY METHOD 05/19/2025 7:19 PM [facility] Human Metapneumovirus A and B Not Detected Not Detected LAB MICROBIOLOGY METHOD 05/19/2025 7:19 PM [facility] Rhinovirus/Entero virus Detected(A ) Not Detected LAB MICROBIOLOGY METHOD 05/19/2025 7:19 PM [facility] Bordetella pertussis Not Detected Not Detected LAB MICROBIOLOGY METHOD 05/19/2025 7:19 PM [facility] Bordetella parapertussis Not Detected Not Detected LAB MICROBIOLOGY METHOD 05/19/2025 7:19 PM EST [facility] Mycoplasma pneumo by PCR Not Detected Not Detected LAB MICROBIOLOGY METHOD 05/19/2025 7:19 PM EST [facility] Chlamydia pneumoniae Not Detected Not Detected LAB MICROBIOLOGY METHOD 05/19/2025 7:19 PM [facility] SARS COV-2 Not Detected Not Detected LAB MICROBIOLOGY METHOD 05/19/2025 7:19 PM EST [facility] Swab Both anterior nares / Unknown Non-blood Collection / Unknown 05/19/2025 6:20 PM EST 05/19/2025 6:26 PM EST [facility] - 05/19/2025 7:19 PM EST Testing was performed using the Immunetrics Respiratory Pathogen PCR Assay. All results must [...] MICROBIOLOGY - GENER AL ORDERABLES Final Result [facility] [address] [place] [address], * 12-Lead ECG (05/19/2025 3:53 PM EST) Ventricular Rate ECG 99 BPM GEMUSE Atrial Rate 99 BPM GEMUSE P-R Interval 136 ms GEMUSE QRS Duration 80 ms GEMUSE Q-T Interval 330 ms GEMUSE QTc 423 ms GEMUSE P Wave Tabor 39 degrees GEMUSE R Tabor -10 degrees GEMUSE T Tabor 10 degrees GEMUSE ECG Interpretation Normal sinus rhythm Nonspecific ST and T wave abnormality Abnormal ECG No previous ECGs available Confirmed by Jennifer ALSTON JOHN ([id number]) on 05/20/2025 5:06:11 PM GEMUSE 05/19/2025 3:53 [...] clips. -------- FINAL REPORT -------- Dictated By: AMINAH RUTH Dictated Date: 05/19/2025 16:15 ET Assigned Physician: AMINAH RUTH Reviewed and Electronically Signed By: AMINAH RUTH Signed Date: 05/19/2025 16:15 ET Workstation ID: [id number] Transcribed By: Self Edit Transcribed Date: 05/19/2025 16:15 ET Narrative 05/19/2025 4:15 PM EST XR CHEST 1 VIEW INDICATION: Shortness of breath TECHNIQUE: XR CHEST 1 VIEW COMPARISON: No priors available. Procedure Note Aminah Ruth MD - 05/19/2025 XR CHEST 1 VIEW INDICATION: Shortness of breath TECHNIQUE: XR CHEST 1 VIEW COMPARISON: No priors available. IMPRESSION: FINDINGS/IMPRESSION: No pneumonia or pulmonary edema. Right diaphragmaticeventration. No pleural effusion or pneumothorax. Cardiac silhouette isnormal in size. Bones are normal. Cholecystectomy clips. -------- FINAL REPORT -------- Dictated By: AMINAH RUTH Dictated Date: 05/19/2025 16:15 ET Assigned Physician: AMINAH RUTH Reviewed and Electronically Signed By: AMINAH RUTH Signed Date: 05/19/2025 16:15 ET Workstation ID: [id number] Transcribed By: Self Edit Transcribed Date: 05/19/2025 16:15 ET Wesley Mercedes MD IMG XR PROCEDURES Final Result * Troponin I High Sensitivity (05/19/2025 3:30 PM EST) [facility] High Sensitivity Troponin I <3 <=34 ng/L 05/19/2025 4:23 PM [facility] Blood Venous blood specimen / Unknown Venipuncture / Unknown 05/19/2025 3:30 PM EST 05/19/2025 3:55 PM EST Wesley Mercedes MD LAB BLOOD ORDERABLES Final Resul t [facility] [address] [place] [address], [place] [phone] * (ABNORMAL) CBC auto differential (05/19/2025 3:30 PM EST) [facility] WBC 7.9 4.8 - 10.8 K/mcL LAB HEMETOLOGY METHOD 05/19/2025 4:01 PM [facility] RBC 4.70 3.80 - 4.80 M/mcL LAB HEMETOLOGY METHOD 05/19/2025 4:01 PM [facility] Hemoglobin 13.0 11.5 - 16.0 g/dL LAB HEMETOLOGY METHOD 05/19/2025 4:01 PM [facility] Hematocrit 39.1 35.0 - 47.0 % LAB HEMETOLOGY METHOD 05/19/2025 4:01 PM [facility] MCV 83.2 79.0 - 98.0 FL LAB HEMETOLOGY METHOD 05/19/2025 4:01 PM [facility] MCH 27.7 27.0 - 32.0 pcg LAB HEMETOLOGY METHOD 05/19/2025 4:01 PM [facility] MCHC 33.2 32.0 - 37.0 g/dL LAB HEMETOLOGY METHOD 05/19/2025 4:01 PM [facility] RDW 13.4 11.0 - 15.0 % LAB HEMETOLOGY METHOD 05/19/2025 4:01 PM [facility] Platelets 371 130 - 400 K/mcL LAB HEMETOLOGY METHOD 05/19/2025 4:01 PM [facility] MPV 9.8 7.0 - 11.0 FL LAB HEMETOLOGY METHOD 05/19/2025 4:01 PM [facility] NRBC 0.0 <1.0 % LAB HEMETOLOGY METHOD 05/19/2025 4:01 PM [facility] NRBC Absolute 0.00 <0.10 K/mcL LAB HEMETOLOGY METHOD 05/19/2025 4:01 PM [facility] Neutrophils Relative 78.0 % LAB HEMETOLOGY METHOD 05/19/2025 4:01 PM [facility] Lymphocytes Relative 20.4 % LAB HEMETOLOGY METHOD 05/19/2025 4:01 PM [facility] Monocytes Relative 1.0 % LAB HEMETOLOGY METHOD 05/19/2025 4:01 PM [facility] Eosinophils Relative 0.0 % LAB HEMETOLOGY METHOD 05/19/2025 4:01 PM [facility] Basophils Relative 0.1 % LAB HEMETOLOGY METHOD 05/19/2025 4:01 PM [facility] Immature Granulocytes Relative 0.5 % LAB HEMETOLOGY METHOD 05/19/2025 4:01 PM [facility] Neutrophils Absolute 6.19 1.50 - 7.00 K/mcL LAB HEMETOLOGY METHOD 05/19/2025 4:01 PM [facility] Lymphocytes Absolute 1.62 1.00 - 5.00 K/mcL LAB HEMETOLOGY METHOD 05/19/2025 4:01 PM [facility] Monocytes Absolute 0.08(L) 0.20 - 1.00 K/[facility] LAB HEMETOLOGY METHOD 05/19/2025 4:01 PM EST [facility] Eosinophils Absolute 0.00 0.00 - 0.50 K/[facility] LAB HEMETOLOGY METHOD 05/19/2025 4:01 PM EST [facility] Basophils Absolute 0.01 0.00 - 0.20 K/[facility] LAB HEMETOLOGY METHOD 05/19/2025 4:01 PM EST [facility] Immature Granulocytes Absolute 0.04(H) 0.00 - 0.03 K/[facility] LAB HEMETOLOGY METHOD 05/19/2025 4:01 PM [facility] Blood Venous blood specimen / Unknown Venipuncture / Unknown 05/19/2025 3:30 PM EST 05/19/2025 3:55 PM EST us Wesley Mercedes MD LAB BLOOD ORDERABLES Final Resul t Performing Organization Address City/[facility]/ZIP Co de Phone Number [facility] [address] [place] [address], [place] [phone] * APTT (05/19/2025 3:30 PM EST) [facility] aPTT 30.6 24.1 - 39.3 sec LAB COAGULATION METHOD 05/19/2025 4:12 PM EST [facility] Blood Venous blood specimen / Unknown Venipuncture / Unknown 05/19/2025 3:30 PM EST 05/19/2025 3:55 PM EST us Wesley Mercedes MD LAB BLOOD ORDERABLES Final Resul t [facility] [address] [place] [address], [place] [phone] * Protime-INR (05/19/2025 3:30 PM EST) Protime 10.8 10.6 - 13.9 sec LAB COAGULATION METHOD 05/19/2025 4:12 PM EST [facility] INR 0.9 LAB COAGULATION METHOD 05/19/2025 4:12 PM EST [facility] Blood Venous blood specimen / Unknown Venipuncture / Unknown 05/19/2025 3:30 PM EST 05/19/2025 3:55 PM EST us Wesley Mercedes MD LAB BLOOD ORDERABLES Final Resul t Performing Organization Address [facility] Co de Phone Number [facility] [address] [place] [address], [place] [phone] * D-Dimer (Quantitative) (05/19/2025 3:30 PM EST) [facility] D-Dimer, Quant (D-DU) <150 <=230 ng/mL DDU LAB COAGULATION METHOD 05/19/2025 4:19 PM EST [facility] Blood Venous blood specimen / Unknown Venipuncture / Unknown 05/19/2025 3:30 PM EST 05/19/2025 3:55 PM EST Narrative [facility] - 05/19/2025 4:19 PM EST D-Dimer <230 ng/mL (D-Dimer units) is the threshold for exclusion of DVT/PE. D-Dimer may be elevated in: Critically ill, severely infected, trauma patients, DIC, acute CVA, acute AR, unstable angina, AF, old age, , and smoking. D-Dimer may be decreased with: Initiation of heparin therapy and oral anticoagulants. us Wesley Mercedes MD LAB BLOOD ORDERABLES Final Resul t Performing Organization Address [facility]/ZIP Co de Phone Number [facility] [address] [place] [address], [place] [phone] * B-Type Natriuretic Peptide (BNP) (05/19/2025 3:30 PM EST) Pathologist [facility] BNP 37 <=100 pcg/mL 05/19/2025 4:22 PM EST [facility] Blood Venous blood specimen / Unknown Venipuncture / Unknown 05/19/2025 3:30 PM EST 05/19/2025 3:55 PM EST Narrative [facility] - 05/19/2025 4:22 PM EST Over the counter supplements containing high doses of biotin may interfere with this assay. If interference is suspected, patients shoud be retested after refraining from biotin supplements for 72 hours. us Wesley Mercedes MD LAB BLOOD ORDERABLES Final Resul t Performing Organization Address City/[facility]/ZIP Co de Phone Number [facility] [address] [place] [address], [place] [phone] * Magnesium (05/19/2025 3:30 PM EST) Magnesium 2.6 1.9 - 2.6 mg/dL 05/19/2025 4:49 PM EST [facility] Blood Venous blood specimen / Unknown Venipuncture / Unknown 05/19/2025 3:30 PM EST 05/19/2025 3:55 PM EST us Wesley Mercedes MD LAB BLOOD ORDERABLES Final Resul t [facility] [address] [place] [address], [place] [phone] * (ABNORMAL) Venous blood gas (05/19/2025 3:30 PM EST) pH, Damir 7.44(H) 7.32 - 7.42 pH 05/19/2025 3:58 PM EST [facility] pCO2, Damir 28(L) 41 - 51 mmHg 05/19/2025 3:58 PM EST [facility] pO2, Damir 42(H) 25 - 40 mmHg 05/19/2025 3:58 PM [facility] HCO3, Venous 21.4(L) 22.0 - 26.0 mmol/L 05/19/2025 3:58 PM [facility] O2 Sat, Damir 77.6 % 05/19/2025 3:58 PM [facility] Base Excess, Damir -3.8(L) -2.0 - 2.0 mmol/L 05/19/2025 3:58 PM [facility] Blood Venous blood specimen / Unknown Venipuncture / Unknown 05/19/2025 3:30 PM EST 05/19/2025 3:54 PM EST us Wesley Mercedes MD LAB BLOOD ORDERABLES Final Resul t [facility] [address] [place] [address], * (ABNORMAL) Comprehensive Metabolic Panel (CMP) (05/19/2025 3:30 PM EST) Sodium 143 133 - 145 mmol/L 05/19/2025 4:52 PM [facility] Potassium 3.4(L) 3.5 - 5.5 mmol/L 05/19/2025 4:52 PM [facility] Chloride 106 96 - 110 mmol/L 05/19/2025 4:52 PM [facility] CO2 19(L) 21 - 32 mmol/L 05/19/2025 4:52 PM [facility] Anion Gap 18(H) 3 - 11 05/19/2025 4:52 PM [facility] Glucose 174(H) 70 - 100 mg/dL 05/19/2025 4:52 PM [facility] BUN 12 5 - 25 mg/dL 05/19/2025 4:52 PM [facility] Creatinine 0.73 0.50 - 1.10 mg/dL 05/19/2025 4:52 PM [facility] eGFR 89 >=60 mL/min/1. 73m2 05/19/2025 4:52 PM [facility] Comment:Calculation based on the Chronic Kidney Disease Epidemiology Collaboration (CKD-EPI) equation refit without adjustment for race. BUN/Creatinine Ratio 16.4 05/19/2025 4:52 PM [facility] Calcium 9.7 8.5 - 10.5 mg/dL 05/19/2025 4:52 PM [facility] AST (SGOT) 18 10 - 42 unit/L 05/19/2025 4:52 PM [facility] ALT (SGPT) 20 10 - 60 unit/L 05/19/2025 4:52 PM [facility] Alkaline Phosphatase 103 42 - 121 unit/L 05/19/2025 4:52 PM [facility] Total Protein 7.3 6.0 - 8.0 g/dL 05/19/2025 4:52 PM [facility] Albumin 4.6 3.2 - 5.0 g/dL 05/19/2025 4:52 PM [facility] Total Bilirubin 0.4 0.0 - 1.4 mg/dL 05/19/2025 4:52 PM [facility] Blood Venous blood specimen / Unknown Venipuncture / Unknown 05/19/2025 3:30 PM EST 05/19/2025 3:55 PM EST us Wesley Mercedes MD LAB BLOOD ORDERABLES Final Resul t [facility] [address] [place] [address], * [place] [facility] 30-74 MINUTES (05/19/2025 2:57 PM EST) Wesley Lyn MD - 05/19/2025 2:57 PM EST Wesley [...] further catastrophic decompensation resulting in respiratory failure. us Wesley Mercedes MD IN CLINIC/BEDSIDE ORDERABLES Fin al Result * SCREENING MAMMOGRAPHY BI 2-VIEW BREAST INC CAD (04/20/2021 1:15 PM EDT) Anatomical Region Laterality Modality Radiographic Kathya ging 04/10/2020 1:05 PM EDT Narrative 04/21/2021 1:01 PM EDT This is a summary report. The complete report is available in the patient's medical record. If you cannot access the medical record, please contact the sending organization for a detailed fax or copy. Full field digital screening mammography, using both 2D and tomosynthesis, reviewed with CAD and compared to previous. The breasts are composed of fatty and fibroglandular tissue. Multiple cysts are again noted on the left. No suspicious mass, architectural distortion or suspicious calcifications are identified. IMPRESSION: : No mammographic evidence of malignancy. BIRADS 2-Benign; 1. 5 year breast cancer risk assessment 1.3 % Lifetime breast cancer risk assessment 4.9 % Breast cancer risk category Low (<15%) Procedure Note Agustin Ram MD - 06/14/2022 This is a summary report. The complete report is available in thepatient's medical record. If you cannot access the medical record, pleasecontact the sending organization for a detailed fax or copy. Full field digital screening mammography, using both 2D and tomosynthesis,reviewed with CAD and compared to previous. The breasts are composed offatty and fibroglandular tissue. Multiple cysts are again noted on theleft. No suspicious mass, architectural distortion or suspiciouscalcifications are identified. IMPRESSION: : No mammographic evidence of malignancy. BIRADS 2-Benign; 1. 5 year breast cancer risk assessment 1.3 % Lifetime breast cancer risk assessment 4.9 % Breast cancer risk category Low (<15%) us Blank Richards MD IMG XR PROCEDURES Final Resu lt * DXA BONE DENSITY STUDY 1+ SITS AXIAL SKEL (05/21/2019 4:07 PM EST) Anatomical Region Laterality Modality Bone Densitometr y 05/14/2019 1:46 PM EST Narrative 05/22/2019 2:22 PM EST BONE DENSITY Lumbar Spine T-score is -2.7 (SD relative to 20-29 y/o adult) Z-score is -1.0 (SD relative to age matched peers) This is consistent with osteoporosis by criteria defined by the WHO. Left Hip T-score is -1.8 Z-score is -0.5 This is consistent with osteopenia by criteria defined by the WHO. Comparison exam(s): no statistically significant change in the bone density of the hip when compared to most recent bone density examination Confidence level is +/-95%. Impression: Based on the World Health Organization criteria, Sarahi Henry should be classified as having osteoporosis. The [facility] Department of Internal Medicine recommends using National Osteoporosis Foundation (NOF) guidelines in treatment decisions related to osteoporosis. NOF guidelines suggest considering treatment for postmenopausal women and men aged 50 or older presenting with the following: History of hip or vertebral fracture. T-score less than or equal to -2.5 (DXA) at the femoral neck, total hip, or spine, after appropriate evaluation to exclude secondary causes. Low bone mass (T-score between -1.0 and -2.5 at the femoral neck or spine) AND a 10-year probability of a hip fracture greater than or equal to 3% OR a 10-year probability of a major osteoporosis-related fracture greater than or equal to 20% based on the [place]-adapted WHO algorithm Please note that all treatment decisions require clinical judgment and consideration of individual patient factors, including patient preferences, co-morbidities, previous drug use, risk factors not captured in the FRAX model (e.g., frailty, falls, vitamin D deficiency, increased bone turnover, interval significant decline in bone density) and possible under- or over-estimation of fracture risk by FRAX. Procedure Note Agustin Ram - 06/14/2022 BONE DENSITY Lumbar Spine T-score is -2.7 (SD relative to 20-29 y/o adult) Z-score is -1.0 (SD relative to age matched peers) This is consistent with osteoporosis by criteria defined by the WHO. Left Hip T-score is -1.8 Z-score is -0.5 This is consistent with osteopenia by criteria defined by the WHO. Comparison exam(s): no statistically significant change in the bonedensity of the hip when compared to most recent bone density examination Confidence level is +/-95%. Impression: Based on the World Health Organization criteria, Sarahi Henry should beclassified as having osteoporosis. The [facility] Department of Internal Medicine recommendsusing National Osteoporosis Foundation (NOF) guidelines in treatmentdecisions related to osteoporosis. NOF guidelines suggest consideringtreatment for postmenopausal women and men aged 50 or older presentingwith the following: History of hip or vertebral fracture. T-score less than or equal to -2.5 (DXA) at the femoral neck, total hip,or spine, after appropriate evaluation to exclude secondary causes. Low bone mass (T-score between -1.0 and -2.5 at the femoral neck or spine)AND a 10-year probability of a hip fracture greater than or equal to 3% ORa 10-year probability of a major osteoporosis-related fracture greaterthan or equal to 20% based on the [place]-adapted WHO algorithm Please note that all treatment decisions require clinical judgment andconsideration of individual patient factors, including patientpreferences, co-morbidities, previous drug use, risk factors not capturedin the FRAX model (e.g., frailty, falls, vitamin D deficiency, increasedbone turnover, interval significant decline in bone density) and possibleunder- or over-estimation of fracture risk by FRAX. Blank Richards MD IMG DXA PROCEDURES Final Res ult from Last 3 Months or Most Recently Relevant to Health Maintenance Additional Health Concerns Infection Onset Date Last Indicated Enterovirus 05/19/2025 05/19/2025 Rhinovirus 05/19/2025 05/19/2025 Insurance [facility] [employer] Member Subscriber Plan / Payer (Ef fective 2023-Present) Name:Sarahi Henry Relation to Subscriber:Self Name:Sarahi Henry Payer ID:[id number] Group ID:[id number] Type:Not on file Address: [place] [address] [place] [phone] Advance Directives * Full Code - Confirmed (Latest Code Status on File) Date Activated Date Inactivated Comments 05/19/2025 7:14 PM 05/21/2025 3:52 PM This code status was ascertained in the following way: Code status discussion: discussion with patient To update the patient's code status, place a code status order. Do not modify or discontinue any currently active code status orders. * Full Code - Default Date Activated Date Inactivated Comments 05/19/2025 5:04 PM 05/19/2025 7:14 PM This is or jeffrey is used when code status has not been discussed with the patient, or code status is otherwise unknown/unconfirmed To update the patient's code status, place a code status order. Do not modify or discontinue any currently active code status orders. Care Teams Lead Principal Technical Architect Relationship Specialty Start Date End Date Josr Montejo MD [address] [place] [phone] PCP - General Family Medicine 05/19/25
--- NOTE | 2025-05-26 16:07 | HO.NURTONUR ---
Pt here w/ c/o incr sob x 2 weeks. Pt states she was recently admitted to [facility] and d/c'd 05/22 for asthma exacerbation. Pt states she started not feeling well the very next day. Pt arrived to ED tachypenic, and unable to speak in complete sentences. Resp immediately at bedside and neb tx administered. VBG shows resp alkalosis. CXR neg for pna, viral panel neg. Pt has never been hypoxic while in ED, RA sats remain 97-97&. Pt was tx'd w/ rocephin empirically in the setting of a mildly elevated WBC@14.6, and neg lactic. Ambulatory sats were wnl, however, pt was extremely fatigued post ambulation.
--- NOTE | 2025-05-26 17:06 | PHA.MEDREC ---
Addendum entered by Morelia España RPh 05/26/25 17:39: REVIEWED BY PHARMACIST Original Note: Pharmacy Consult ? Medication Reconciliation Pharmacy has completed the medication reconciliation. Spoke with pt and she confirmed her medications. PT takes Xolair once a month and states she just got it last Saturday 05/19.
[2025-05-26] MEDS: Albuterol/Iprat 2.5/0.5MG 3 ML AMPUL.NEB INHALE ×2 (19:15→23:45)
[2025-05-26] MEDS: 0.9 % Sodium Chloride Flush 3 ML SYRINGE IVFLUSH (19:22)
[2025-05-26] MEDS: guaiFENesin 200 MG/10 ML 10 ML LIQUID PO (21:02)
--- NOTE | 2025-05-26 23:21 | PC.NURSE ---
Order in for continuous telemetry but no tele monitors available at this time. JOSEPH Mejía notified.
[2025-05-27] VITALS: RESP 17
[2025-05-27] MEDS: guaiFENesin 200 MG/10 ML 10 ML LIQUID PO ×2 (03:45→08:29)
[2025-05-27 04:00] VITALS: BP 140/67; PULSE 79; RESP 17; TEMP 36.1; O2SAT 97
--- NOTE | 2025-05-27 07:40 | PC.NURSE ---
Tele orders d/c by
[2025-05-27 07:47] VITALS: BP 133/67; PULSE 75; RESP 18; TEMP 36.2; O2SAT 97
[2025-05-27] MEDS: 0.9 % Sodium Chloride Flush 3 ML SYRINGE IVFLUSH (07:56)
[2025-05-27] MEDS: Albuterol/Iprat 2.5/0.5MG 3 ML AMPUL.NEB INHALE ×2 (08:39→11:58)
[2025-05-27 08:40] VITALS: PULSE 70; RESP 16; O2SAT 98
[2025-05-27 08:51] LABS: Chlamydia pneumoniae PCR Not Detected (Not Detect.); Coronavirus 229E PCR Not Detected (Not Detect.); Coronavirus HKU1 PCR Not Detected (Not Detect.); Coronavirus NL63 PCR Not Detected (Not Detect.); Coronavirus OC43 PCR Not Detected (Not Detect.); RSV PCR Not Detected (Not Detect.); Rhino/Enterovirus PCR Not Detected (Not Detect.)
--- NOTE | 2025-05-27 11:10 | P.DS_ITS ---
DS: Providers Provider Date of Service: 05/27/25 Date of admission: 05/26/25 15:14 Date of discharge: 05/27/25 Primary care physician: Letitia Elias MD Attending physician on discharge: Travis Kc Discharging clinician: Travis Kc DS: Diagnosis Discharge Diagnosis (1) Asthma exacerbation: Status: Acute DS: Summary Hospital Course Hospital Course: HPI:70y/o f pmhx depression, asthma, hypertension, and Parkinson's disease came to ed with shortness of breath,duration pf approx. 2 weeks she has had increased shortness for breath and wheezing. She went to [facility] where she was admitted for 3 days due to asthma exacerbation. She states that she continues to be on steroids however states that her symptoms have not improved and was discharged from [facility] on 05/22, she started to feel as though her asthma was worsening. 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 States that she is taking prednisone 20 mg daily which she has been compliant with, last dose was this morning. She has been using her updrafts at home as well as taking her prednisone which has provided her with minimal relief. labs and imaging reviewed ; wbc; 14.6 bmp seems fine lactic acid normal cxr -negative. blood cultures pending patient given nebs ,steriods -sob somewhat improving -but still sob -so admission requested for asthma excerebation. She denies any chest pain, fevers, chills, abdominal pain, nausea, vomiting or diarrhea. No other complaints or concerns at this time. Hospital course:70y/o f pmhx depression, asthma, hypertension, and Parkinson's disease came to ed with shortness of breath,duration pf approx. 2 weeks she has had increased shortness for breath and wheezin:cxr negative . Patient was admitted for mild intermittent asthma exacerbation: Started on nebs, steroids, loratadine, cough medication-patient seems to be improved significantly on going home with p.o. steroids, continue home asthma medications. Blood culture negative at 24 hours. Patient is asymptomatic, sats are fine, ambulated well. Plan: Asthma exacerbation-started on nebs, steroids, cough medication: Seems to be improved significantly with the above. Going home with home medication and p.o. prednisone, cough syrup. Sats are fine, patient is ambulating fine without any symptoms. Follow-up with PCP outpatient. If any new symptoms please go to the nearest emergency room for further evaluation. Above management discussed with the patient detail length she understand and in agreement with the above plan, time spent 50 minute. Time Attestation Total time managing care of this patient today: 50 mintues. Discharge Coordination Time (in mins): 50 min Quality: Safe Use of Opioids Does Pt have an Active Cancer Diagnosis on the Problem List?: No Quality: Stroke Does the patient have a stroke diagnosis?: No Physical Exam 2 Exam: Exam: Appearance: Alert.? Oriented X3.? cvs: rrr, [id number] , no murmur res: air entery fair ,no rales wheezing abd: no rebound or guarding ,nt, bs present. ext pulses present , no cyanosis . neuro: axo3 , nonfocal. Vital Signs: Vital Signs: Last Vital Signs Temp 97.1 F 05/27/25 07:47 Pulse 70 05/27/25 08:40 Resp 16 05/27/25 08:40 BP 133/67 05/27/25 07:47 Pulse Ox 97 05/27/25 07:47 O2 Del Method Room Air 05/27/25 07:47 BMI result Body Mass Index 29.6 DS: Data Data Completed and Pending Labs on day of discharge: Laboratory Results - last 24 hr 05/26/25 05/26/25 05/26/25 11:07 11:15 11:37 WBC 14.6 H RBC 5.08 Hgb 14.0 Hct 42.3 MCV 83.3 MCH 27.6 MCHC 33.1 RDW 13.7 Plt Count 363 D MPV 10.0 Immature Gran % (Auto) 1.0 H Neut % (Auto) 77.1 H Lymph % (Auto) 16.3 L [place] % (Auto) 5.0 Eos % (Auto) 0.5 Baso % (Auto) 0.1 Lymph # (Auto) 2.4 [place] # (Auto) 0.7 Eos # (Auto) 0.1 Baso # (Auto) 0.0 Abs Immat Gran (auto) 0.14 H Absolute Neuts (auto) 11.2 H Absolute Nucleated RBC 0.000 Nucleated RBC % (auto) 0.0 PT 12.3 INR 1.0 VBG pH 7.65 H* VBG pCO2 21 VBG pO2 99 VBG HCO3 23 VBG O2 Saturation 100.0 VBG Base Excess 4.6 Sodium 138 Potassium 3.7 Chloride 107 Carbon Dioxide 21 L Anion Gap 14 BUN 16 Creatinine 0.75 Estim Creat Clear Calc 62.7 Estimated GFR > 60 Random Glucose 112 Lactic Acid Calcium 10.1 Magnesium 2.0 Total Bilirubin 0.6 AST 29 ALT 18 Alkaline Phosphatase 103 Troponin I High Sens < 2.7 NT-Pro-B Natriuret Pep 28.8 Total Protein 7.4 Albumin 4.7 Urine Color Urine Appearance Urine pH Ur Specific [place] Urine Protein Urine Glucose (UA) Urine Ketones Urine Blood Urine Nitrite Ur Leukocyte Esterase Influenza Type A (PCR) NEGATIVE Influenza Type B (PCR) NEGATIVE RSV RNA Qual (PCR) NEGATIVE SARS-CoV-2 RNA (RT-PCR) NEGATIVE 05/26/25 05/26/25 11:57 13:29 WBC RBC Hgb Hct MCV MCH MCHC RDW Plt Count MPV Immature Gran % (Auto) Neut % (Auto) Lymph % (Auto) [place] % (Auto) Eos % (Auto) Baso % (Auto) Lymph # (Auto) [place] # (Auto) Eos # (Auto) Baso # (Auto) Abs Immat Gran (auto) Absolute Neuts (auto) Absolute Nucleated RBC Nucleated RBC % (auto) PT INR VBG pH VBG pCO2 VBG pO2 VBG HCO3 VBG O2 Saturation VBG Base Excess Sodium Potassium Chloride Carbon Dioxide Anion Gap BUN Creatinine Estim Creat Clear Calc Estimated GFR Random Glucose Lactic Acid 1.7 Calcium Magnesium Total Bilirubin AST ALT Alkaline Phosphatase Troponin I High Sens NT-Pro-B Natriuret Pep Total Protein Albumin Urine Color Yellow Urine Appearance Cloudy Urine pH 8.5 Ur Specific [place] 1.010 Urine Protein Negative Urine Glucose (UA) Negative Urine Ketones Negative Urine Blood Negative Urine Nitrite Negative Ur Leukocyte Esterase Negative Influenza Type A (PCR) Influenza Type B (PCR) RSV RNA Qual (PCR) SARS-CoV-2 RNA (RT-PCR) Imaging Chest x-ray: Radiologist's impression: ITS Impressions Chest X-Ray 05/26/25 10:34 IMPRESSION: No acute pulmonary findings Discharge Plan Discharge Anticipated Discharge Date/Time: 05/27/25 11:05 Patient Disposition: Home, Self-Care Discharge Diagnosis: asthma exacerbation Referrals: Letitia Cameron MD [Primary Care Provider, Family Practice] - 1 Week Discharge Medications: New guaifenesin 100 mg/5 mL Liquid 10 mg PO Q6H Qty: 200 0RF prednisone 20 mg tablet 40 mg PO DAILY Qty: 8 0RF Continued omeprazole 40 mg capsule,delayed release(DR/EC) 40 mg PO DAILY@0630 montelukast 10 mg tablet 10 mg PO DAILY mirtazapine 15 mg tablet 15 mg PO BEDTIME carbidopa-levodopa 25-100 mg tablet 1 tab PO TID piroxicam 20 mg capsule 20 mg PO DAILY PRN (Reason: low back pain) fluoxetine 20 mg capsule 40 mg PO DAILY loratadine 10 mg tablet 10 mg PO DAILY PRN (Reason: Allergy Symptoms) calcium carbonate-vitamin D3 600 mg-10 mcg (400 unit) tablet 1 tab PO BID Xolair 150 mg/mL syringe 150 mg SUBCUT QMONTH albuterol sulfate 90 mcg/actuation Hfa Aerosol Inhaler 2 puff INHALATION Q4H PRN (Reason: Respiratory Distress) lidocaine [AsperFlex (lidocaine)] 4 % adhesive patch,medicated 1 patch topical DAILY PRN (Reason: pain) Qty: 15 0RF Held prednisone 10 mg Tablet 20 mg PO DAILY Hold Instructions: Resume on 05/31/25. Rx Instructions: STARTED ON MondayApr Discharge Orders: Discharge Order (Routine); Ordered 05/27/25 Ordered By: Travis Kc Diet: Advance to usual diet Activity on Discharge: As tolerated Stand Alone Forms: Patient Portal Discharge page Print Language: Greenlandic Care Plan Goals: Asthma exacerbation-started on nebs, steroids, cough medication: Seems to be improved significantly with the above. Going home with home medication and p.o. prednisone, cough syrup. Sats are fine, patient is ambulating fine without any symptoms. Follow-up with PCP outpatient. If any new symptoms please go to the nearest emergency room for further evaluation. Health Concerns: As above. Plan of Treatment: As above. Assessment: As above. Patient Instructions: Asthma (DC) Discharge Date/Time: 05/27/25 12:55
--- NOTE | 2025-05-27 11:29 | MHC.CM.PN ---
pt dcd hp,e self care prior to being seen by cm
[2025-05-27 12:01] VITALS: PULSE 86; RESP 15; O2SAT 97
[2025-05-27 12:15] LABS: SARS-CoV-2 PCR Not Detected (Not Detect.)
[2025-05-27 12:16] LABS: Influenza A H1 PCR Not Detected (Not Detect.); Influenza A H1-2009 PCR Not Detected (Not Detect.); Influenza A H3 PCR Not Detected (Not Detect.)
== END 2025-05-27 12:55 | disposition home or self-care (01) ==
LOC: HO.ED 12:18 → HO.EDOVER 15:25 → HO.S3 19:24
PROVIDERS: Physician Assistant Medical; Registered Nurse Emergency; Admitting Provider Internal Medicine; Emergency Provider Student in an Organized Health Care Education/Training Program; PCP Family Medicine; Visit Provider Internal Medicine
DX: J44.1 Chronic obstructive pulmonary disease with (acute) exacerbation (principal); J45.21 Mild intermittent asthma with (acute) exacerbation; R06.02 Shortness of breath; R00.0 Tachycardia, unspecified; R94.31 Abnormal electrocardiogram [ECG] [EKG]; Z03.818 Encounter for observation for suspected exposure to other biological agents ruled out; I10 Essential (primary) hypertension; G20.C Parkinsonism, unspecified; F32.A Depression, unspecified; Z79.51 Long term (current) use of inhaled steroids; Z79.899 Other long term (current) drug therapy
CPT/HCPCS: 36415; 71046; 80053; 81003; 82803; 83605; 83735; 83880; 84484; 85025; 85610; 87040; 87633; 87637; 93005; 94640; 96361; 96365; 96366; 96375; 96376; 99221; 99285; J0696; J2250; J2919; J3475

== ENCOUNTER → 2025-05-26 10:26 | Outpatient (BNV) | payer OTHER, MEDICARE, SELFPAY | PROVIDERS: PCP Family Medicine; Visit Provider Radiology Diagnostic Ultrasound | DX: R06.00 Dyspnea, unspecified (principal) | CPT/HCPCS: 71046 ==

== ENCOUNTER → 2025-05-26 10:26 | Outpatient (BNV) | payer OTHER, SELFPAY | PROVIDERS: Admitting Provider Internal Medicine; Emergency Provider Student in an Organized Health Care Education/Training Program; PCP Family Medicine; Visit Provider Internal Medicine | DX: R00.0 Tachycardia, unspecified (principal) | CPT/HCPCS: 93010 ==

== ENCOUNTER → 2025-05-26 15:14 | Outpatient (BNV) | payer OTHER, SELFPAY | PROVIDERS: Admitting Provider Internal Medicine; Emergency Provider Student in an Organized Health Care Education/Training Program; PCP Family Medicine; Visit Provider Internal Medicine | DX: J45.21 Mild intermittent asthma with (acute) exacerbation (principal) | CPT/HCPCS: 99222; 99239 ==